=== PATIENT | male | born 1965 | race Caucasian/White ===

== ENCOUNTER 2017-08-06 20:13 | Inpatient (IN) ==
[2017-08-06] MEDS ORDERED: Aspirin 81 MG TAB.CHEW PO ONE (20:44)
[2017-08-06] MEDS ORDERED: 0.9 % Sodium Chloride 500 ML IVC ONE (20:44)
[2017-08-06] MEDS ORDERED: Clindamycin 600 MG/50 ML 600 MG/50 ML IV.SOLN IVPB ONE (20:46)
[2017-08-06] MEDS ORDERED: cefTRIAXone 1,000 MG in Water for inj. (sterile) 20 ML 10 ML IVP ONE (20:46)
[2017-08-06] MEDS ORDERED: Isovue-370 500 ML INFUS..BTL IV ONE (20:46)
[2017-08-06 21:08] LABS: Hematocrit 38.7 % (37.5-50.1); Hemoglobin 12.7 g/dL (12.9-16.9); Mean Corpuscular HGB Conc 32.8 g/dL (31.6-35.5); Mean Corpuscular Hemoglobin 28.9 pg (28.0-33.3); Mean Corpuscular Volume 88.2 fL (83.0-100.0); Mean Platelet Volume 10.3 fL (9.4-12.4); Platelet Count 221 K/mcL (140-400); Red Blood Count 4.39 M/mcL (4.19-5.50); Red Cell Distribution Width 13.9 % (11.5-14.5)
[2017-08-06 21:12] LABS: BUN/Creatinine Ratio 13 (6-26); Blood Urea Nitrogen 31 mg/dL (6-20); Carbon Dioxide 24 mEq/L (23-29); Chloride 101 mEq/L (98-107); Glucose 112 mg/dL (70-105); Osmolality,Calculated 281 (280-300); Sodium 132 mEq/L (136-145); Troponin I < 0.03 ng/mL (< 0.04); eGFR For African Americans 34 (> 60); eGFR For Non-African Americans 28 (> 60)
[2017-08-06 21:15] LABS: INR 1.2; Prothrombin Time 12.9 Seconds (9.4-12.1)
[2017-08-06] MEDS ORDERED: 0.9 % Sodium Chloride 1,000 ML IVC ONE (21:28)
--- NOTE | 2017-08-06 21:37 | Emergency Department Note ---
Disposition Clinical Impression: Dehydration, Acute renal insufficiency Chest pain Qualifiers: Chest pain type: unspecified Qualified Code(s): R07.9 - Chest pain, unspecified Fever Qualifiers: Fever type: unspecified Qualified Code(s): R50.9 - Fever, unspecified Pharyngitis Qualifiers: Pharyngitis/tonsillitis etiology: unspecified etiology Qualified Code(s): J02.9 - Acute pharyngitis, unspecified Disposition: Admitted As Inpatient Condition: Fair Referrals: Salas Norman CNP [Primary Care Provider] - Forms: ED Satisfaction Letter Time of Disposition: 23:05 General Adult HPI - General Chief complaint: ED Chest Pain Stated complaint: swollen tongue/chest pain Time Seen by Provider: 08/06/17 20:15 Source: patient, EMS Mode of arrival: EMS Limitations: no limitations Nursing Notes Reviewed: Yes Vital Signs Reviewed: Yes - History of Present Illness HPI Narrative: Patient presents emergency room with complaint of generalized malaise and chest discomfort and pain. Patient was diagnosed with a sore throat and strep infections based on antibiotics within the last several days. Over that timeframe is progressively gotten worse to the point now where he feels that his teeth are hurting and he has swelling to his face. He has not been able to eat or drink anything feels generally ill. Patient denies any other trauma or injury. Denies any other medical issues at this time. Patient was just concerned because he is feeling so sick and decided to come into the emergency room Onset (ago): day(s) Location: head, face Radiation: non-radiation Pain Severity: moderate Pain Scale: 8 Quality: aching Consistency: constant Improves with: nothing Worsens with: movement Associated symptoms: Reports: chest pain, cough, fever/chills, loss of appetite , malaise Treatments Prior to Arrival: none - Related Data Home Medications Medication Instructions Recorded Confirmed No Known Home Drugs 08/06/17 08/06/17 Allergies Allergy/AdvReac Type Severity Reaction Status Date / Time gabapentin [From Neurontin] AdvReac Nausea Verified 08/06/17 21:48 pregabalin [From Lyrica] AdvReac Nausea Verified 08/06/17 21:48 All systems ED: reviewed and negative except as stated. Review of Systems: As Per HPI Constitutional: Reports: fever, chills, weakness ENT ED: Reports: throat pain, dental pain. Denies: ear pain, hearing loss, epistaxis Cardiovascular: Reports: chest pain. Denies: palpitations, dyspnea on exertion , orthopnea, edema Respiratory: Reports: cough. Denies: dyspnea, wheezes Gastrointestinal: Denies: nausea, vomiting, diarrhea Genitourinary: Denies: dysuria, frequency Musculoskeletal: Reports: back pain. Denies: neck pain Integumentary: Denies: rash, abrasion Neurological: Denies: headache Endocrine: Reports: fatigue Past Medical History - Past Medical History Attestation: Yes The following information was validated with the patient. Source: patient Medical history: Reports: GERD, kidney stones, other Surgical history: Reports: other Psychiatric history: Reports: no psych history - Social History Smoking Status: Current every day smoker Smokeless Tobacco Status: No Alcohol use: Reports: none Drug use: Reports: none Physical Exam - General Limitations: no limitations General appearance: alert, in no apparent distress - Head Head exam: atraumatic, normocephalic, normal inspection - ENT ENT exam: normal exam, normal oropharynx, mucous membranes moist - Neck Neck exam: Present: normal inspection, trachea midline, tenderness, lymphadenopathy. Absent: meningismus - Chest Chest inspection: Present: normal inspection, symmetric chest wall rise. Absent : tenderness - Respiratory Respiratory exam: Present: normal lung sounds bilaterally. Absent: respiratory distress, wheezes, accessory muscle use - Cardiovascular Cardiovascular exam: Present: regular rate, normal rhythm, normal heart sounds - Abdominal Exam Abdominal exam: Present: soft, Non-Tender. Absent: tenderness, distention, guarding, rebound, rigidity, Harris's sign, Rovsing's sign, tenderness at McBurney's Point - Extremities Exam Extremities exam: Present: normal inspection, full ROM, normal capillary refill. Absent: tenderness - Back Exam Back exam: Present: normal inspection, full ROM. Absent: tenderness, CVA tenderness (R), CVA tenderness (L) - Neurological Exam Neurological exam: Present: alert, oriented X3, CN II-XII intact, normal gait - Skin Skin exam: Present: warm, dry, intact, normal color Course Course Narrative: Patient seen and examined the time of arrival. See history of present illness. Vital signs reviewed on presentation. Patient is a very ill-appearing gentleman does appear to be in some moderate distress. He was just diagnosed with strep pharyngitis and placed on antibiotics. He also had a dental infection. Patient has been taking his medications at home without relief. He presents here today with persistence of his generalized malaise is uncomfortable presentation muscle aches and a sore throat that is progressively getting worse. He feels that he is unable to eat or drink anything. Currently he also has a complaint of chest discomfort and pain. Is mainly when he swallows. Patient denies any trauma, injury, shortness of breath. He does complain of nausea. No vomiting or diarrhea. He has had intermittent fevers and chills. He has no vision changes or other illnesses at this point. Patient is concerning for oral fashion. An infection including uveitis, tracheitis, potential epiglottitis or persistent strep infection. Patient was CT imaging of the soft tissue of the neck as well as the basal facial bones looking for infectious. Patient will have laboratory workup including CBC chemistry blood cultures throat swab urinalysis completed here as well as fluid hydration and antibiotics and pain medication as needed. Patient's management will be determined once workup and treatment course are established. Otherwise patient does not have any acute pathology noted at this time. The oropharynx was reviewed. There is no visible signs of asymmetry is midline. Tonsils are enlarged at +2 bilaterally and nontoxic. Patient has slight trismus on exam will not open the mouth entirely. Otherwise is handling his secretions without any problem. - Reevaluation(s) Reevaluation #1: Patient's IV contrasted scans of the face and the neck or cancel this time secondary to acute renal insufficiency. Patient's creatinine today is 2.4 minutes never been greater than 0.8 in the past. Fluid hydration will be given. Patient was also febrile to 100.5. Blood cultures and Biaxin started been ordered. Patient had lactic acid at this time. We will continue monitor his treatment course is completed. Patient will most likely need admission Time: 21:43 Reevaluation #2: Patient has CT imaging of the neck does not show any focal fluid accumulation. There is slight swelling. Repeat evaluation of the face was completed by myself the patient's eye transvenous but uvula is midline and there is no swelling. The hospitalist Dr. Sahni and reviewed the presentation symptoms. He did not have any other acute recommendations this time. Patient will be admitted for fluid hydration and evaluation of her presentation a cause the [place] I here today. Patient is otherwise clinically stable informed the plan. Antibiotics have been started. Patient is in some slight distress but getting better after the interventions have been given. Admission process to be completed this time. Time: 23:04 Vital Signs Temperature 100.5 F H 08/06/17 20:20 Pulse Rate 94 08/06/17 20:20 Respiratory Rate 16 08/06/17 20:20 Blood Pressure 123/83 08/06/17 20:20 O2 Sat by Pulse Oximetry 98 08/06/17 20:20 Temperature 100.5 F H 08/06/17 20:20 Pulse Rate 94 08/06/17 20:20 Respiratory Rate 16 08/06/17 20:20 Blood Pressure 123/83 08/06/17 20:20 O2 Sat by Pulse Oximetry 98 08/06/17 20:20 Oxygen Delivery Oxygen Delivery Room Air Medical Decision Making - MDM Narrative Medical decision making narrative: Fevers, generalized malaise, sore throat, acute renal insufficiency and dehydration - Medical Records Medical records reviewed: Yes I reviewed the patient's medical records. - Lab Data Lab results reviewed: Yes I reviewed the patient's lab results. Result diagrams: 08/06/17 20:54 08/06/17 20:54 Lab Results 08/06/17 08/06/17 08/06/17 Range/Units 20:44 20:45 20:54 WBC 9.6 (4.3-11.1) K/mcL RBC 4.39 (4.19-5.50) M/mcL Hgb 12.7 L (12.9-16.9) g/dL Hct 38.7 (37.5-50.1) % MCV 88.2 (83.0-100.0) fL MCH 28.9 (28.0-33.3) pg MCHC 32.8 (31.6-35.5) g/dL RDW 13.9 (11.5-14.5) % Plt Count 221 (140-400) K/mcL MPV 10.3 (9.4-12.4) fL Immature Gran % Test Not Performed Seg Neutrophils % 62.0 % Band Neutrophils % 22.0 H (0-4) % Lymphocytes % 10.0 % Monocytes % 6.0 % Eosinophils % Test Not Performed Basophils % Test Not Performed Neutrophils # 8.1 (1.6-8.9) K/mcL Lymphocytes # 1.0 (0.6-4.6) K/mcL Monocytes # 0.6 (0.0-1.3) K/mcL Eosinophils # Test Not Performed Basophils # Test Not Performed Platelet Estimate Normal (Normal) PT 12.9 H (9.4-12.1) Seconds INR 1.2 APTT 30.0 (26.0-36.0) Seconds Sodium (136-145) mEq/L Potassium (3.5-5.1) mEq/L Chloride (98-107) mEq/L Carbon Dioxide (23-29) mEq/L BUN (6-20) mg/dL Creatinine (0.70-1.30) mg/dL Est GFR ( Amer) (> 60) Est GFR (Non-Af Amer) (> 60) BUN/Creatinine Ratio (6-26) Glucose (70-105) mg/dL Calculated Osmolality (280-300) Lactic Acid (0.5-2.2) mmol/L Calcium (8.6-10.3) mg/dL Total Bilirubin (0.3-1.0) mg/dL Direct Bilirubin (0.0-0.2) mg/dL Indirect Bilirubin (0.0-1.2) mg/dL AST (13-39) Units/L ALT (7-52) Units/L Alkaline Phosphatase (34-104) Units/L Troponin I (< 0.04) ng/mL B-Natriuretic Peptide 91 (Less than 100) pg/mL Serum Total Protein (6.4-8.9) g/dL Albumin (3.5-5.7) g/dL Globulin (2.4-3.5) g/dL Albumin/Globulin Ratio (1.1-2.2) Lipase (11-82) Units/L 08/06/17 08/06/17 Range/Units 20:54 21:52 WBC (4.3-11.1) K/mcL RBC (4.19-5.50) M/mcL Hgb (12.9-16.9) g/dL Hct (37.5-50.1) % MCV (83.0-100.0) fL MCH (28.0-33.3) pg MCHC (31.6-35.5) g/dL RDW (11.5-14.5) % Plt Count (140-400) K/mcL MPV (9.4-12.4) fL Immature Gran % Seg Neutrophils % % Band Neutrophils % (0-4) % Lymphocytes % % Monocytes % % Eosinophils % Basophils % Neutrophils # (1.6-8.9) K/mcL Lymphocytes # (0.6-4.6) K/mcL Monocytes # (0.0-1.3) K/mcL Eosinophils # Basophils # Platelet Estimate (Normal) PT (9.4-12.1) Seconds INR APTT (26.0-36.0) Seconds Sodium 132 L (136-145) mEq/L Potassium 4.0 (3.5-5.1) mEq/L Chloride 101 (98-107) mEq/L Carbon Dioxide 24 (23-29) mEq/L BUN 31 H (6-20) mg/dL Creatinine 2.43 H (0.70-1.30) mg/dL Est GFR ( Amer) 34 L (> 60) Est GFR (Non-Af Amer) 28 L (> 60) BUN/Creatinine Ratio 13 (6-26) Glucose 112 H (70-105) mg/dL Calculated Osmolality 281 (280-300) Lactic Acid 0.9 (0.5-2.2) mmol/L Calcium 9.0 (8.6-10.3) mg/dL Total Bilirubin 0.5 (0.3-1.0) mg/dL Direct Bilirubin 0.2 (0.0-0.2) mg/dL Indirect Bilirubin 0.3 (0.0-1.2) mg/dL AST 24 (13-39) Units/L ALT 14 (7-52) Units/L Alkaline Phosphatase 93 (34-104) Units/L Troponin I < 0.03 (< 0.04) ng/mL B-Natriuretic Peptide (Less than 100) pg/mL Serum Total Protein 6.6 (6.4-8.9) g/dL Albumin 3.4 L (3.5-5.7) g/dL Globulin 3.2 (2.4-3.5) g/dL Albumin/Globulin Ratio 1.1 (1.1-2.2) Lipase 6 L (11-82) Units/L - Radiology Data Radiology results reviewed: Yes I reviewed the patient's radiology results. Chest x-ray is unremarkable for acute infectious etiology or trauma - EKG Data EKG #1 EKG attestation: Yes I reviewed and interpreted this EKG. EKG results narrative: EKG shows sinus rhythm. Ventricular rate of 96. [place] interval 123. QRS duration 102. QTC of 380. [place] appears to be slightly leftward deviated. Intervals appear to be normal. No acute signs of ST segment elevation or abnormality. No acute signs of WPW or Brug[place]. Patient has comparable EKG from 11/17/15 with no acute changes.
[2017-08-06 22:03] LABS: Alanine Aminotransferase 14 Units/L (7-52); Albumin 3.4 g/dL (3.5-5.7); Albumin/Globulin Ratio 1.1 (1.1-2.2); Alkaline Phosphatase 93 Units/L (34-104); Aspartate Amino Transferase 24 Units/L (13-39); Bilirubin,Direct 0.2 mg/dL (0.0-0.2); Bilirubin,Indirect 0.3 mg/dL (0.0-1.2); Bilirubin,Total 0.5 mg/dL (0.3-1.0); Globulin 3.2 g/dL (2.4-3.5); Lipase 6 Units/L (11-82); Total Protein 6.6 g/dL (6.4-8.9)
[2017-08-06 22:04] LABS: Monocytes # 0.6 K/mcL (0.0-1.3); Neutrophils # 8.1 K/mcL (1.6-8.9)
[2017-08-06 22:06] LABS: Platelet Estimate Normal (Normal)
[2017-08-06] MEDS ORDERED: Ondansetron 4 MG/2 ML VIAL IVP ONE (22:15)
[2017-08-06] MEDS ORDERED: Dexamethasone 4 MG/ML VIAL IVP ONE (22:18)
[2017-08-06] MEDS ORDERED: *HR* FentaNYL (PF) 100 MCG/2 ML VIAL IVP ONE (22:18)
[2017-08-07] MEDS: Chloraseptic Spray 177 ML BOTTLE MM PRN ×2 (00:46→03:23)
[2017-08-07] MEDS: Ondansetron 4 MG/2 ML VIAL IVP PRN ×3 (00:49→22:25)
[2017-08-07] MEDS ORDERED: Naloxone 0.4 MG/ML INJ IVP PRN (01:00)
--- NOTE | 2017-08-07 01:13 | Internal Med History&Physical ---
Date of Encounter: 08/07/17 Time of Encounter: 01:09 Internal Medicine - H&P: HPI Chief complaint: throat pain Admitted From: Emergency Dept Plans for Post Hospital Care: Home History of present illness: Mr. Wilson is a 52 year old male with PMHx of lumbar radiculopathy, degenerative disc disease, CAD, HLD, history of drug abuse (cocaine, methamphetamine). Patient arrived to the ED today with chief complaint of generalized malaise, chest discomfort, throat pain that has progressively been getting worse, poor oral intake. Patient states that he started to have their pain that started about 3 days ago. He also reported headaches and pain in both of his ears. At that time he went to urgent care and was diagnosed with a strep infection. He was started on antibiotics. However, his throat pain has progressively been getting worse. He admits to nausea, vomiting over the past few days. He had about 3-4 episodes of diarrhea yesterday. He admits to subjective fevers and chills. He denies cough, admits to chest discomfort on the left side, admits to shortness of breath. He also states that he is not been eating or drinking well. He reports about a 20 pound weight loss over the past 2 months. Social history: denies alcohol use, history of cocaine and methamphetamine use, last use about a month ago. Denies history of IV drug use. Past Med Surg Social Fam HX - Past Medical History Medical history: GERD, kidney stones Psychiatric history: no psych history - Past Surgical History Surgical History: other - Social History Smoking Status: Current every day smoker Smokeless Tobacco Status: No Alcohol use: none Drug use: methamphetamine - Family History Mother Hx Family Cancer: Yes (lymphoma) Father Hx Family Endocrine Disorder: Yes (DM) Internal Medicine - H&P: Meds No Known Home Drugs 08/06/17 [History] 3 Allergy/AdvReac Type Severity Reaction Status Date / Time gabapentin [From Neurontin] AdvReac Nausea Verified 08/06/17 21:48 pregabalin [From Lyrica] AdvReac Nausea Verified 08/06/17 21:48 All Systems PM: A 10-system review of systems was performed and is negative for pertinent findings except as documented above in the HPI. - Constitutional Vitals: Temp Pulse Resp BP Pulse Ox 98.5 F 88 18 138/81 100 08/06/17 22:46 08/06/17 22:46 08/06/17 22:46 08/06/17 22:46 08/07/17 00:27 General appearance: Present: A&O X 3, pleasant, severe distress (Secondary to throw pain. Patient is toxic appearing.) - ENT ENT exam: Present: mucous membranes moist Additional comments: Uvula appear swollen, bilateral tonsils appear enlarged, could not get a good few because patient had pain upon opening his mouth. - Respiratory Respiratory exam: Present: CTAB - Cardiovascular Cardiovascular exam: Present: RRR, +S1, +S2 - GI/Abdominal GI/Abdominal exam: Present: normal bowel sounds, soft. Absent: distended, tenderness - Extremities Exam Extremities exam: Absent: cyanotic, pedal edema - Neurological Exam Neurological exam: Present: alert, oriented X3 - Psychiatric Psychiatric exam: Present: anxious - Skin Skin exam: Present: intact Internal Med - H&P Results - Labs CBC & Chem 7: 08/06/17 20:54 08/06/17 20:54 - Assessment and plan (1) Sepsis Current Visit: No Status: Acute Assessment and plan: Patient had symptoms of throat pain that started about 3 days ago. He went urgent care and was given antibiotics for strep infection. However, his throat pain was progressively getting worse so he came to the emergency department. Face CT showed no acute traumatic injury of the facial bones, nasal bone deformity of indeterminate age present. Chronic pacification of the left frontal sinus with air fluid level in the left maxillary sinus. Right tonsillar enlargement was not well visualized. Soft tissue neck CT showed fullness of the right [place] tonsillar fossa, right pharyngeal wall extending into the hypopharynx, edematous changes in the right submandibular space. Chest x-ray was unremarkable. Upon arrival to the ED, patient had fever of 100.5, HR in 90s, 22% band neutrophils. Suspected source of infection: pharyngitis. Lactic acid 0.9 strep screen negative Plan: IVF for LESLIE clindamycin consult to ENT in the am. Qualifiers: Sepsis type: sepsis due to unspecified organism Qualified Code(s): A41.9 - Sepsis, unspecified organism (2) Pharyngitis Current Visit: Yes Status: Acute Assessment and plan: Plan as above Qualifiers: Pharyngitis/tonsillitis etiology: unspecified etiology Qualified Code(s): J02.9 - Acute pharyngitis, unspecified (3) LESLIE (acute kidney injury) Current Visit: Yes Status: Acute Assessment and plan: Suspect prerenal etiology secondary to dehydration in setting of poor oral intake plan: IV fluids UA check urine sodium and urine creatinine recheck kidney function with morning lobs. (4) Tobacco abuse Current Visit: No Status: Chronic Assessment and plan: nicotine patch PRN (5) Chest pain Current Visit: Yes Status: Acute Assessment and plan: patient reports chest pain EKG unremarkable will trend troponins. Qualifiers: Chest pain type: chest pain due to myocardial ischemia Ischemic chest pain type: unspecified angina pectoris type Qualified Code(s): I25.9 - Chronic ischemic heart disease, unspecified (6) DVT prophylaxis Current Visit: No Status: Acute Assessment and plan: heparin SQ - Time Spent With Patient Total time spent is greater than 50% in coordination of care (as documented) at patient's floor/unit and/or counseling patient:
[2017-08-07] MEDS: 0.9 % Sodium Chloride 1,000 ML IVC SCH ×5 (01:16→20:57)
[2017-08-07] MEDS ORDERED: Nicotine 14 MG PATCH.TD24 TD PRN (01:18)
[2017-08-07 01:34] LABS: Basophils % 0.2 %; Eosinophils % 0.1 %; Hematocrit 35.8 % (37.5-50.1); Hemoglobin 11.9 g/dL (12.9-16.9); Immature Granulocytes % 0.2 % (0-4); Lymphocytes # 0.4 K/mcL (0.6-4.6); Lymphocytes % 4.4 %; Mean Corpuscular HGB Conc 33.2 g/dL (31.6-35.5); Mean Corpuscular Hemoglobin 29.1 pg (28.0-33.3); Mean Corpuscular Volume 87.5 fL (83.0-100.0); Mean Platelet Volume 10.1 fL (9.4-12.4); Monocytes # 0.4 K/mcL (0.0-1.3); Platelet Count 198 K/mcL (140-400); Red Blood Count 4.09 M/mcL (4.19-5.50); Red Cell Distribution Width 13.8 % (11.5-14.5); Segmented Neutrophils % 91.1 %
[2017-08-07 01:50] LABS: Calcium 8.4 mg/dL (8.6-10.3); Magnesium 1.8 mg/dL (1.6-2.6); Phosphorous 2.1 mg/dL (2.7-4.5); Potassium 4.5 mEq/L (3.5-5.1)
[2017-08-07 02:18] LABS: Platelet Estimate Normal (Normal)
--- NOTE | 2017-08-07 02:21 | Event Note ---
Date of Encounter: 08/07/17 Time of Encounter: 02:16 Patient seen and examined. I agree with the H&P as written by the Resident Physician. Patient with recent diagnosis of strep pharyngitis??? put on oral abx from urgent care. Comes with worsening sore throat and poor PO intake. Imaging studies in ED done without contrast showed right tonsilar enlargement. Patient has b/l tonsilar swelling on examination, although he is not able to open his mouth fully. Patient is febrile in the ED. Labs show acute kidney failure. No respiratory symptoms, CTAB RRR. S1, S2, No m/r/g Abd soft, NT, ND No edema, 2+DP Will admit IV clindamycin c/s ENT. IV fluids NPO continuous pulse ox
[2017-08-07 03:54] LABS: Color,Urine Dark Yellow (Yellow)
[2017-08-07 03:55] LABS: Bilirubin,Urine Negative (Negative); Blood,Urine Negative (Negative); Clarity,Urine Clear (Clear); Glucose,Urine (UA) Normal (Normal); Ketones,Urine Negative (Negative); Leukocyte Esterase,Urine Negative (Negative); Nitrite,Urine Negative (Negative); PH,Urine 5.5 pH Units (5.0-8.0); Protein,Urine 100 mg/dL (Neg-Trace); Specific Gravity,Urine 1.021 (1.010-1.025); Urobilinogen,Urine Normal (Normal)
[2017-08-07 03:59] LABS: Sodium, Urine 54.4 mEq/L
[2017-08-07] MEDS: *HR* Heparin 5,000 UNIT/ML VIAL SQ SCH ×2 (05:24→16:10)
[2017-08-07] MEDS ORDERED: Clindamycin 600 MG/50 ML 600 MG/50 ML IV.SOLN IVPB SCH (08:00)
[2017-08-07] MEDS: Clindamycin 900 MG/50 ML 900 MG/50 ML IV.SOLN IVPB SCH ×2 (08:39→16:09)
[2017-08-07] MEDS: Dexamethasone 10 MG/ML VIAL IVP SCH ×2 (08:45→16:09)
[2017-08-07] MEDS ORDERED: OXYCODONE Oral CONC 10 MG/0.5 ML ORAL.SYG SL ONE (09:00)
--- NOTE | 2017-08-07 09:11 | ENT - Consult Note ---
Date of Encounter: 08/07/17 Time of Encounter: 09:08 Assessment and Plan (1) Tonsillitis Current Visit: Yes Status: Acute (2) Peritonsillar abscess Current Visit: Yes Status: Acute Pt examined today in moderate distress admitted overnight. I am concerned for right UPPER CUTTER MACHINE with developing ludwigs angina due to his developing submandibular edema. CT reviewed - limited exam without contrast - submandibular and parapharyngeal edema, small effusions possibly but no large fluid collections or definite abscess He needs initiation of IV abx BRII as well as steroids Recommend Clinda 900 IV q8 for now and Decadron 10mg q8 x 3 doses Temp 99.1 - follow temp curves WBC wnl thus far Source is likely UPPER CUTTER MACHINE or possible dental etiology Keep in NPO for now, I will re-examin mid day for improvement with therapies and perform NPL to eval the rest of the airway Low threshold for OR this afternoon for drainage if no improvement Pain and nausea control History of Present Illness Consult date: 08/07/17 Reason for ENT Consult: peritonsillar abscess History of present illness: Pt is a 52 male with sore throat and dysphagia x 4 days. Has failed outpatient po abx, but he is unsure what he has taken. Reports increasing sore throat, difficulty swallowing, and now trouble with secretions that has increased over the last 12 hours. Denies SOB or dyspnea or CP. Denies prior episodes like this. Admits to prior drug use but denies immune deficiency or HIV. Admits to multiple dental caries including mandibular molars b/l. He has not had much to eat over the last few days due to odynophagia. This am he is in moderate pain and having nausea. Past Med Surg Social Fam HX - Past Medical History Medical history: GERD, kidney stones Psychiatric history: no psych history - Past Surgical History Surgical History: other - Social History Smoking Status: Current every day smoker Smokeless Tobacco Status: No Alcohol use: none Drug use: methamphetamine - Family History Mother Hx Family Cancer: Yes (lymphoma) Father Hx Family Endocrine Disorder: Yes (DM) Medications and Allergies No Known Home Drugs 08/06/17 [History] 3 Allergy/AdvReac Type Severity Reaction Status Date / Time gabapentin [From Neurontin] AdvReac Nausea Verified 08/06/17 21:48 pregabalin [From Lyrica] AdvReac Nausea Verified 08/06/17 21:48 ENT - ROS All systems PM: reviewed and no additional remarkable complaints except as stated - Constitutional Constitutional ROS: as per HPI ENT Exam Initial Vital Signs Temp Pulse Resp BP Pulse Ox 100.5 F H 94 16 123/83 98 08/06/17 20:20 08/06/17 20:20 08/06/17 20:20 08/06/17 20:20 08/06/17 20:20 - General physical appearance well developed, well nourished, moderate distress - Eyes normal ocular movement - ENT normal pinna, normal nares, Other (+Trismus thus limited oral exam, left uvular deviation and probable right UPPER CUTTER MACHINE. There is edema within the submandibular space and TTP throughout the neck exam.) - Neck other (TTP, submandibular edema) - Respiratory normal expansion, normal respiratory effort - Abdomen Abdomen: no distended - Integumentary no rash, no growths - Neurologic CN 2-12 grossly intact, normal coordination, normal sensation - Musculoskeletal normal posture - Psychiatric oriented to time, oriented to person, oriented to place Exam Initial Vital Signs Temp Pulse Resp BP Pulse Ox 100.5 F H 94 16 123/83 98 08/06/17 20:20 08/06/17 20:20 08/06/17 20:20 08/06/17 20:20 08/06/17 20:20 Results - Labs 08/07/17 01:17 08/07/17 01:17 Abnormal lab results RBC 4.09 M/mcL (4.19-5.50) L 08/07/17 01:17 Hgb 11.9 g/dL (12.9-16.9) L 08/07/17 01:17 Hct 35.8 % (37.5-50.1) L 08/07/17 01:17 Band Neutrophils % 22.0 % (0-4) H 08/06/17 20:54 Lymphocytes # 0.4 K/mcL (0.6-4.6) L 08/07/17 01:17 PT 12.9 Seconds (9.4-12.1) H 08/06/17 20:44 Sodium 134 mEq/L (136-145) L 08/07/17 01:17 Carbon Dioxide 21 mEq/L (23-29) L 08/07/17 01:17 BUN 32 mg/dL (6-20) H 08/07/17 01:17 Creatinine 2.40 mg/dL (0.70-1.30) H 08/07/17 01:17 Est GFR ( Amer) 35 (> 60) L 08/07/17 01:17 Est GFR (Non-Af Amer) 29 (> 60) L 08/07/17 01:17 Glucose 121 mg/dL (70-105) H 08/07/17 01:17 Calcium 8.4 mg/dL (8.6-10.3) L 08/07/17 01:17 Phosphorus 2.1 mg/dL (2.7-4.5) L 08/07/17 01:17 Albumin 3.4 g/dL (3.5-5.7) L 08/06/17 20:54 Lipase 6 Units/L (11-82) L 08/06/17 20:54 Urine Protein 100 mg/dL (Neg-Trace) H 08/07/17 03:25 Diabetes panel 08/07/17 Range/Units 01:17 Sodium 134 L (136-145) mEq/L Potassium 4.5 (3.5-5.1) mEq/L Chloride 105 (98-107) mEq/L Carbon Dioxide 21 L (23-29) mEq/L BUN 32 H (6-20) mg/dL Creatinine 2.40 H (0.70-1.30) mg/dL Glucose 121 H (70-105) mg/dL Calcium 8.4 L (8.6-10.3) mg/dL Calcium panel 08/07/17 Range/Units 01:17 Calcium 8.4 L (8.6-10.3) mg/dL Phosphorus 2.1 L (2.7-4.5) mg/dL Pituitary panel 08/07/17 Range/Units 01:17 Sodium 134 L (136-145) mEq/L Potassium 4.5 (3.5-5.1) mEq/L Chloride 105 (98-107) mEq/L Carbon Dioxide 21 L (23-29) mEq/L BUN 32 H (6-20) mg/dL Creatinine 2.40 H (0.70-1.30) mg/dL Glucose 121 H (70-105) mg/dL Calcium 8.4 L (8.6-10.3) mg/dL Adrenal panel 08/07/17 Range/Units 01:17 Sodium 134 L (136-145) mEq/L Potassium 4.5 (3.5-5.1) mEq/L Chloride 105 (98-107) mEq/L Carbon Dioxide 21 L (23-29) mEq/L BUN 32 H (6-20) mg/dL Creatinine 2.40 H (0.70-1.30) mg/dL Glucose 121 H (70-105) mg/dL Calcium 8.4 L (8.6-10.3) mg/dL All other labs normal. Consult Discharge Plan - Plan Referrals: Salas Norman, [facility] [Primary Care Provider] -
[2017-08-07] MEDS: *HR* FentaNYL (PF) 100 MCG/2 ML VIAL IVP PRN ×2 (11:32→20:57)
--- NOTE | 2017-08-07 13:29 | Event Note ---
Date of Encounter: 08/07/17 Time of Encounter: 13:26 S: I saw the patient again over the lunch hour. Less diaphoresis and distress. He appeared more calm and voice was improved. Still with pain and odynophagia. O: Tmax 99.5 from 99.1 this am. VSS WBC wnl Improved trismus from morning exam A: 1. Right COPYWRITING INTERN 2. tonsillitis 3. Dental caries 4. Neck swelling Procedure: COPYWRITING INTERN I&D Preop dx: Right COPYWRITING INTERN Postop dx: same Procedure in detail: Consent was obtained. The soft palate was anesthetized with topical benzocaine spray and 1ml of injected 1% lidocaine with epi. A 19 gauge needle was used to aspirate the area of COPYWRITING INTERN. No birgit purulence encountered but thin turbid fluid - likely phlegmon effusion - was aspirated. An 11 blade was used to make an incision in the soft palate to allow continue egress of infection and opened with a hemostat. He was hemostatic at the end of the procedure and tolerated it well. Plan: Bedside I&D of COPYWRITING INTERN done today. Pt tolerated well with immediate improvement in trismus and voice. No birgit purulence encountered but turbid thin fluid was aspirated. Continue IV therapies - Clinda and Decadron - add Unasyn Would like a repeat neck CT with contrast tomorrow morning if possible Hope for improvement, but may need more formal drainage in OR. NPO at [facility]
--- NOTE | 2017-08-07 14:22 | Internal Med Progress Note ---
Date of Encounter: 08/07/17 Time of Encounter: 14:19 - Assessment and plan (1) Sepsis Current Visit: No Status: Acute Assessment and plan: sepsis 2ry to right peritonsillar abscess/Dima's angina s/p I and D Patient had symptoms of throat pain that started about 5 days ago. He went urgent care and was given Keflex ( took it for 1 1/2 days) for strep infection. Throat pain was progressively getting worse Face CT showed no acute traumatic injury of the facial bones, nasal bone deformity of indeterminate age present. Chronic pacification of the left frontal sinus with air fluid level in the left maxillary sinus. Right tonsillar enlargement was not well visualized. Soft tissue neck CT showed fullness of the right [place] tonsillar fossa, right pharyngeal wall extending into the hypopharynx, edematous changes in the right submandibular space. Chest x-ray was unremarkable. Upon arrival to the ED, patient had fever of 100.5, HR in 90s, 22% band neutrophils. Suspected source of infection: pharyngitis. Lactic acid 0.9 strep screen negative IVF clindamycin day 2 ( was going to receive Unasyn but apparently failed Kefflex add vancomycin, ID consulted Decadron IV ENT following the case CT of the neck with contrast in am IF renal function improves Qualifiers: Sepsis type: sepsis due to unspecified organism Qualified Code(s): A41.9 - Sepsis, unspecified organism (2) Tobacco abuse Current Visit: No Status: Chronic Assessment and plan: nicotine patch PRN (3) Pharyngitis Current Visit: Yes Status: Acute Assessment and plan: Plan as above Qualifiers: Pharyngitis/tonsillitis etiology: unspecified etiology Qualified Code(s): J02.9 - Acute pharyngitis, unspecified (4) LESLIE (acute kidney injury) Current Visit: Yes Status: Acute Assessment and plan: DUe to sepsis Suspect prerenal etiology secondary to dehydration in setting of poor oral intake plan: IV fluids (5) Chest pain Current Visit: Yes Status: Acute Assessment and plan: patient reports chest pain EKG unremarkable Qualifiers: Chest pain type: chest pain due to myocardial ischemia Ischemic chest pain type: unspecified angina pectoris type Qualified Code(s): I25.9 - Chronic ischemic heart disease, unspecified - Time Spent With Patient Total time spent is greater than 50% in coordination of care (as documented) at patient's floor/unit and/or counseling patient: - Constitutional Vitals: Temp Pulse Resp BP Pulse Ox 99.5 F 88 14 118/76 98 08/07/17 10:30 08/07/17 10:30 08/07/17 10:30 08/07/17 10:30 08/07/17 10:30 General appearance: Present: A&O X 3, pleasant, severe distress (Secondary to throw pain. Patient is toxic appearing.) - Head Head exam: Present: atraumatic, normocephalic - Eye Eye exam: Present: PERRL, conjuntiva pink, sclera anicteric Pupils: Present: PERRL - Neck Neck exam general surgery: Present: supple, trachea midline. Absent: lymphadenopathy - Respiratory Respiratory exam: Present: CTAB. Absent: accessory muscle use, rales, rhonchi, wheezes - Cardiovascular Cardiovascular exam: Present: RRR, +S1, +S2. Absent: diastolic murmur, gallop, rubs, systolic murmur - GI/Abdominal GI/Abdominal exam: Present: normal bowel sounds, soft, no peritoneal signs. Absent: distended, tenderness - Extremities Exam Extremities exam: Present: warm, radial pulses palpable and symmetrical. Absent : calf tenderness, cyanotic, pedal edema - Neurological Exam Neurological exam: Present: CN II-XII intact, oriented X3, no focal deficits. Absent: pronater drift, facial droop, speech deficit - Expanded Neurological Exam Upper motor neuron: Robson neglect: Normal - Skin Skin exam: Present: dry, intact Additional comments: right tonsillar erythema, tenderness, swelling Internal Medicine: Result - Labs CBC & Chem 7: 08/07/17 01:17 08/07/17 01:17 Labs: Short CBC 08/07/17 Range/Units 01:17 WBC 8.8 (4.3-11.1) K/mcL Hgb 11.9 L (12.9-16.9) g/dL Hct 35.8 L (37.5-50.1) % Plt Count 198 (140-400) K/mcL Neutrophils # 8.0 (1.6-8.9) K/mcL BMP 08/07/17 01:17 Sodium 134 L Potassium 4.5 Chloride 105 Carbon Dioxide 21 L BUN 32 H Creatinine 2.40 H Glucose 121 H Calcium 8.4 L Cardiac Enzymes 08/07/17 08/07/17 Range/Units 01:17 06:37 Troponin I < 0.03 < 0.03 (< 0.04) ng/mL Urine 08/07/17 Range/Units 03:25 Urine Color Dark Yellow (Yellow) Urine Clarity Clear (Clear) Urine pH 5.5 (5.0-8.0) pH Units Ur Specific [place] 1.021 (1.010-1.025) Urine Protein 100 H (Neg-Trace) mg/dL Urine Glucose (UA) Normal (Normal) mg/dL - ABG Interpretation ABG results: PT/INR, D-dimer PT 12.9 Seconds (9.4-12.1) H 08/06/17 20:44 Consult Discharge Plan - Plan Referrals: Salas Norman, RETAIL CLERK [Primary Care Provider] -
--- NOTE | 2017-08-07 14:52 | Infectious Disease Consult ---
Date of Encounter: 08/07/17 Time of Encounter: 14:52 Assessment and Plan (1) Sepsis Status: Acute Assessment and plan: The patient had severe sepsis on admission with three SIRS criteria and LESLIE. Likely secondary to peritonsillar abscess. Improved. Bandemia has resolved. The patient has been afebrile. Tachycardia has improved. Blood cultures drawn x 1 set today are pending. Get additional two sets of blood cultures now. Qualifiers: Sepsis type: sepsis due to unspecified organism Qualified Code(s): A41.9 - Sepsis, unspecified organism (2) Peritonsillar abscess Status: Acute Assessment and plan: Location: right tonsil. Per ENT, likely early peritonsillar abscess. Status post bedside I & D by Dr. Rodrigues 08/07/17. No cultures were obtained. Strep screen negative. Get blood cultures x 2 now. Get throat culture now. Continue clindamycin 900mg IV Q8H. Discontinue Vancomycin. Start probiotics. Duration of treatment depends on the clinical picture. Monitor renal function and dose-adjust antibiotics. (3) LESLIE (acute kidney injury) Status: Acute Assessment and plan: Etiology unclear: Post-infectious vs. prerenal vs. other. RP UTS shows no definite evidence of intrarenal stones or hydronephrosis, but does show evidence of extensive debris in the bladder and significant post-void residual. Continue to trend. Strict I's and O's. Avoid nephrotoxins. Discontinue Vanc. Dose-adjust antibiotics. Consider nephrology consult if fails to improve. (4) Dysuria Status: Acute Assessment and plan: Etiology unclear. UA normal. Repeat UA now given the RP UTS results. Place bo catheter. Consider urology consult. (5) Chest pain Status: Acute Assessment and plan: Etiology unclear. Troponins negative x 3. Further workup and management per the primary team. Qualifiers: Chest pain type: unspecified Qualified Code(s): R07.9 - Chest pain, unspecified (6) History of drug use Status: Acute Assessment and plan: Check HIV and Hepatitis C antibody. (7) Tobacco abuse Status: Chronic Infectious Disease HPI - Data of Consult Patient: new to practice Consult date: 08/07/17 Requesting Physician: Sunita Coleman Primary Care Provider: Salas Norman CNP - Consult Narrative Reason for consult: Peritonsilar abscess History of present illness: Mr. Wilson is a 52 year old male with a past medical history of acid reflux, kidney stones, degenerative disc disease, CAD, and hyperlipidemia. The patient was admitted to the hospital August 06 for dehydration, acute kidney failure, fever , and pharyngitis. We are consulted August 07 for further recommendations for peritonsillar abscess. Briefly, the patient is a 52-year-old male with past medical history as stated above. The patient states that about 3 days prior to admission he began to experience generalized fatigue and malaise and decreased by mouth intake. He states on Sunday he woke up and felt like anaerobe around the neck and was having severe dental pain and inability to swallow. He states he went to [facility] ER and felt that he was treated poorly so he left there and went to the [facility] where he was diagnosed with strep pharyngitis and placed on oral Keflex. He states he did not have a strep screen, but was told he had strep throat based on his symptoms. He states he was unable to get his prescription filled until Sunday, but had worsening of his symptoms so he came to the emergency department Sunday evening. Upon arrival, the patient was febrile and tachycardic and had bandemia. He also had acute kidney injury with a serum creatinine of 2.43. LFTs, CK, and lipase were normal. Troponin was negative. He had a chest x-ray that was negative. He had a CT of the face that showed left maxillary sinusitis and CT of the neck showed fullness of the right palatine tonsillar fossa, right pharyngeal wall extending into the hypopharynx, and effacement of the piriform sinus. He was started empirically on IV clindamycin and admitted to the hospital for further evaluation. Since admission, the patient's bandemia has resolved. His white blood cell count has remained normal. His creatinine is stable. He had a rapid strep screen was negative. Urinalysis was negative. CK level remains normal. He has had an additional 2 troponins are normal. Blood cultures were obtained 1 set this morning. ENT was consult and performed an I&D of a right peritonsillar abscess. Review of the procedure notes reveals that there was turbid fluid, but no birgit pus. ENT has recommended a repeat CT scan of the neck in the morning. Currently, the patient is on IV clindamycin and IV vancomycin. We have been asked to evaluate and make further recommendations. Wheat comfortable. He reports fevers and chills, but denies any rigors. He states that overall he just has not felt very well. He reports frontal headaches, sinus congestion and drainage, and bilateral ear pain. He reports difficulty swallowing due to throat pain. He also reports anterior neck pain and difficulty with range of motion. He reports intermittent chest pain, shortness of breath, and a cough productive of green sputum. He reports intermittent nausea with vomiting and poor by mouth intake. He states he had some diarrhea prior to admission, but has not had any since being admitted to the hospital. He states his appetite and poor he reports about a 20 pound weight loss over the past week and a half due to not being able to take in any food. He reports burning with urination, but denies urinary frequency. He also reports pain in the middle of his back that radiates to bilateral flanks. He states that there is blood in his urine as well. He denies any oral thrush or new skin lesions. The patient lives at home with his girlfriend and children. He reports multiple pets in the home including dogs and cats in rabbits. He denies any recent travel. 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 He reports a history of IV drug use with last use about 3 years ago at which time he snorted cocaine. There is documentation that he reported using meth and cocaine about a month ago , but the patient denies this. He reports he smokes about half a pack of cigarettes per day. He denies any alcohol use. He states his family has had the normal upper respiratory symptoms recently. CC: Sunita Coleman Past Med Surg Social Fam HX - Past Medical History Attestation: Yes The following information was validated with the patient. Source: patient, old records reviewed, nursing notes reviewed Medical history: GERD, kidney stones, other (Degenerative disc disease, CAD, hyperlipidemia) Psychiatric history: no psych history - Past Surgical History Surgical History: other (Heart catheterization that showed minimal occlusion.) - Social History Smoking Status: Current every day smoker Packs per day: 0.5 Smokeless Tobacco Status: No Alcohol use: none Drug use: none Occupational status: employed Current living situation: Home, With Family Activity Level: Independent ambulation Recent Out of Country Travel Within the Last 8 Weeks: No Exposure or Possible Exposure to Illness During Travel: No - Family History Mother Hx Family Cancer: Yes (lymphoma) Father Hx Family Endocrine Disorder: Yes (DM) Infectious Disease-CN:Meds No Known Home Drugs 08/06/17 [History] 3 Allergy/AdvReac Type Severity Reaction Status Date / Time gabapentin [From Neurontin] AdvReac Nausea Verified 08/06/17 21:48 pregabalin [From Lyrica] AdvReac Nausea Verified 08/06/17 21:48 All systems: reviewed and no additional remarkable complaints except as stated Exam - Constitutional Vitals: Temp Pulse Resp BP Pulse Ox 99.5 F 88 14 118/76 98 08/07/17 10:30 08/07/17 10:30 08/07/17 10:30 08/07/17 10:30 08/07/17 10:30 General appearance: average body habitus, cooperative, no acute distress - Head Head exam: Present: atraumatic, normal inspection, normocephalic - Eye Eye exam: Present: EOMI, normal appearance, PERRL Pupils: Present: normal accommodation - ENT ENT exam: Present: mucous membranes moist Additional comments: Regions noted in the oral cavity. Poor dentition. Mild erythema of the posterior pharynx noted. Difficulty visualizing the tonsils due to patient's inability to completely open his mouth. - Neck Neck exam: Present: normal inspection (Mild erythema noted to the anterior, lateral, and posterior lateral neck.), tenderness - Respiratory Respiratory exam: Present: CTAB. Absent: rales, respiratory distress, rhonchi, wheezes - Cardiovascular Cardiovascular exam: Present: RRR, +S1, +S2 - GI/Abdominal GI/Abdominal exam: Present: normal bowel sounds, soft, tenderness (Generalized) . Absent: distended - Extremities Exam Extremities exam: Present: normal inspection. Absent: joint swelling, pedal edema, tenderness - Back Exam Back exam: Present: CVA tenderness (L), CVA tenderness (R), normal inspection, paraspinal tenderness (Lumbar spine, bilateral) - Neurological Exam Neurological exam: Present: alert, oriented X3, no focal deficits - Psychiatric Psychiatric exam: Present: normal affect, normal mood - Skin Skin exam: Present: dry, intact, normal color, warm Infectious Disease CN: Results - Labs CBC & Chem 7: 08/08/17 05:54 08/08/17 05:54 Serology: Serology 08/07/17 08/07/17 Range/Units 03:25 03:25 Urine Color Dark Yellow (Yellow) Urine Clarity Clear (Clear) Urine pH 5.5 (5.0-8.0) pH Units Ur Specific [place] 1.021 (1.010-1.025) Urine Protein 100 H (Neg-Trace) mg/dL Urine Glucose (UA) Normal (Normal) mg/dL Urine Ketones Negative (Negative) mg/dL Urine Blood Negative (Negative) Urine Nitrite Negative (Negative) Urine Bilirubin Negative (Negative) Urine Urobilinogen Normal (Normal) mg/dL Ur Leukocyte Esterase Negative (Negative) Urine Creatinine 136 mg/dL Urine Sodium 54.4 mEq/L Consult Discharge Plan - Plan Referrals: Salas Norman CNP [Primary Care Provider] - - Attending Attestation I examined this patient and my medical decision-making was reviewed with the Resident Physician. I agree with the documented findings, disposition and treatment plan as described except to the extent set forth below. This is an addendum to original report dictated by Eunice Walter CNP. Please refer to Lupe consult note for full detail. Patient is a 52-year-old gentleman with past medical history mentioned below including history of nephrolithiasis and a social history positive for drug use none IV came into the hospital on August 06 for dehydration, acute kidney injury, fevers and pharyngitis. Patient apparently has been having this issue for almost a week with sore throat, runny nose, and anaerobic around his neck. Patient currently was having some dental pain and some dysphagia and odynophagia. Patient apparently went to an outlying facility but he stated that they will redo him and he left from the ER. Patient then went to different hospital in the given [facility] for a day and a half. Patient came back after day and half of treatment stating that he feels worse. Since admission patient had sepsis. His CT scan of the neck revealed right peritonsillar abscess. Patient was seen by ENT and had I&D at bedside. Patient was started initially on clindamycin and vancomycin. We were asked to evaluate the patient and make further recommendations. Patient laying in bed having trouble speaking and significant pain. Patient denies any headache or neck stiffness. Denies any sinus pressure. Denies any chest pain. No nausea vomiting diarrhea or constipation. The only thing he has is the neck pain and the trouble swallowing. Assessment and plan # peritonsillar abscess Severe Sepsis Acute kidney injury Check HIV status and hepatitis C status DC vancomycin Continue clindamycin Await cultures to finalize Adequate pain control Appreciate ENT recommendations Duration of treatment depends on the clinical picture Monitor labs and for drug toxicity
[2017-08-07] MEDS ORDERED: Ampicillin/Sulbactam 3,000 MG in 0.9 % Sodium Chloride Mini Bag 100 ML IVPB SCH (15:00)
[2017-08-07] MEDS ORDERED: Dexamethasone 10 MG/ML VIAL IVP SCH (16:00)
--- NOTE | 2017-08-07 16:19 | Electrocardiograph Report ---
[address] [place], [place] [address] Test Date: 2017-08-06 Pat Name: Lincoln Wilson Department: 102 Room: 3A45 Gender: M Floor Clerk: Valarie : 1965 Requested By: Jonny Velez Order Number: [id number] Reading MD: Nicolasa Jon Measurements Intervals [place] Rate: 96 P: 22 IA: 123 QRS: -9 QRSD: 102 T: 45 QT: 326 QTc: 380 Interpretive Statements SINUS RHYTHM Electronically Signed On 08-07-2017 16:17:53 EDT by Nicolasa Jon
[2017-08-07 19:38] LABS: Bilirubin,Urine Negative (Negative); Blood,Urine Negative (Negative); Clarity,Urine Cloudy (Clear); Color,Urine Yellow (Yellow); Glucose,Urine (UA) Normal (Normal); Ketones,Urine Negative (Negative); Leukocyte Esterase,Urine Negative (Negative); Nitrite,Urine Negative (Negative); PH,Urine 5.5 pH Units (5.0-8.0); Protein,Urine 100 mg/dL (Neg-Trace); Specific Gravity,Urine 1.025 (1.010-1.025); Urobilinogen,Urine Normal (Normal)
[2017-08-07 19:43] LABS: Hyaline Casts,Urine None Seen per lpf (None-Few); RBC,Urine 0-3 per hpf (0-3); Squamous Epithelial Cell,Urine Many per lpf (None-Few); WBC,Urine 0-3 per hpf (0-3)
[2017-08-07 20:03] LABS: Bacteria,Urine Few per hpf (None-Few); Yeast,Urine Few per hpf (None Seen)
[2017-08-07] MEDS ORDERED: 0.9 % Sodium Chloride 1,000 ML ONE (20:56)
[2017-08-07 21:58] LABS: HIV-1&2 Antibody & p24 Ag Nonreactive (Nonreactive)
[2017-08-08] MEDS: Dexamethasone 10 MG/ML VIAL IVP SCH (00:56)
[2017-08-08] MEDS: Clindamycin 900 MG/50 ML 900 MG/50 ML IV.SOLN IVPB SCH ×3 (00:56→19:50)
[2017-08-08] MEDS: *HR* FentaNYL (PF) 100 MCG/2 ML VIAL IVP PRN ×3 (03:29→20:20)
[2017-08-08 04:34] LABS: Hepatitis C Virus Antibody Nonreactive (Nonreactive)
[2017-08-08] MEDS: *HR* Heparin 5,000 UNIT/ML VIAL SQ SCH ×2 (05:05→19:51)
[2017-08-08 06:45] LABS: Hematocrit 32.9 % (37.5-50.1); Hemoglobin 11.2 g/dL (12.9-16.9); Mean Corpuscular Hemoglobin 30.3 pg (28.0-33.3); Mean Corpuscular Volume 88.9 fL (83.0-100.0); Mean Platelet Volume 11.3 fL (9.4-12.4); Platelet Count 209 K/mcL (140-400); Red Cell Distribution Width 14.3 % (11.5-14.5)
[2017-08-08 06:59] LABS: Calcium 8.2 mg/dL (8.6-10.3); Potassium 4.5 mEq/L (3.5-5.1)
[2017-08-08] MEDS ORDERED: Aminoglycoside Consult 1 EACH MC ONE (07:52)
--- NOTE | 2017-08-08 08:13 | Internal Med Progress Note ---
Date of Encounter: 08/08/17 Time of Encounter: 08:10 - Assessment and plan (1) Sepsis Current Visit: No Status: Acute Assessment and plan: sepsis 2ry to right peritonsillar abscess/Dima's angina s/p I and D Patient had symptoms of throat pain that started about 5 days ago. He went urgent care and was given Keflex ( took it for 1 1/2 days) for strep infection. Throat pain was progressively getting worse Face CT showed no acute traumatic injury of the facial bones, nasal bone deformity of indeterminate age present. Chronic pacification of the left frontal sinus with air fluid level in the left maxillary sinus. Right tonsillar enlargement was not well visualized. Soft tissue neck CT showed fullness of the right [place] tonsillar fossa, right pharyngeal wall extending into the hypopharynx, edematous changes in the right submandibular space. Chest x-ray was unremarkable. Upon arrival to the ED, patient had fever of 100.5, HR in 90s, 22% band neutrophils. Suspected source of infection: pharyngitis. Lactic acid 0.9 strep screen negative IVF clindamycin day 3 ( was going to receive Unasyn but apparently failed Kefflex Consider restarting vancomycin, ID consulted and recommending only clindamycin for now Decadron IV ENT following the case, CT of the head and neck with neck ultrasound were recommended, the patient will most likely go to the OR today CT of the neck with contrast in am IF renal function improves Qualifiers: Sepsis type: sepsis due to unspecified organism Qualified Code(s): A41.9 - Sepsis, unspecified organism (2) Tobacco abuse Current Visit: No Status: Chronic Assessment and plan: nicotine patch (3) Pharyngitis Current Visit: Yes Status: Acute Assessment and plan: Plan as above Qualifiers: Pharyngitis/tonsillitis etiology: unspecified etiology Qualified Code(s): J02.9 - Acute pharyngitis, unspecified (4) LESLIE (acute kidney injury) Current Visit: Yes Status: Acute Assessment and plan: Due to sepsis Suspect prerenal etiology secondary to dehydration in setting of poor oral intake plan: IV fluids continuously (5) Chest pain Current Visit: Yes Status: Acute Assessment and plan: Improving EKG unremarkable Qualifiers: Chest pain type: chest pain due to myocardial ischemia Ischemic chest pain type: unspecified angina pectoris type Qualified Code(s): I25.9 - Chronic ischemic heart disease, unspecified - Time Spent With Patient Total time spent is greater than 50% in coordination of care (as documented) at patient's floor/unit and/or counseling patient: - Subjective Interval history: The patient mentions he has not had any improvement on the pain over his neck and swallowing. No fevers, denies any chest pain or shortness of breath, no abdominal pain dysuria, no fevers, last fever recorded was on 08/06/2017 and it was 100.5 - Constitutional Vitals: Temp Pulse Resp BP Pulse Ox 98.8 F 85 16 103/52 96 08/08/17 06:27 08/08/17 06:27 08/08/17 06:27 08/08/17 06:27 08/08/17 06:27 General appearance: Present: A&O X 3, pleasant, severe distress (Secondary to throw pain. Patient is toxic appearing.) Exam: - Head Head exam: Present: atraumatic, normocephalic - Eye Eye exam: Present: PERRL, conjuntiva pink, sclera anicteric Pupils: Present: PERRL - Neck Neck exam general surgery: Present: supple, trachea midline. Absent: lymphadenopathy - Respiratory Respiratory exam: Present: CTAB. Absent: accessory muscle use, rales, rhonchi, wheezes - Cardiovascular Cardiovascular exam: Present: RRR, +S1, +S2. Absent: diastolic murmur, gallop, rubs, systolic murmur - GI/Abdominal GI/Abdominal exam: Present: normal bowel sounds, soft, no peritoneal signs. Absent: distended, tenderness - Extremities Exam Extremities exam: Present: warm, radial pulses palpable and symmetrical. Absent : calf tenderness, cyanotic, pedal edema - Neurological Exam Neurological exam: Present: CN II-XII intact, oriented X3, no focal deficits. Absent: pronater drift, facial droop, speech deficit - Expanded Neurological Exam Upper motor neuron: Robson neglect: Normal - Skin Skin exam: Present: dry, intact Additional comments: right tonsillar and peritonsillar erythema, tenderness, swelling Internal Medicine: Result - Labs CBC & Chem 7: 08/08/17 05:54 08/08/17 05:54 Labs: Short CBC 08/08/17 Range/Units 05:54 WBC 14.1 H D (4.3-11.1) K/mcL Hgb 11.2 L (12.9-16.9) g/dL Hct 32.9 L (37.5-50.1) % Plt Count 209 (140-400) K/mcL BMP 08/08/17 05:54 Sodium 136 Potassium 4.5 Chloride 110 H Carbon Dioxide 18 L BUN 55 H Creatinine 2.11 H Glucose 142 H Calcium 8.2 L Urine 08/07/17 Range/Units 16:25 Urine Color Yellow (Yellow) Urine Clarity Cloudy A (Clear) Urine pH 5.5 (5.0-8.0) pH Units Ur Specific [place] 1.025 (1.010-1.025) Urine Protein 100 H (Neg-Trace) mg/dL Urine Glucose (UA) Normal (Normal) mg/dL - ABG Interpretation ABG results: PT/INR, D-dimer PT 12.9 Seconds (9.4-12.1) H 08/06/17 20:44 - Impressions Impressions Retroperitoneum Ultrasound 08/07/17 15:00 IMPRESSION: No definite evidence of intrarenal stones or hydronephrosis. Severely distended bladder with extensive debris in the bladder and significant postvoid residual. Recommend correlation with urinalysis. This may represent cystitis/urinary tract infection. D/ / 08/07/2017 16:32:36 Raul Alvarenga MD / andrew Interpreting Provider: Raul Alvaernga MD Consult Discharge Plan - Plan Referrals: Salas Norman, JAVY [Primary Care Provider] -
--- NOTE | 2017-08-08 08:14 | ENT - Progress Note ---
Date of Encounter: 08/08/17 Time of Encounter: 08:11 - Assessment and Plan (1) Tonsillitis Current Visit: Yes Status: Acute (2) Peritonsillar abscess Current Visit: Yes Status: Acute Pt still with right neck and submental induration and trismus s/p bedside I&D of [employer]OX OFFICE AGENT yesterday WBC to 14 - infection vs marginalization Afebrile Current on Clindamycin Will plan for OR today for I&D neck abscess and peritonsillar abcess due to lack of improvement from bedside I&D yesterday Updated noncon CT neck and US today to help localize the abscess - unable to have contrast due to LESLIE Appreciate ID input - blood cultures pending Will obtain additional wound cultures today Subjective Narrative: Pt doing only slightly better today. Improved voice and marginal trismus improvement but still with significant cervical induration, odynophagia, and pain. Objective Initial Vital Signs Temp Pulse Resp BP Pulse Ox 100.5 F H 94 16 123/83 98 08/06/17 20:20 08/06/17 20:20 08/06/17 20:20 08/06/17 20:20 08/06/17 20:20 - General physical appearance well developed, well nourished - ENT Other (Trismus improved but still present. Site of I&D looks good without purulent drainage, still with left uvular deviation and right tonsillar bulging. Right neck with induration and submental fullness and TTP improved but still present. ) - Neck other (As above, right neck and submental induration) - Respiratory normal expansion, normal respiratory effort - Labs 08/08/17 05:54 08/08/17 05:54 Diabetes panel 08/08/17 Range/Units 05:54 Sodium 136 (136-145) mEq/L Potassium 4.5 (3.5-5.1) mEq/L Chloride 110 H (98-107) mEq/L Carbon Dioxide 18 L (23-29) mEq/L BUN 55 H (6-20) mg/dL Creatinine 2.11 H (0.70-1.30) mg/dL Glucose 142 H (70-105) mg/dL Calcium 8.2 L (8.6-10.3) mg/dL Calcium panel 08/08/17 Range/Units 05:54 Calcium 8.2 L (8.6-10.3) mg/dL Pituitary panel 08/08/17 Range/Units 05:54 Sodium 136 (136-145) mEq/L Potassium 4.5 (3.5-5.1) mEq/L Chloride 110 H (98-107) mEq/L Carbon Dioxide 18 L (23-29) mEq/L BUN 55 H (6-20) mg/dL Creatinine 2.11 H (0.70-1.30) mg/dL Glucose 142 H (70-105) mg/dL Calcium 8.2 L (8.6-10.3) mg/dL Adrenal panel 08/08/17 Range/Units 05:54 Sodium 136 (136-145) mEq/L Potassium 4.5 (3.5-5.1) mEq/L Chloride 110 H (98-107) mEq/L Carbon Dioxide 18 L (23-29) mEq/L BUN 55 H (6-20) mg/dL Creatinine 2.11 H (0.70-1.30) mg/dL Glucose 142 H (70-105) mg/dL Calcium 8.2 L (8.6-10.3) mg/dL Consult Discharge Plan - Plan Referrals: Salas Norman, OIL FIELD PUMPER [Primary Care Provider] -
[2017-08-08] MEDS: 0.9 % Sodium Chloride 1,000 ML IVC SCH ×2 (08:55→19:50)
[2017-08-08 09:22] LABS: Lymphocytes # 2.3 K/mcL (0.6-4.6); Monocytes # 0.6 K/mcL (0.0-1.3); Neutrophils # 11.3 K/mcL (1.6-8.9); Platelet Estimate Normal (Normal)
--- NOTE | 2017-08-08 10:13 | Infectious Disease Progress No ---
Date of Encounter: 08/08/17 Time of Encounter: 10:10 - Assessment and Plan (1) Sepsis Current Visit: No Status: Acute The patient had severe sepsis on admission with three SIRS criteria and LESLIE. Likely secondary to peritonsillar abscess. Improved. The patient has been afebrile. Tachycardia has improved. He now has leukocytosis and recurrence of bandemia. Blood cultures drawn x 2 sets 08/07/17 are pending. Qualifiers: Sepsis type: sepsis due to unspecified organism Qualified Code(s): A41.9 - Sepsis, unspecified organism (2) Peritonsillar abscess Current Visit: Yes Status: Acute Location: right tonsil. ENT consulted and following, concern for early peritonsillar abscess given the imaging findings. Plan for repeat imaging this morning and likely OR later today. Will await further recommendations from the ENT team. Per ENT, likely early peritonsillar abscess. Status post bedside I & D by Dr. Rodrigues 08/07/17. No cultures were obtained. Strep screen negative. Continue clindamycin 900mg IV Q8H. Start probiotics. Duration of treatment depends on the clinical picture. Monitor renal function and dose-adjust antibiotics. (3) LESLIE (acute kidney injury) Current Visit: Yes Status: Acute Etiology unclear: Post-infectious vs. prerenal vs. other. RP UTS showed no definite evidence of intrarenal stones or hydronephrosis, but did show evidence of extensive debris in the bladder and significant post-void residual. Improved. Continue to trend. Strict I's and O's. Avoid nephrotoxins. Dose-adjust antibiotics. Consider nephrology consult if fails to improve. (4) Dysuria Current Visit: No Status: Acute Etiology unclear. UA normal. Bo catheter placed for urinary retention, but patient refuses further testing if we don't take it out and states he will sign out AMA. Remove bo catheter and get PVR after the patient voids later today. Consider urology consult if urinary retention noted on PVR. (5) Chest pain Current Visit: Yes Status: Acute Etiology unclear. Troponins negative x 3. Further workup and management per the primary team. Qualifiers: Chest pain type: unspecified Qualified Code(s): R07.9 - Chest pain, unspecified (6) History of drug use Current Visit: Yes Status: Acute HIV and Hepatitis C antibody nonreactive. (7) Tobacco abuse Current Visit: No Status: Chronic - Subjective Interval history: Patient seen and examined. No acute events noted overnight. Patient resting quietly in bed upon my entrance into the room. Awakens easily to verbal stimuli. States he continues to have severe neck and throat pain. Reports continued fevers and chills and rigors. Continues to complain of chest pain, shortness of breath, cough. States he had some nausea with vomiting of clear phlegm overnight. Complains of abdominal pain. States he wants his Bo catheter removed and he is not agreeable to further testing until it is taken out. Continues to complain of midthoracic back pain with radiation to the lumbar spine. States he has not had anything to eat in 6 days. States he wants to sign out AMA. Advised him of the risks of doing so and that he will likely end up more sick and would likely have to come back to the hospital states that he refuses to come back here if he signs out AMA and he would never come back here because he is not happy with the effort we have put into getting his pain under control. Infect Dis PN-Objective Data - Labs CBC & Chem 7: 08/08/17 05:54 08/08/17 05:54 Labs: Laboratory Results - last 24 hr 08/07/17 08/07/17 08/08/17 16:25 16:43 05:54 WBC 14.1 H D RBC 3.70 L Hgb 11.2 L Hct 32.9 L MCV 88.9 MCH 30.3 MCHC 34.0 RDW 14.3 Plt Count 209 MPV 11.3 Seg Neutrophils % 66.0 Band Neutrophils % 14.0 H Lymphocytes % 16.0 Monocytes % 4.0 Neutrophils # 11.3 H Lymphocytes # 2.3 Monocytes # 0.6 Platelet Estimate Normal Sodium Potassium Chloride Carbon Dioxide BUN Creatinine Est GFR ( Amer) Est GFR (Non-Af Amer) BUN/Creatinine Ratio Glucose Calculated Osmolality Calcium Urine Color Yellow Urine Clarity Cloudy A Urine pH 5.5 Ur Specific [place] 1.025 Urine Protein 100 H Urine Glucose (UA) Normal Urine Ketones Negative Urine Blood Negative Urine Nitrite Negative Urine Bilirubin Negative Urine Urobilinogen Normal Ur Leukocyte Esterase Negative Urine Microscopic RBC 0-3 Urine Microscopic WBC 0-3 Ur Squamous Epith Cells Many H Urine Bacteria Few Hyaline Casts None Seen Urine Yeast Few H Hepatitis C Ab Screen Nonreactive HIV Ag/Ab Combo Qual Nonreactive 08/08/17 05:54 WBC RBC Hgb Hct MCV MCH MCHC RDW Plt Count MPV Seg Neutrophils % Band Neutrophils % Lymphocytes % Monocytes % Neutrophils # Lymphocytes # Monocytes # Platelet Estimate Sodium 136 Potassium 4.5 Chloride 110 H Carbon Dioxide 18 L BUN 55 H Creatinine 2.11 H Est GFR ( Amer) 41 L Est GFR (Non-Af Amer) 33 L BUN/Creatinine Ratio 26 Glucose 142 H Calculated Osmolality 300 Calcium 8.2 L Urine Color Urine Clarity Urine pH Ur Specific [place] Urine Protein Urine Glucose (UA) Urine Ketones Urine Blood Urine Nitrite Urine Bilirubin Urine Urobilinogen Ur Leukocyte Esterase Urine Microscopic RBC Urine Microscopic WBC Ur Squamous Epith Cells Urine Bacteria Hyaline Casts Urine Yeast Hepatitis C Ab Screen HIV Ag/Ab Combo Qual Cultures: Serology 08/07/17 08/07/17 08/07/17 Range/Units 16:43 16:25 03:25 Urine Color Yellow (Yellow) Urine Clarity Cloudy A (Clear) Urine pH 5.5 (5.0-8.0) pH Units Ur Specific [place] 1.025 (1.010-1.025) Urine Protein 100 H (Neg-Trace) mg/dL Urine Glucose (UA) Normal (Normal) mg/dL Urine Ketones Negative (Negative) mg/dL Urine Blood Negative (Negative) Urine Nitrite Negative (Negative) Urine Bilirubin Negative (Negative) Urine Urobilinogen Normal (Normal) mg/dL Ur Leukocyte Esterase Negative (Negative) Urine Microscopic RBC 0-3 (0-3) per hpf Urine Microscopic WBC 0-3 (0-3) per hpf Ur Squamous Epith Cells Many H (None-Few) per lpf Urine Bacteria Few (None-Few) per hpf Hyaline Casts None Seen (None-Few) per lpf Urine Yeast Few H (None Seen) per hpf Urine Creatinine 136 mg/dL Urine Sodium 54.4 mEq/L Hepatitis C Ab Screen Nonreactive (Nonreactive) HIV Ag/Ab Combo Qual Nonreactive (Nonreactive) 08/07/17 Range/Units 03:25 Urine Color Dark Yellow (Yellow) Urine Clarity Clear (Clear) Urine pH 5.5 (5.0-8.0) pH Units Ur Specific [place] 1.021 (1.010-1.025) Urine Protein 100 H (Neg-Trace) mg/dL Urine Glucose (UA) Normal (Normal) mg/dL Urine Ketones Negative (Negative) mg/dL Urine Blood Negative (Negative) Urine Nitrite Negative (Negative) Urine Bilirubin Negative (Negative) Urine Urobilinogen Normal (Normal) mg/dL Ur Leukocyte Esterase Negative (Negative) Urine Microscopic RBC (0-3) per hpf Urine Microscopic WBC (0-3) per hpf Ur Squamous Epith Cells (None-Few) per lpf Urine Bacteria (None-Few) per hpf Hyaline Casts (None-Few) per lpf Urine Yeast (None Seen) per hpf Urine Creatinine mg/dL Urine Sodium mEq/L Hepatitis C Ab Screen (Nonreactive) HIV Ag/Ab Combo Qual (Nonreactive) - Impressions Impressions Retroperitoneum Ultrasound 08/07/17 15:00 IMPRESSION: No definite evidence of intrarenal stones or hydronephrosis. Severely distended bladder with extensive debris in the bladder and significant postvoid residual. Recommend correlation with urinalysis. This may represent cystitis/urinary tract infection. D/ / 08/07/2017 16:32:36 Raul Alvarenga MD / [email or web address] Interpreting Provider: Raul Alvarenga MD Head CT 08/08/17 08:06 IMPRESSION: 1. No acute intracranial abnormality. 2. Left frontal, maxillary and ethmoid sinus disease. D/ / Merrick Florence MD / Merrick Florence MD Interpreting Provider: Merrick Florence MD Soft Tissue Neck CT 08/08/17 08:06 IMPRESSION: Suboptimal evaluation without intravenous contrast. Persistent enlargement of the right palatine tonsil, consistent with tonsillitis. There is edema of the right parapharyngeal fat. Fullness of the right nasopharynx and edema of the epiglottis, aryepiglottic forms, and piriform sinuses has progressed since the prior examination. Worsening fluid attenuation in the submandibular region, with new areas of hypoattenuation in the left submandibular gland and surrounding the right submandibular gland. Findings may reflect worsening phlegmon or developing abscess. New fluid attenuation area adjacent to the right carotid sheath may reflect phlegmon or developing abscess. Bilateral reactive cervical adenopathy. The findings were sent to the [facility]iology Results [facility] at 10:03 am on 08/08/2017to be communicated to a licensed caregiver. D/ / 08/08/2017 10:07:47 Pablo Holley MD / melvin Interpreting Provider: Pablo Holley MD Exam - Constitutional Vitals: Temp Pulse Resp BP Pulse Ox 98.8 F 85 16 103/52 96 08/08/17 06:27 08/08/17 06:27 08/08/17 06:27 08/08/17 06:27 08/08/17 06:27 General appearance: cooperative, no acute distress, thin - Head Head exam: Present: atraumatic, normal inspection, normocephalic - Eye Eye exam: Present: EOMI, normal appearance Pupils: Present: normal accommodation, PERRL - ENT ENT exam: Present: mucous membranes moist Additional comments: LArge amount of clear phlegm noted in the oral cavity. Unable to visualize the posterior pharynx due to limited ROM of the jaw. - Neck Neck exam: Absent: normal inspection (Mild erythema persists to the anterior, right lateral, and right posterolateral aspects.) - Respiratory Respiratory exam: Present: CTAB. Absent: rales, respiratory distress, rhonchi, wheezes - Cardiovascular Cardiovascular exam: Present: RRR, +S1, +S2 - GI/Abdominal GI/Abdominal exam: Present: normal bowel sounds, soft, tenderness (generalized) . Absent: distended - Extremities Exam Extremities exam: Present: normal inspection. Absent: pedal edema - Back Exam Back exam: Present: CVA tenderness (L), CVA tenderness (R), paraspinal tenderness (Lumbar) - Neurological Exam Neurological exam: Present: alert, oriented X3, no focal deficits - Psychiatric Psychiatric exam: Present: agitated, normal affect - Skin Skin exam: Present: dry, intact, normal color - Additional findings Additional findings: Bo catheter noted with clear yellow urine noted. Consult Discharge Plan - Plan Referrals: Salas Norman INDUCTION BRAZER [Primary Care Provider] - - Attending Attestation I examined this patient and my medical decision-making was reviewed with the Resident Physician. I agree with the documented findings, disposition and treatment plan as described except to the extent set forth below.
[2017-08-08] MEDS: OXYCODONE Oral CONC 10 MG/0.5 ML ORAL.SYG SL PRN ×2 (12:21→21:29)
[2017-08-08] MEDS ORDERED: *HR* Propofol 200 MG/20 ML VIAL IVP ONE (15:54)
[2017-08-08] MEDS ORDERED: Dexamethasone 4 MG/ML VIAL ONE ×2 (15:54→17:28)
[2017-08-08] MEDS ORDERED: *HR* FentaNYL (PF) 100 MCG/2 ML VIAL ONE ×2 (15:54→16:45)
[2017-08-08] MEDS ORDERED: *HR* Midazolam HCl 2 MG/2 ML VIAL ONE (15:54)
[2017-08-08] MEDS ORDERED: Ondansetron 4 MG/2 ML VIAL ONE (15:54)
[2017-08-08] MEDS ORDERED: Lidocaine -MPF 2% 2 ML VIAL ONE (15:54)
[2017-08-08] MEDS ORDERED: Albuterol 2.5 MG/3 ML NEBULIZER IH ONE ×2 (15:59→16:53)
[2017-08-08] MEDS ORDERED: Famotidine 20 MG/2 ML VIAL IVP ONE (16:00)
[2017-08-08] MEDS ORDERED: Acetaminophen IV 1,000 MG/100 ML INFUS..BTL IVPB ONE (16:00)
--- NOTE | 2017-08-08 16:10 | Anesthesia Evaluation PreOp ---
Date of Encounter: 08/08/17 Time of Encounter: 16:15 - Past History Planned Operation: I & D Neck Abscess Cardiac History: Denies any Significant Hx Pulmonary History: Smoker, COPD SUGAR BOILER History: Denies Any Significant HX Other Medical History: GERD Anesthesia History: No Prior Anesthetic Complications Alcohol Use: none Drug use: none Medications and Allergies No Known Home Drugs 08/06/17 [History] 3 Allergy/AdvReac Type Severity Reaction Status Date / Time gabapentin [From Neurontin] AdvReac Nausea Verified 08/06/17 21:48 pregabalin [From Lyrica] AdvReac Nausea Verified 08/06/17 21:48 - Meds/Allergy Pre-op Review Medications Reviewed: Yes Allergies Reviewed: Yes Beta Blockers on Current Med List: No Anesthesia Results - Labs 08/08/17 05:54 08/08/17 05:54 - Imaging EKG: report reviewed (SR) Anesthesia Exam O2 Sat Weight 64.4 kg O2 Sat by Pulse Oximetry 96 O2 Sat by Pulse Oximetry 95 O2 Sat by Pulse Oximetry 96 O2 Sat by Pulse Oximetry 97 O2 Sat by Pulse Oximetry 98 O2 Sat by Pulse Oximetry 97 Vital Signs Temp Pulse Resp BP Pulse Ox 100.5 F H 94 16 123/83 98 08/06/17 20:20 08/06/17 20:20 08/06/17 20:20 08/06/17 20:20 08/06/17 20:20 Height: 5'8 Weight: 141 lbs NPO (# of Hours): MN Pain Scale: 0 - HEENT Pupil (Motor): Pupils equal, EOMI Mallampati: II Teeth: Normal Oral Opening: Greater than 3 - SUGAR BOILER LOC: Oriented SUGAR BOILER Motor: Normal RUE, Normal LUE, Normal RLE, Normal LLE, Normal Face SUGAR BOILER Sensory: Normal: RUE, LUE, RLE, LLE, Face - Cardiac Rhythm: Regular Murmur: None JVD: No Carotid Bruit: No - Pulmonary Breath Sounds: bilateral Clear Respiratory Effort: Symmetrical Anesthesia Assess/Plan ASA Score: 3 (COPD) Modified [place] Scale for Level of Consciousness: Cooperative, oriented, and tranquil Anesthetic Plan: General Monitoring Plan: Standard Monitors Recovery Plan: PACU (Discussed GA, agrees to proceed)
[2017-08-08] MEDS ORDERED: Famotidine 20 MG/2 ML VIAL ONE (16:17)
[2017-08-08] MEDS ORDERED: Acetaminophen IV 1,000 MG/100 ML INFUS..BTL ONE (16:17)
[2017-08-08] MEDS ORDERED: Ondansetron 4 MG/2 ML VIAL IVP ONE (16:53)
[2017-08-08] MEDS ORDERED: *HR* Meperidine 25 MG/ML SYRINGE IVP PRN (16:53)
[2017-08-08] MEDS ORDERED: *HR* Morphine 2 MG/ML SYRINGE IVP PRN (16:53)
--- NOTE | 2017-08-08 17:40 | Operative Note ---
Date of procedure: 08/08/17 Pre-op diagnosis: right peritonsillar abscess, right neck abscess, submental abscess Post-op diagnosis: same Procedure: 1. I&D right peritonsillar abscess 2. I&D right neck abscess 3 I&D submental abscess Complications: none Anesthesia: GETA Surgeon: Jt Rodrigues Was there an bus assistant present: No Estimated blood loss (cc): 10 Specimen: cultures Condition: stable Disposition: floor Procedure in Detail: Indications: Patient is a 52-year-old male admitted to [facility] with a right peritonsillar abscess and right neck abscess. He underwent IV therapies and upset side incision and drainage yesterday with continued pain and increase in his right neck abscess induration. Repeat CT scan did reveal increased fluid collections in the area tonsillar space and neck including the submental space. This was a noncontrast CT so it was correlated with a neck ultrasound as well. Decision for a trip to the operating room for formal incision and drainage of the above-mentioned abscesses was made. Risks benefits and alternatives were explained to the patient in detail. I discussed the risk of neurovascular injury in the neck including risk to the marginal mandibular nerve as my primary concern.. He elected to proceed with surgery and a consent form was signed. Procedure in detail: The patient was brought down to the operating room and placed in the supine position on the OR table and placed under general anesthesia via endotracheal intubation. Timeout was performed to identify the correct patient and procedure the head of bed was turned 90 degrees he was prepped and draped in a sterile fashion for the right neck portion of the case. Incisions were planned out in the right level II area as well as the submental space and these incisions were injected with 1% lidocaine with 1 100, 000 epinephrine. A 15 blade scalpel was used to make an incision in the right neck inferior to the angle of the mandible. Careful dissection continued through the subcutaneous tissue and platysma musculature. Once subplatysmal a hemostat was used to carefully dissect into the abscess area and birgit purulence was encountered which flowed freely from the neck and was cultured. Multiple areas of dissection occurred to open up all loculations, there were many. There was no necrotic tissue encountered. Once that was sufficient the wound was irrigated copiously with saline and suctioned completely dry. A Ti drain was placed into the neck into the wound and sutured in place with a nylon suture. The wound was loosely closed with interrupted nylon sutures. Attention was then taken to the submental abscess. A 15 blade scalpel was used to make an incision through the skin and subcutaneous tissues. Section continued with a hemostat forcep breaking into the area of edema and induration. There was turbid fluid but no birgit purulence that drained from this area. A Ida drain was placed into this wound and sutured in place with a nylon stitch. The wound was loosely closed with a nylon suture as well. Attention was then taken to the mouth a Bitex.la mouth gag was placed into the mouth and put on suspension. Was a large amount of purulence in the mouth mixed with blood clot upon initial inspection. I suspect this was expressed from my site of prior incision and drainage. The mouth was suctioned free and irrigated well. No other areas of abscess were identified. Dissection with a Metzenbaum scissor was done through the site of prior I and D which I opened up further. That wound was also irrigated copiously with saline. It was left open once bleeding subsided. A pressure dressing was then placed over the neck incisions and that was the end of the case. The patient was handed back over to anesthesia to recover he was woken up, endotracheal tube was removed, he was transferred to PACU in stable condition and then transferred back to the floor for continued medical care. He received 20 mg of IV Decadron intraoperatively.
--- NOTE | 2017-08-08 18:43 | Anesthesia Evaluation Post Op ---
Date of Encounter: 08/08/17 Time of Encounter: 18:50 - Vital Signs Vital Signs: Vital Signs/O2 Sat/Glucose, Most Current Temp Pulse Resp BP Pulse Ox 08/08/17 18:40 65 16 126/71 93 08/08/17 18:30 89 16 123/75 95 08/08/17 18:20 99.5 F 86 16 140/83 94 08/08/17 18:10 79 16 128/85 95 08/08/17 18:00 96 16 129/94 95 08/08/17 17:50 97.2 F L 80 16 126/88 95 08/08/17 15:35 98.1 F 57 14 113/69 96 - Lungs Lungs: Clear Ascult./Percussion - Airway Airway: Non-obstructed - Cardiovascular Regular Rate - Mental Status Mental Status: Alert & Oriented, Answers Appropriately - Pain Pain Scale: 1 - Nausea Vomiting Nausea Vomiting: Not Present - Hydration Hydration: Ice chips - Discharge PostOp Status: Transfer Patient to floor
[2017-08-08] MEDS: Ringers Solution, Lactated 1,000 ML IVC SCH (19:43)
[2017-08-09] MEDS: Ondansetron 4 MG/2 ML VIAL IVP PRN (00:46)
[2017-08-09] MEDS: 0.9 % Sodium Chloride 1,000 ML IVC SCH ×3 (01:13→18:20)
[2017-08-09] MEDS: *HR* FentaNYL (PF) 100 MCG/2 ML VIAL IVP PRN (02:20)
[2017-08-09] MEDS: Clindamycin 900 MG/50 ML 900 MG/50 ML IV.SOLN IVPB SCH ×3 (03:00→18:19)
[2017-08-09] MEDS: *HR* Heparin 5,000 UNIT/ML VIAL SQ SCH ×2 (05:57→18:19)
[2017-08-09] MEDS: OXYCODONE Oral CONC 10 MG/0.5 ML ORAL.SYG SL PRN ×3 (06:01→19:51)
[2017-08-09 06:30] LABS: Hematocrit 30.4 % (37.5-50.1); Hemoglobin 10.3 g/dL (12.9-16.9); Immature Platelets 5.4 % (1.1-6.1); Mean Corpuscular HGB Conc 33.9 g/dL (31.6-35.5); Mean Corpuscular Volume 88.6 fL (83.0-100.0); Mean Platelet Volume 11.5 fL (9.4-12.4); Platelet Count 220 K/mcL (140-400); Red Blood Count 3.43 M/mcL (4.19-5.50); Red Cell Distribution Width 14.6 % (11.5-14.5)
[2017-08-09 06:45] LABS: Calcium 7.8 mg/dL (8.6-10.3); Potassium 4.1 mEq/L (3.5-5.1)
[2017-08-09] MEDS: Acetaminophen 325 MG TABLET PO PRN (08:10)
[2017-08-09] MEDS: Chloraseptic Spray 177 ML BOTTLE MM PRN (08:10)
--- NOTE | 2017-08-09 08:10 | ENT - Progress Note ---
Date of Encounter: 08/09/17 Time of Encounter: 08:08 - Assessment and Plan (1) Tonsillitis Current Visit: Yes Status: Acute (2) Peritonsillar abscess Current Visit: Yes Status: Acute s/p I&D in OR of right peritonsillar abscess, right neck abscess, and submental abscess POD#1 -Improved today from standpoint of pain, neck ROM, and trismus -Still with TTP and brown thin purulent drainage from neck drains -WBC 9<--14, afebrile, VSS -IV Clindamycin 900mg q8h currently. Cultures pending. Appreciate ID input -Recommend compression dressing changes as needed -Drain x2 in neck, will pull once purulent drainage ceases. -Pain and nausea control. Would do well with NSAID but cant due to LESLIE. -He asks for Phenergan for nausea instead of Zofran -Recommend Peridex oral mouth rinses 5ml qid (3) LESLIE (acute kidney injury) Current Visit: Yes Status: Acute Improving Continue IVF Subjective Patient reports: no new complaints (Feeling better today, less pain and neck tightness. Still TTP. Improving trismus. Able to tolerated soft diet last night. More alert) Objective Initial Vital Signs Temp Pulse Resp BP Pulse Ox 100.5 F H 94 16 123/83 98 08/06/17 20:20 08/06/17 20:20 08/06/17 20:20 08/06/17 20:20 08/06/17 20:20 - General physical appearance well developed, well nourished, no distress - Eyes normal ocular movement - ENT normal pinna, normal nares, Other (Right tonsillar bulging improving, no purulence noted from soft palate incision. No blood in OP. ) - Neck other (right drain in place with brown purulent thin fluid draining. submental drain in place with less drainage. Dressings changed.) - Respiratory normal expansion, normal respiratory effort - Psychiatric oriented to time, oriented to person, oriented to place - Labs 08/09/17 04:42 08/09/17 04:42 Diabetes panel 08/09/17 Range/Units 04:42 Sodium 139 (136-145) mEq/L Potassium 4.1 (3.5-5.1) mEq/L Chloride 109 H (98-107) mEq/L Carbon Dioxide 19 L (23-29) mEq/L BUN 49 H (6-20) mg/dL Creatinine 1.62 H (0.70-1.30) mg/dL Glucose 149 H (70-105) mg/dL Calcium 7.8 L (8.6-10.3) mg/dL Calcium panel 08/09/17 Range/Units 04:42 Calcium 7.8 L (8.6-10.3) mg/dL Pituitary panel 08/09/17 Range/Units 04:42 Sodium 139 (136-145) mEq/L Potassium 4.1 (3.5-5.1) mEq/L Chloride 109 H (98-107) mEq/L Carbon Dioxide 19 L (23-29) mEq/L BUN 49 H (6-20) mg/dL Creatinine 1.62 H (0.70-1.30) mg/dL Glucose 149 H (70-105) mg/dL Calcium 7.8 L (8.6-10.3) mg/dL Adrenal panel 08/09/17 Range/Units 04:42 Sodium 139 (136-145) mEq/L Potassium 4.1 (3.5-5.1) mEq/L Chloride 109 H (98-107) mEq/L Carbon Dioxide 19 L (23-29) mEq/L BUN 49 H (6-20) mg/dL Creatinine 1.62 H (0.70-1.30) mg/dL Glucose 149 H (70-105) mg/dL Calcium 7.8 L (8.6-10.3) mg/dL - VTE Documentation of Mechanical Device: Intermittent pneumatic compression device Consult Discharge Plan - Plan Referrals: Salas Norman CNP [Primary Care Provider] -
[2017-08-09] MEDS ORDERED: Ketorolac 15 MG/ML VIAL IVP PRN (08:17)
--- NOTE | 2017-08-09 08:23 | Internal Med Progress Note ---
Date of Encounter: 08/09/17 Time of Encounter: 08:21 - Assessment and plan (1) Sepsis Current Visit: No Status: Acute Assessment and plan: sepsis 2ry to right peritonsillar, right neck and submental abscesses /Dima's angina s/p I and D POD #1 Patient had symptoms of throat pain that started about 5 days ago. He went urgent care and was given Keflex ( took it for 1 1/2 days) for strep infection. Throat pain was progressively getting worse Face CT showed no acute traumatic injury of the facial bones, nasal bone deformity of indeterminate age present. Chronic pacification of the left frontal sinus with air fluid level in the left maxillary sinus. Right tonsillar enlargement was not well visualized. Soft tissue neck CT showed fullness of the right [place] tonsillar fossa, right pharyngeal wall extending into the hypopharynx, edematous changes in the right submandibular space. Chest x-ray was unremarkable. had fever of 100.5, HR in 90s, 22% band neutrophils. strep screen negative IVF clindamycin day 4 ( was going to receive Unasyn but apparently failed Kefflex ID consulted and recommending only clindamycin for now Stopped Decadron IV 2nd CT of the head and neck showed: Persistent enlargement of the right palatine tonsil, consistent with tonsillitis. There is edema of the right parapharyngeal fat. Fullness of the right nasopharynx and edema of the epiglottis, aryepiglottic forms, and piriform sinuses has progressed since the prior examination. Worsening fluid attenuation in the submandibular region, with new areas of hypoattenuation in the left submandibular gland and surrounding the right submandibular gland. Findings may reflect worsening phlegmon or developing abscess. New fluid attenuation area adjacent to the right carotid sheath may reflect phlegmon or developing abscess. Neck ultrasound showed : 3.4 cm complex and heterogeneous lesion in the right upper neck which is indeterminate and could be compatible with given history of peritonsillar abscess or could represent a salivary gland. Several lesions in the left upper neck likely represent borderline enlarged lymph nodes. Qualifiers: Sepsis type: sepsis due to unspecified organism Qualified Code(s): A41.9 - Sepsis, unspecified organism (2) Tobacco abuse Current Visit: No Status: Chronic Assessment and plan: nicotine patch (3) Pharyngitis Current Visit: Yes Status: Acute Assessment and plan: Plan as above Qualifiers: Pharyngitis/tonsillitis etiology: unspecified etiology Qualified Code(s): J02.9 - Acute pharyngitis, unspecified (4) LESLIE (acute kidney injury) Current Visit: Yes Status: Acute Assessment and plan: Due to sepsis Suspect prerenal etiology secondary to dehydration in setting of poor oral intake IV fluids, ok to use toradol (5) Chest pain Current Visit: Yes Status: Acute Qualifiers: Chest pain type: chest pain due to myocardial ischemia Ischemic chest pain type: unspecified angina pectoris type Qualified Code(s): I25.9 - Chronic ischemic heart disease, unspecified - Time Spent With Patient Total time spent is greater than 50% in coordination of care (as documented) at patient's floor/unit and/or counseling patient: - Subjective Interval history: Feels less pressure, still having pain over his neck and while swallowing. No fevers, denies any chest pain or shortness of breath, no abdominal pain dysuria , no fevers, last fever recorded was on 08/06/2017 and it was 100.5 - Constitutional Vitals: Temp Pulse Resp BP Pulse Ox 98.6 F 68 14 113/65 96 08/09/17 06:34 08/09/17 06:34 08/09/17 06:34 08/09/17 06:34 08/09/17 06:34 General appearance: Present: A&O X 3, pleasant, severe distress (Secondary to throw pain. Patient is toxic appearing.) Exam: - Head Head exam: Present: atraumatic, normocephalic - Eye Eye exam: Present: PERRL, conjuntiva pink, sclera anicteric Pupils: Present: PERRL - Neck Neck exam general surgery: Present: supple, trachea midline. Absent: lymphadenopathy - Respiratory Respiratory exam: Present: CTAB. Absent: accessory muscle use, rales, rhonchi, wheezes - Cardiovascular Cardiovascular exam: Present: RRR, +S1, +S2. Absent: diastolic murmur, gallop, rubs, systolic murmur - GI/Abdominal GI/Abdominal exam: Present: normal bowel sounds, soft, no peritoneal signs. Absent: distended, tenderness - Extremities Exam Extremities exam: Present: warm, radial pulses palpable and symmetrical. Absent : calf tenderness, cyanotic, pedal edema - Neurological Exam Neurological exam: Present: CN II-XII intact, oriented X3, no focal deficits. Absent: pronater drift, facial droop, speech deficit - Expanded Neurological Exam Upper motor neuron: Robson neglect: Normal - Skin Skin exam: Present: dry, intact Additional comments: right neck drain, right submental drain, peritonsillar tenderness and swelling have improved Internal Medicine: Result - Labs CBC & Chem 7: 08/09/17 04:42 08/09/17 04:42 Labs: Short CBC 08/08/17 08/09/17 Range/Units 05:54 04:42 WBC 14.1 H D 9.9 (4.3-11.1) K/mcL Hgb 11.2 L 10.3 L (12.9-16.9) g/dL Hct 32.9 L 30.4 L (37.5-50.1) % Plt Count 209 220 (140-400) K/mcL Neutrophils # 11.3 H (1.6-8.9) K/mcL BMP 08/09/17 04:42 Sodium 139 Potassium 4.1 Chloride 109 H Carbon Dioxide 19 L BUN 49 H Creatinine 1.62 H Glucose 149 H Calcium 7.8 L - ABG Interpretation ABG results: PT/INR, D-dimer PT 12.9 Seconds (9.4-12.1) H 08/06/17 20:44 - Impressions Impressions Head CT 08/08/17 08:06 IMPRESSION: 1. No acute intracranial abnormality. 2. Left frontal, maxillary and ethmoid sinus disease. D/ / Merrick Florence MD / Merrick Florence MD Interpreting Provider: Merrick Florence MD Soft Tissue Neck CT 08/08/17 08:06 IMPRESSION: Suboptimal evaluation without intravenous contrast. Persistent enlargement of the right palatine tonsil, consistent with tonsillitis. There is edema of the right parapharyngeal fat. Fullness of the right nasopharynx and edema of the epiglottis, aryepiglottic forms, and piriform sinuses has progressed since the prior examination. Worsening fluid attenuation in the submandibular region, with new areas of hypoattenuation in the left submandibular gland and surrounding the right submandibular gland. Findings may reflect worsening phlegmon or developing abscess. New fluid attenuation area adjacent to the right carotid sheath may reflect phlegmon or developing abscess. Bilateral reactive cervical adenopathy. The findings were sent to the [facility] at 10:03 am on 08/08/2017to be communicated to a licensed caregiver. D/ / 08/08/2017 10:07:47 Pablo Holley MD / melvin Interpreting Provider: Pablo Holley MD Head/Neck Ultrasound 08/08/17 10:00 IMPRESSION: 3.4 cm complex and heterogeneous lesion in the right upper neck which is indeterminate and could be compatible with given history of peritonsillar abscess or could represent a salivary gland. Several lesions in the left upper neck likely represent borderline enlarged lymph nodes. D/ / Alber Oliver MD / Alber Oliver MD Interpreting Provider: Alber Oliver MD - VTE Documentation of Mechanical Device: Intermittent pneumatic compression device Consult Discharge Plan - Plan Referrals: Salas Norman, L[employer]IST [Primary Care Provider] -
--- NOTE | 2017-08-09 10:36 | Infectious Disease Progress No ---
Date of Encounter: 08/09/17 Time of Encounter: 10:34 - Assessment and Plan (1) Sepsis Current Visit: No Status: Acute The patient had severe sepsis on admission with three SIRS criteria and LESLIE. Likely secondary to peritonsillar abscess, right neck abscess, and submental abscess. Improved. The patient has been afebrile. Tachycardia has improved. Leukocytosis has resolved, but no differential done on the CBC to assess his bandemia. Blood cultures drawn x 2 sets 08/07/17 are NGTD. Add differential to CBC. Qualifiers: Sepsis type: sepsis due to unspecified organism Qualified Code(s): A41.9 - Sepsis, unspecified organism (2) Peritonsillar abscess Current Visit: Yes Status: Acute Location: right tonsil. ENT consulted and following, concern for early peritonsillar abscess given the imaging findings. Per ENT, likely early peritonsillar abscess. Status post bedside I & D by Dr. Rodrigues 08/07/17. No cultures were obtained. Repeat CT of the head and neck 08/08/17 showed left frontal, maxillary, and ethmoid sinusitis and persistent enlargement of the right palatine tonsil consistent with tonsillitis. It also showed edema in the right parapharyngeal fat and fullness of the right nasopharynx and edema of the epiglottis, aryepiglottic forms, and piriform sinuses, worse since prior examination. Worsening fluid attenuation in the submandibular region with new areas of hypoattenuation in the left submandibular gland and surrounding the right submandibular gland noted, concerning for worsening phlegmon or abscess. There was also noted to be new fluid attenuation area adjacent to the right carotid sheath, reflective of phlegmon or developing abscess. UTS of the head/neck 08/08/17 showed a 3.4cm complex and heterogenous lesion in the right upper neck, indeterminate etiology, but could be compatible with peritonsillar abscess vs. salivary gland. Status post I & D right peritonsillar, submental, and right neck abscesses by Dr. Rodrigues. Operative note reviewed. Gross purulence noted intra-op. Cultures are pending. Gram stain positive for many GPC and many GNDP. Discussed with micro re: GNDP. They re-checked the gram stain and states it looks anaerobic. No precautions required at this time, but will start Rocephin empirically. Strep screen negative. Start Rocephin 2 grams IV daily. Continue clindamycin 900mg IV Q8H. Start probiotics. Duration of treatment depends on the clinical picture. Monitor renal function and dose-adjust antibiotics. (3) Neck abscess Current Visit: Yes Status: Acute Location: Right neck. Status post operative I & D 08/08/[address] Rodrigues. Causative organism unclear. Cultures are pending. Continue antibiotics as above. (4) Submental abscess Current Visit: Yes Status: Acute Location: Right neck. Status post operative I & D 08/08/[address] Rodrigues. Causative organism unclear. Cultures are pending. Continue antibiotics as above. (5) Sinusitis Current Visit: Yes Status: Acute Location: Left ethmoid, frontal, and maxillary per CT head. Causative organism unclear. Continue antibiotics as above. Qualifiers: Sinusitis location: unspecified location Chronicity: acute Recurrence: non-recurrent Qualified Code(s): J01.90 - Acute sinusitis, unspecified (6) LESLIE (acute kidney injury) Current Visit: Yes Status: Acute Etiology unclear: Post-infectious vs. prerenal vs. post-obstructive vs. other. RP UTS showed no definite evidence of intrarenal stones or hydronephrosis, but did show evidence of extensive debris in the bladder and significant post-void residual. Improved. Continue to trend. Strict I's and O's. Avoid nephrotoxins. Dose-adjust antibiotics. (7) Dysuria Current Visit: No Status: Acute Etiology unclear. UA normal. Emery catheter placed for urinary retention, but removed per patient's request. PVR ~200. Consider urology consult as outpatient. (8) Chest pain Current Visit: Yes Status: Acute Etiology unclear. Troponins negative x 3. Further workup and management per the primary team. Qualifiers: Chest pain type: unspecified Qualified Code(s): R07.9 - Chest pain, unspecified (9) History of drug use Current Visit: Yes Status: Acute HIV and Hepatitis C antibody nonreactive. (10) Tobacco abuse Current Visit: No Status: Chronic - Subjective Interval history: Patient seen and examined sitting up in bed, playing on phone. No acute events noted overnight. States he's having a "bad day." States he continues to have severe neck and throat pain. Reports continued fevers, but denies chills and rigors. Denies chest pain, shortness of breath, or cough. Denies nausea or vomiting and was able to eat some cereal this morning. Complains of abdominal pain. States he continues to have dysuria and lower back pain. Denies oral thrush or new skin lesions. Infect Dis PN-Objective Data - Labs CBC & Chem 7: 08/09/17 04:42 08/09/17 04:42 Labs: Laboratory Results - last 24 hr 08/07/17 08/07/17 08/07/17 11:51 17:10 23:26 WBC RBC Hgb Hct MCV MCH MCHC RDW Plt Count MPV Immature Plt Fraction Sodium Potassium Chloride Carbon Dioxide BUN Creatinine Est GFR ( Amer) Est GFR (Non-Af Amer) BUN/Creatinine Ratio Glucose POC Glucose 159 H 124 H 167 H Calculated Osmolality Calcium 08/08/17 08/08/17 08/09/17 05:20 11:28 04:42 WBC 9.9 RBC 3.43 L Hgb 10.3 L Hct 30.4 L MCV 88.6 MCH 30.0 MCHC 33.9 RDW 14.6 H Plt Count 220 MPV 11.5 Immature Plt Fraction 5.4 Sodium Potassium Chloride Carbon Dioxide BUN Creatinine Est GFR ( Amer) Est GFR (Non-Af Amer) BUN/Creatinine Ratio Glucose POC Glucose 137 H 122 H Calculated Osmolality Calcium 08/09/17 04:42 WBC RBC Hgb Hct MCV MCH MCHC RDW Plt Count MPV Immature Plt Fraction Sodium 139 Potassium 4.1 Chloride 109 H Carbon Dioxide 19 L BUN 49 H Creatinine 1.62 H Est GFR ( Amer) 55 L Est GFR (Non-Af Amer) 45 L BUN/Creatinine Ratio 30 H Glucose 149 H POC Glucose Calculated Osmolality 304 H Calcium 7.8 L Cultures: Cultures 08/07/17 16:43 Blood Culture - Preliminary Peripheral Venipuncture No growth. 08/07/17 14:41 Blood Culture - Preliminary Peripheral Venipuncture No growth. 08/07/17 16:25 Urine Culture - Preliminary Urine,Catheterized No growth. 08/08/17 17:05 Gram Stain - Final Neck Serology 08/07/17 08/07/17 08/07/17 Range/Units 16:43 16:25 03:25 Urine Color Yellow (Yellow) Urine Clarity Cloudy A (Clear) Urine pH 5.5 (5.0-8.0) pH Units Ur Specific [place] 1.025 (1.010-1.025) Urine Protein 100 H (Neg-Trace) mg/dL Urine Glucose (UA) Normal (Normal) mg/dL Urine Ketones Negative (Negative) mg/dL Urine Blood Negative (Negative) Urine Nitrite Negative (Negative) Urine Bilirubin Negative (Negative) Urine Urobilinogen Normal (Normal) mg/dL Ur Leukocyte Esterase Negative (Negative) Urine Microscopic RBC 0-3 (0-3) per hpf Urine Microscopic WBC 0-3 (0-3) per hpf Ur Squamous Epith Cells Many H (None-Few) per lpf Urine Bacteria Few (None-Few) per hpf Hyaline Casts None Seen (None-Few) per lpf Urine Yeast Few H (None Seen) per hpf Urine Creatinine 136 mg/dL Urine Sodium 54.4 mEq/L Hepatitis C Ab Screen Nonreactive (Nonreactive) HIV Ag/Ab Combo Qual Nonreactive (Nonreactive) 08/07/17 Range/Units 03:25 Urine Color Dark Yellow (Yellow) Urine Clarity Clear (Clear) Urine pH 5.5 (5.0-8.0) pH Units Ur Specific [place] 1.021 (1.010-1.025) Urine Protein 100 H (Neg-Trace) mg/dL Urine Glucose (UA) Normal (Normal) mg/dL Urine Ketones Negative (Negative) mg/dL Urine Blood Negative (Negative) Urine Nitrite Negative (Negative) Urine Bilirubin Negative (Negative) Urine Urobilinogen Normal (Normal) mg/dL Ur Leukocyte Esterase Negative (Negative) Urine Microscopic RBC (0-3) per hpf Urine Microscopic WBC (0-3) per hpf Ur Squamous Epith Cells (None-Few) per lpf Urine Bacteria (None-Few) per hpf Hyaline Casts (None-Few) per lpf Urine Yeast (None Seen) per hpf Urine Creatinine mg/dL Urine Sodium mEq/L Hepatitis C Ab Screen (Nonreactive) HIV Ag/Ab Combo Qual (Nonreactive) - Impressions Impressions Head/Neck Ultrasound 08/08/17 10:00 IMPRESSION: 3.4 cm complex and heterogeneous lesion in the right upper neck which is indeterminate and could be compatible with given history of peritonsillar abscess or could represent a salivary gland. Several lesions in the left upper neck likely represent borderline enlarged lymph nodes. D/ / Alber Oliver MD / Alber Oliver MD Interpreting Provider: Alber Oliver MD Exam - Constitutional Vitals: Temp Pulse Resp BP Pulse Ox 98.6 F 68 14 113/65 96 08/09/17 06:34 08/09/17 06:34 08/09/17 06:34 08/09/17 06:34 08/09/17 06:34 General appearance: average body habitus, cooperative, no acute distress - Head Head exam: Present: atraumatic, normal inspection, normocephalic - Eye Eye exam: Present: EOMI, normal appearance, PERRL Pupils: Present: normal accommodation - ENT ENT exam: Present: mucous membranes moist Additional comments: Limited exam due to patient inability to open mouth due to pain. - Neck Neck exam: Present: tenderness. Absent: normal inspection (Surgical site noted to the right neck with drain in place. Small amount of yellow purulent drainage noted on the dressing. Tenderness noted with palpation and movement of the neck and jaw. Erythema persists, but stable.) - Respiratory Respiratory exam: Present: CTAB. Absent: rales, respiratory distress, rhonchi, wheezes - Cardiovascular Cardiovascular exam: Present: RRR, +S1, +S2 - GI/Abdominal GI/Abdominal exam: Present: normal bowel sounds, soft, tenderness (generalized) . Absent: distended Additional comments: Urinal with ~500ml clear yellow urine noted at the bedside. - Extremities Exam Extremities exam: Present: normal inspection. Absent: joint swelling, pedal edema, tenderness - Neurological Exam Neurological exam: Present: alert, oriented X3, no focal deficits - Psychiatric Psychiatric exam: Present: normal affect, normal mood - Skin Skin exam: Present: dry, intact, normal color, warm - VTE Documentation of Mechanical Device: Intermittent pneumatic compression device Consult Discharge Plan - Plan Referrals: Salas Noramn CNP [Primary Care Provider] - - Attending Attestation I examined this patient and my medical decision-making was reviewed with the Resident Physician. I agree with the documented findings, disposition and treatment plan as described except to the extent set forth below.
[2017-08-09 10:43] LABS: Nucleated Red Blood Cells 0.4 /100 WBC (0)
[2017-08-09 10:46] LABS: Neutrophils # 8.9 K/mcL (1.6-8.9)
[2017-08-09 10:47] LABS: Platelet Estimate Normal (Normal)
[2017-08-09] MEDS: Ketorolac 15 MG/ML VIAL IVP PRN ×2 (11:14→18:19)
[2017-08-09] MEDS: *HR* Promethazine 25 MG/ML VIAL IVP PRN (11:14)
[2017-08-09] MEDS: cefTRIAXone 2,000 MG in Water for inj. (sterile) 20 ML 20 ML IVP SCH (14:16)
[2017-08-09] MEDS: Ringers Solution, Lactated 1,000 ML IVC SCH (18:20)
[2017-08-10] MEDS: Ketorolac 15 MG/ML VIAL IVP PRN ×3 (00:22→21:31)
[2017-08-10] MEDS: OXYCODONE Oral CONC 10 MG/0.5 ML ORAL.SYG SL PRN ×4 (01:38→18:34)
[2017-08-10] MEDS: 0.9 % Sodium Chloride 1,000 ML IVC SCH ×2 (01:40→20:54)
[2017-08-10] MEDS: Clindamycin 900 MG/50 ML 900 MG/50 ML IV.SOLN IVPB SCH ×3 (03:08→20:48)
[2017-08-10] MEDS: *HR* Heparin 5,000 UNIT/ML VIAL SQ SCH ×2 (06:23→18:37)
[2017-08-10] MEDS: Chloraseptic Spray 177 ML BOTTLE MM PRN (07:25)
[2017-08-10] MEDS: cefTRIAXone 2,000 MG in Water for inj. (sterile) 20 ML 20 ML IVP SCH (08:07)
[2017-08-10] MEDS ORDERED: Dexamethasone 4 MG/ML VIAL IVP ONE (08:17)
--- NOTE | 2017-08-10 08:39 | Internal Med Progress Note ---
Date of Encounter: 08/10/17 Time of Encounter: 08:36 - Assessment and plan (1) Sepsis Current Visit: No Status: Acute Assessment and plan: sepsis 2ry to right peritonsillar, right neck and submental abscesses /Dima's angina s/p I and D POD #2 Patient had symptoms of throat pain that started about 5 days ago. He went urgent care and was given Keflex ( took it for 1 1/2 days) for strep infection. Throat pain was progressively getting worse Face CT showed no acute traumatic injury of the facial bones, nasal bone deformity of indeterminate age present. Chronic pacification of the left frontal sinus with air fluid level in the left maxillary sinus. Right tonsillar enlargement was not well visualized. Soft tissue neck CT showed fullness of the right [place] tonsillar fossa, right pharyngeal wall extending into the hypopharynx, edematous changes in the right submandibular space. Chest x-ray was unremarkable. had fever of 100.7, HR in 90s, 22% band neutrophils. strep screen negative IVF clindamycin day 5 ( apparently failed Kefflex as outpatient) Rocephin day #2 ID consulted and recommended clindamycin and rocephin, awaiting additional recommendations resume Decadron IV 2nd CT of the head and neck showed: Persistent enlargement of the right palatine tonsil, consistent with tonsillitis. There is edema of the right parapharyngeal fat. Fullness of the right nasopharynx and edema of the epiglottis, aryepiglottic forms, and piriform sinuses has progressed since the prior examination. Worsening fluid attenuation in the submandibular region, with new areas of hypoattenuation in the left submandibular gland and surrounding the right submandibular gland. Findings may reflect worsening phlegmon or developing abscess. New fluid attenuation area adjacent to the right carotid sheath may reflect phlegmon or developing abscess. Neck ultrasound showed : 3.4 cm complex and heterogeneous lesion in the right upper neck which is indeterminate and could be compatible with given history of peritonsillar abscess or could represent a salivary gland. Several lesions in the left upper neck likely represent borderline enlarged lymph nodes. Qualifiers: Sepsis type: sepsis due to unspecified organism Qualified Code(s): A41.9 - Sepsis, unspecified organism (2) LESLIE (acute kidney injury) Current Visit: Yes Status: Acute Assessment and plan: Due to sepsis Suspect prerenal etiology secondary to dehydration in setting of poor oral intake labs pending IV fluids, use toradol with caution (3) Tobacco abuse Current Visit: No Status: Chronic Assessment and plan: nicotine patch (4) Pharyngitis Current Visit: Yes Status: Acute Assessment and plan: Plan as above Qualifiers: Pharyngitis/tonsillitis etiology: unspecified etiology Qualified Code(s): J02.9 - Acute pharyngitis, unspecified (5) Chest pain Current Visit: Yes Status: Acute Assessment and plan: stable EKG unremarkable Qualifiers: Chest pain type: chest pain due to myocardial ischemia Ischemic chest pain type: unspecified angina pectoris type Qualified Code(s): I25.9 - Chronic ischemic heart disease, unspecified - Time Spent With Patient Total time spent is greater than 50% in coordination of care (as documented) at patient's floor/unit and/or counseling patient: - Subjective Interval history: Feels worse, still having pain over his neck and while swallowing. Purulent material draining to his oral cavity. No fevers, denies any chest pain or shortness of breath, no abdominal pain dysuria, no fevers, last fever recorded was on and it was 100.7 - Constitutional Vitals: Temp Pulse Resp BP Pulse Ox 100.7 F H 66 15 127/72 97 08/10/17 06:50 08/10/17 06:50 08/10/17 06:50 08/10/17 06:50 08/10/17 06:50 General appearance: Present: A&O X 3, pleasant, severe distress (Secondary to throw pain. Patient is toxic appearing.) Exam: - Head Head exam: Present: atraumatic, normocephalic - Eye Eye exam: Present: PERRL, conjuntiva pink, sclera anicteric Pupils: Present: PERRL - Neck Neck exam general surgery: Present: supple, trachea midline. Absent: lymphadenopathy - Respiratory Respiratory exam: Present: CTAB. Absent: accessory muscle use, rales, rhonchi, wheezes - Cardiovascular Cardiovascular exam: Present: RRR, +S1, +S2. Absent: diastolic murmur, gallop, rubs, systolic murmur - GI/Abdominal GI/Abdominal exam: Present: normal bowel sounds, soft, no peritoneal signs. Absent: distended, tenderness - Extremities Exam Extremities exam: Present: warm, radial pulses palpable and symmetrical. Absent : calf tenderness, cyanotic, pedal edema - Neurological Exam Neurological exam: Present: CN II-XII intact, oriented X3, no focal deficits. Absent: pronater drift, facial droop, speech deficit - Expanded Neurological Exam Upper motor neuron: Robson neglect: Normal - Skin Skin exam: Present: dry, intact Additional comments: right neck drain, right submental drain, peritonsillar tenderness and swelling have not improved yellow greyish purulent material draining to oral cavity Internal Medicine: Result - Labs CBC & Chem 7: 08/09/17 04:42 08/09/17 04:42 Labs: Short CBC 08/09/17 Range/Units 04:42 WBC 9.9 (4.3-11.1) K/mcL Hgb 10.3 L (12.9-16.9) g/dL Hct 30.4 L (37.5-50.1) % Plt Count 220 (140-400) K/mcL Neutrophils # 8.9 (1.6-8.9) K/mcL BMP 08/09/17 04:42 Sodium 139 Potassium 4.1 Chloride 109 H Carbon Dioxide 19 L BUN 49 H Creatinine 1.62 H Glucose 149 H Calcium 7.8 L - ABG Interpretation ABG results: PT/INR, D-dimer PT 12.9 Seconds (9.4-12.1) H 08/06/17 20:44 - Impressions Impressions Retroperitoneum Ultrasound 08/07/17 15:00 IMPRESSION: No definite evidence of intrarenal stones or hydronephrosis. Severely distended bladder with extensive debris in the bladder and significant postvoid residual. Recommend correlation with urinalysis. This may represent cystitis/urinary tract infection. D/ / 08/07/2017 16:32:36 Raul Alvarenga MD / andrew Interpreting Provider: Raul Alvarenga MD - VTE Documentation of Mechanical Device: Intermittent pneumatic compression device Consult Discharge Plan - Plan Referrals: Salas Norman [employer] [Primary Care Provider] -
--- NOTE | 2017-08-10 08:49 | Infectious Disease Progress No ---
Date of Encounter: 08/10/17 Time of Encounter: 08:46 - Assessment and Plan (1) Sepsis Current Visit: No Status: Acute The patient had severe sepsis on admission with three SIRS criteria and LESLIE. Likely secondary to peritonsillar abscess, right neck abscess, and submental abscess. The patient has been febrile this morning with Tmax 100.5. Labs from this morning are pending. Blood cultures drawn x 2 sets 08/07/17 are NGTD. Repeat blood cultures x 2 sets now. Qualifiers: Sepsis type: sepsis due to unspecified organism Qualified Code(s): A41.9 - Sepsis, unspecified organism (2) Peritonsillar abscess Current Visit: Yes Status: Acute Location: right tonsil. ENT consulted and following, concern for early peritonsillar abscess given the imaging findings. Per ENT, likely early peritonsillar abscess. Status post bedside I & D by Dr. Rodrigues 08/07/17. No cultures were obtained. Repeat CT of the head and neck 08/08/17 showed left frontal, maxillary, and ethmoid sinusitis and persistent enlargement of the right palatine tonsil consistent with tonsillitis. It also showed edema in the right parapharyngeal fat and fullness of the right nasopharynx and edema of the epiglottis, aryepiglottic forms, and piriform sinuses, worse since prior examination. Worsening fluid attenuation in the submandibular region with new areas of hypoattenuation in the left submandibular gland and surrounding the right submandibular gland noted, concerning for worsening phlegmon or abscess. There was also noted to be new fluid attenuation area adjacent to the right carotid sheath, reflective of phlegmon or developing abscess. UTS of the head/neck 08/08/17 showed a 3.4cm complex and heterogenous lesion in the right upper neck, indeterminate etiology, but could be compatible with peritonsillar abscess vs. salivary gland. Status post I & D right peritonsillar, submental, and right neck abscesses by Dr. Rodrigues. Operative note reviewed. Gross purulence noted intra-op. Cultures are preliminarily negative, but gram stain positive for many GPC and many GNDP. Discussed with micro re: GNDP. They re-checked the gram stain and states it looks anaerobic. No precautions required at this time, but will start Rocephin empirically. Strep screen negative. Clinically, the patient does not appear to be doing very well this morning. Discussed with Dr. Barber and recommend that ENT be contacted to come see the patient BRII. The patient will likely require additional imaging and/or surgical intervention. Continue clindamycin 900mg IV Q8H. Start Vancomycin IV. Pharmacy to dose. Goal trough ~15. Discontinue Rocephin. Start Zosyn 3.375 grams IV Q8H. Dosed for CrCl~52. Duration of treatment depends on the clinical picture. Monitor renal function and dose-adjust antibiotics. (3) Neck abscess Current Visit: Yes Status: Acute Location: Right neck. Status post operative I & D 08/08/[address] Rodrigues. Causative organism unclear. Cultures are preliminarily negative. Continue antibiotics as above. (4) Submental abscess Current Visit: Yes Status: Acute Location: Right neck. Status post operative I & D 08/08/[address] Rodrigues. Causative organism unclear. Cultures are preliminarily negative. Continue antibiotics as above. (5) Sinusitis Current Visit: Yes Status: Acute Location: Left ethmoid, frontal, and maxillary per CT head. Causative organism unclear. Continue antibiotics as above. Qualifiers: Sinusitis location: unspecified location Chronicity: acute Recurrence: non-recurrent Qualified Code(s): J01.90 - Acute sinusitis, unspecified (6) LESLIE (acute kidney injury) Current Visit: Yes Status: Acute Etiology unclear: Post-infectious vs. prerenal vs. post-obstructive vs. other. RP UTS showed no definite evidence of intrarenal stones or hydronephrosis, but did show evidence of extensive debris in the bladder and significant post-void residual. Labs from this morning are pending. Continue to trend. Strict I's and O's. Avoid nephrotoxins. Dose-adjust antibiotics. (7) Dysuria Current Visit: No Status: Acute Etiology unclear. UA normal. Emery catheter placed for urinary retention, but removed per patient's request. PVR ~200. Consider urology consult as outpatient. (8) Chest pain Current Visit: Yes Status: Acute Etiology unclear. Troponins negative x 3. Further workup and management per the primary team. Qualifiers: Chest pain type: unspecified Qualified Code(s): R07.9 - Chest pain, unspecified (9) History of drug use Current Visit: Yes Status: Acute HIV and Hepatitis C antibody nonreactive. (10) Tobacco abuse Current Visit: No Status: Chronic - Subjective Interval history: Patient seen and examined No acute events noted overnight. Patient febrile this morning with Tmax 100.5. Overall, patient does not appear well. Right neck more swollen and patient seems unable to control his secretions and is noted to have a large amount of purulence in the oral cavity. Complains of increased pain to the right neck, face, and head. Complains of back pain as well. States he feels short of breath and very painful to swallow. He is unable to eat this morning. Reports 2 loose stools yesterday. Denies urinary complaints. Infect Dis PN-Objective Data - Labs CBC & Chem 7: 08/10/17 08:20 08/10/17 08:20 Labs: Laboratory Results - last 24 hr 08/09/17 08/09/17 04:42 04:42 WBC 9.9 RBC 3.43 L Hgb 10.3 L Hct 30.4 L MCV 88.6 MCH 30.0 MCHC 33.9 RDW 14.6 H Plt Count 220 MPV 11.5 Immature Gran % Test Not Performed Seg Neutrophils % 74.0 Band Neutrophils % 16.0 H Lymphocytes % 10.0 Monocytes % Test Not Performed Eosinophils % Test Not Performed Basophils % Test Not Performed Neutrophils # 8.9 Lymphocytes # 1.0 Monocytes # Test Not Performed Eosinophils # Test Not Performed Basophils # Test Not Performed Nucleated RBCs/100 WBC 0.4 H Platelet Estimate Normal Immature Plt Fraction 5.4 Sodium 139 Potassium 4.1 Chloride 109 H Carbon Dioxide 19 L BUN 49 H Creatinine 1.62 H Est GFR ( Amer) 55 L Est GFR (Non-Af Amer) 45 L BUN/Creatinine Ratio 30 H Glucose 149 H Calculated Osmolality 304 H Calcium 7.8 L Cultures: Cultures 08/08/17 17:05 Wound Culture - Preliminary Neck No pathogens isolated. 08/07/17 16:25 Urine Culture - Final Urine,Catheterized No growth. 08/07/17 16:43 Blood Culture - Preliminary Peripheral Venipuncture No growth. 08/07/17 14:41 Blood Culture - Preliminary Peripheral Venipuncture No growth. 08/08/17 17:05 Gram Stain - Final Neck Serology 08/07/17 08/07/17 08/07/17 Range/Units 16:43 16:25 03:25 Urine Color Yellow (Yellow) Urine Clarity Cloudy A (Clear) Urine pH 5.5 (5.0-8.0) pH Units Ur Specific [place] 1.025 (1.010-1.025) Urine Protein 100 H (Neg-Trace) mg/dL Urine Glucose (UA) Normal (Normal) mg/dL Urine Ketones Negative (Negative) mg/dL Urine Blood Negative (Negative) Urine Nitrite Negative (Negative) Urine Bilirubin Negative (Negative) Urine Urobilinogen Normal (Normal) mg/dL Ur Leukocyte Esterase Negative (Negative) Urine Microscopic RBC 0-3 (0-3) per hpf Urine Microscopic WBC 0-3 (0-3) per hpf Ur Squamous Epith Cells Many H (None-Few) per lpf Urine Bacteria Few (None-Few) per hpf Hyaline Casts None Seen (None-Few) per lpf Urine Yeast Few H (None Seen) per hpf Urine Creatinine 136 mg/dL Urine Sodium 54.4 mEq/L Hepatitis C Ab Screen Nonreactive (Nonreactive) HIV Ag/Ab Combo Qual Nonreactive (Nonreactive) 08/07/17 Range/Units 03:25 Urine Color Dark Yellow (Yellow) Urine Clarity Clear (Clear) Urine pH 5.5 (5.0-8.0) pH Units Ur Specific [place] 1.021 (1.010-1.025) Urine Protein 100 H (Neg-Trace) mg/dL Urine Glucose (UA) Normal (Normal) mg/dL Urine Ketones Negative (Negative) mg/dL Urine Blood Negative (Negative) Urine Nitrite Negative (Negative) Urine Bilirubin Negative (Negative) Urine Urobilinogen Normal (Normal) mg/dL Ur Leukocyte Esterase Negative (Negative) Urine Microscopic RBC (0-3) per hpf Urine Microscopic WBC (0-3) per hpf Ur Squamous Epith Cells (None-Few) per lpf Urine Bacteria (None-Few) per hpf Hyaline Casts (None-Few) per lpf Urine Yeast (None Seen) per hpf Urine Creatinine mg/dL Urine Sodium mEq/L Hepatitis C Ab Screen (Nonreactive) HIV Ag/Ab Combo Qual (Nonreactive) - Impressions Impressions Retroperitoneum Ultrasound 08/07/17 15:00 IMPRESSION: No definite evidence of intrarenal stones or hydronephrosis. Severely distended bladder with extensive debris in the bladder and significant postvoid residual. Recommend correlation with urinalysis. This may represent cystitis/urinary tract infection. D/ / 08/07/2017 16:32:36 Raul Alvarenga MD / andrew Interpreting Provider: Raul Alvarenga MD Exam - Constitutional Vitals: Temp Pulse Resp BP Pulse Ox 100.7 F H 66 15 127/72 97 08/10/17 06:50 08/10/17 06:50 08/10/17 06:50 08/10/17 06:50 08/10/17 06:50 General appearance: cooperative, mild distress, thin - Head Head exam: Present: atraumatic, normal inspection, normocephalic - Eye Eye exam: Present: EOMI, normal appearance, PERRL Pupils: Present: normal accommodation - ENT ENT exam: Present: mucous membranes moist Additional comments: Large amount of purulent drainage noted in the oral cavity. Pain and swelling limit the patient's ability to completely open his mouth, so exam is limited. - Neck Neck exam: Absent: normal inspection (Erythema, edema. Drain tube noted. Purulence noted from around the drain tube.) - Respiratory Respiratory exam: Present: CTAB. Absent: rales, respiratory distress, rhonchi, wheezes - Cardiovascular Cardiovascular exam: Present: RRR, +S1, +S2 - GI/Abdominal GI/Abdominal exam: Present: normal bowel sounds, soft, tenderness (generalized) . Absent: distended - Extremities Exam Extremities exam: Present: normal inspection. Absent: joint swelling, pedal edema, tenderness - Neurological Exam Neurological exam: Present: alert, oriented X3, no focal deficits - Psychiatric Psychiatric exam: Present: normal affect, normal mood - Skin Skin exam: Present: dry, intact, normal color, warm - VTE Documentation of Mechanical Device: Intermittent pneumatic compression device Consult Discharge Plan - Plan Referrals: Salas Norman [employer]PRENTICE [Primary Care Provider] - - Attending Attestation I examined this patient and my medical decision-making was reviewed with the Resident Physician. I agree with the documented findings, disposition and treatment plan as described except to the extent set forth below.
[2017-08-10 09:05] LABS: Basophils % 0.2 %; Eosinophils % 0.1 %; Hematocrit 31.2 % (37.5-50.1); Hemoglobin 10.6 g/dL (12.9-16.9); Immature Granulocytes % 2.4 % (0-4); Lymphocytes # 1.7 K/mcL (0.6-4.6); Lymphocytes % 18.8 %; Mean Corpuscular Hemoglobin 30.2 pg (28.0-33.3); Mean Corpuscular Volume 88.9 fL (83.0-100.0); Mean Platelet Volume 11.1 fL (9.4-12.4); Monocytes # 0.4 K/mcL (0.0-1.3); Neutrophils # 6.5 K/mcL (1.6-8.9); Platelet Count 237 K/mcL (140-400); Red Blood Count 3.51 M/mcL (4.19-5.50); Red Cell Distribution Width 15.1 % (11.5-14.5); Segmented Neutrophils % 73.5 %
[2017-08-10 09:12] LABS: BUN/Creatinine Ratio 22 (6-26); Blood Urea Nitrogen 31 mg/dL (6-20); Calcium 7.4 mg/dL (8.6-10.3); Carbon Dioxide 20 mEq/L (23-29); Chloride 109 mEq/L (98-107); Glucose 84 mg/dL (70-105); Osmolality,Calculated 286 (280-300); Potassium 4.2 mEq/L (3.5-5.1); Sodium 135 mEq/L (136-145); eGFR For African Americans > 60 (> 60); eGFR For Non-African Americans 53 (> 60)
[2017-08-10 09:38] LABS: Magnesium 1.6 mg/dL (1.6-2.6); Phosphorous 2.1 mg/dL (2.7-4.5)
--- NOTE | 2017-08-10 14:01 | ENT - Progress Note ---
Date of Encounter: 08/10/17 Time of Encounter: 08:00 - Assessment and Plan (1) Tonsillitis Current Visit: Yes Status: Acute (2) Peritonsillar abscess Current Visit: Yes Status: Acute s/p I&D in OR of right peritonsillar abscess, right neck abscess, and submental abscess POD#2 WBC continues to decline 8 today. Pt had fevers overnight Tmx 100.7, increased pain, and diaphoresis this morning. The case was discussed with ID and the hospitalist service. Appreciate everyone' s input. We decided to broaden his antibiotic coverage to Vancomycin and Zosyn Cultures have not been very useful yet, NGTD from OR based wound cultures. Gram stain with GPC and GNDC. Hopeful that his improvement will continue with the broadened abx coverage and he will not need any additional surgical interventions. Ok for full diet as tolerated, would start with soft diet today. Will plan to pull neck drains when clinical improvement noted. (3) LESLIE (acute kidney injury) Current Visit: Yes Status: Acute Improving Continue IVF Subjective Patient reports: other (On initial evaluation this morning, patient was not feeling well and complaining of shortness of breath. He was diaphoretic and intermittent choking as he had copious oral secretions with purulence involved. His antibiotic regimen has been changed today and I reevaluated him this afternoon around 1:00 and he feels much better. Trismus is improved. His fever has subsided. His voice is improved and he is up about to take a shower. Still having birgit purulent drainage from the neck I and D site and less so orally.) Objective Initial Vital Signs Temp Pulse Resp BP Pulse Ox 100.5 F H 94 16 123/83 98 08/06/17 20:20 08/06/17 20:20 08/06/17 20:20 08/06/17 20:20 08/06/17 20:20 - General physical appearance well developed, well nourished - ENT Other (Bruising and purulent drainage from the right soft palate drainage site. Improved trismus and oropharyngeal swelling compared to earlier morning exam.) - Neck other (Ti drain from right neck with purulent drainage around it. Adams drain from submental site with no birgit purulence.) - Respiratory normal expansion, normal respiratory effort - Labs 08/10/17 08:20 08/10/17 08:20 Diabetes panel 08/10/17 Range/Units 08:20 Sodium 135 L (136-145) mEq/L Potassium 4.2 (3.5-5.1) mEq/L Chloride 109 H (98-107) mEq/L Carbon Dioxide 20 L (23-29) mEq/L BUN 31 H (6-20) mg/dL Creatinine 1.41 H (0.70-1.30) mg/dL Glucose 84 (70-105) mg/dL Calcium 7.4 L (8.6-10.3) mg/dL Calcium panel 08/10/17 Range/Units 08:20 Calcium 7.4 L (8.6-10.3) mg/dL Phosphorus 2.1 L (2.7-4.5) mg/dL Pituitary panel 08/10/17 Range/Units 08:20 Sodium 135 L (136-145) mEq/L Potassium 4.2 (3.5-5.1) mEq/L Chloride 109 H (98-107) mEq/L Carbon Dioxide 20 L (23-29) mEq/L BUN 31 H (6-20) mg/dL Creatinine 1.41 H (0.70-1.30) mg/dL Glucose 84 (70-105) mg/dL Calcium 7.4 L (8.6-10.3) mg/dL Adrenal panel 08/10/17 Range/Units 08:20 Sodium 135 L (136-145) mEq/L Potassium 4.2 (3.5-5.1) mEq/L Chloride 109 H (98-107) mEq/L Carbon Dioxide 20 L (23-29) mEq/L BUN 31 H (6-20) mg/dL Creatinine 1.41 H (0.70-1.30) mg/dL Glucose 84 (70-105) mg/dL Calcium 7.4 L (8.6-10.3) mg/dL - VTE Documentation of Mechanical Device: Intermittent pneumatic compression device Consult Discharge Plan - Plan Referrals: Salas Norman CNP [Primary Care Provider] -
[2017-08-10] MEDS: Piperacillin/Tazobactam 3.375 GM in 0.9 % Sodium Chloride Mini Bag 100 ML IVPB SCH ×2 (18:07→23:46)
[2017-08-10] MEDS: *HR* Promethazine 25 MG/ML VIAL IVP PRN (18:33)
[2017-08-10] MEDS: Dexamethasone 4 MG/ML VIAL IVP SCH (20:54)
[2017-08-10] MEDS: Ringers Solution, Lactated 1,000 ML IVC SCH (23:39)
[2017-08-11] MEDS: Clindamycin 900 MG/50 ML 900 MG/50 ML IV.SOLN IVPB SCH ×3 (02:25→18:35)
[2017-08-11] MEDS: 0.9 % Sodium Chloride 1,000 ML IVC SCH ×2 (04:35→22:08)
[2017-08-11] MEDS: Ketorolac 15 MG/ML VIAL IVP PRN ×2 (04:36→18:49)
[2017-08-11] MEDS: *HR* Promethazine 25 MG/ML VIAL IVP PRN ×3 (04:37→22:13)
[2017-08-11] MEDS: *HR* Heparin 5,000 UNIT/ML VIAL SQ SCH ×2 (05:03→18:31)
[2017-08-11 06:53] LABS: BUN/Creatinine Ratio 23 (6-26); Blood Urea Nitrogen 29 mg/dL (6-20); Calcium 7.4 mg/dL (8.6-10.3); Carbon Dioxide 23 mEq/L (23-29); Chloride 108 mEq/L (98-107); Glucose 207 mg/dL (70-105); Osmolality,Calculated 294 (280-300); Potassium 4.2 mEq/L (3.5-5.1); Sodium 136 mEq/L (136-145); eGFR For African Americans > 60 (> 60); eGFR For Non-African Americans > 60 (> 60)
[2017-08-11 07:16] LABS: Basophils % 0.2 %; Eosinophils % 0.1 %; Hematocrit 36.6 % (37.5-50.1); Immature Granulocytes % 2.2 % (0-4); Lymphocytes # 1.3 K/mcL (0.6-4.6); Lymphocytes % 13.1 %; Mean Corpuscular HGB Conc 33.6 g/dL (31.6-35.5); Mean Corpuscular Hemoglobin 29.9 pg (28.0-33.3); Mean Corpuscular Volume 88.8 fL (83.0-100.0); Mean Platelet Volume 11.4 fL (9.4-12.4); Monocytes # 0.2 K/mcL (0.0-1.3); Monocytes % 2.2 %; Platelet Count 259 K/mcL (140-400); Red Blood Count 4.12 M/mcL (4.19-5.50); Red Cell Distribution Width 14.6 % (11.5-14.5); Segmented Neutrophils % 82.2 %
[2017-08-11 07:25] LABS: Hemoglobin 12.3 g/dL (12.9-16.9)
--- NOTE | 2017-08-11 08:24 | ENT - Progress Note ---
Date of Encounter: 08/11/17 Time of Encounter: 08:22 - Assessment and Plan (1) Tonsillitis Current Visit: Yes Status: Acute (2) Peritonsillar abscess Current Visit: Yes Status: Acute s/p I&D in OR of right peritonsillar abscess, right neck abscess, and submental abscess POD#3 Improving with broader abx coverage - currently on Vancomycin and Zosyn New cultures from neck purulence sent today to try to obtain organism and sensitivities. WBC normal, VSS, afebrile Continue current care. Will pull neck drains when clinically able. Recommend ambulation Full diet as tolerated (3) LESLIE (acute kidney injury) Current Visit: Yes Status: Acute Improved. Cr 1.24 today. Subjective Patient reports: other Narrative: Pt feeling better with better voice and mouth opening. Tolerating po. Still neck tenderness and purulent drainage from right neck. Objective Initial Vital Signs Temp Pulse Resp BP Pulse Ox 100.5 F H 94 16 123/83 98 08/06/17 20:20 08/06/17 20:20 08/06/17 20:20 08/06/17 20:20 08/06/17 20:20 - General physical appearance well developed, well nourished, no distress - Eyes normal ocular movement - ENT normal pinna, normal nares, Other (soft palate incision is appropriate with minimal purulent drainage. Improved soft palate and uvular swelling. ) - Neck other (right carmelo in place with purulent drainage. Submental carmelo with crusting around it and no drainage. ) - Respiratory normal expansion, normal respiratory effort - Labs 08/11/17 05:57 08/11/17 05:57 Diabetes panel 08/10/17 08/11/17 Range/Units 08:20 05:57 Sodium 135 L 136 (136-145) mEq/L Potassium 4.2 4.2 (3.5-5.1) mEq/L Chloride 109 H 108 H (98-107) mEq/L Carbon Dioxide 20 L 23 (23-29) mEq/L BUN 31 H 29 H (6-20) mg/dL Creatinine 1.41 H 1.24 (0.70-1.30) mg/dL Glucose 84 207 H (70-105) mg/dL Calcium 7.4 L 7.4 L (8.6-10.3) mg/dL Calcium panel 08/10/17 08/11/17 Range/Units 08:20 05:57 Calcium 7.4 L 7.4 L (8.6-10.3) mg/dL Phosphorus 2.1 L (2.7-4.5) mg/dL Pituitary panel 08/10/17 08/11/17 Range/Units 08:20 05:57 Sodium 135 L 136 (136-145) mEq/L Potassium 4.2 4.2 (3.5-5.1) mEq/L Chloride 109 H 108 H (98-107) mEq/L Carbon Dioxide 20 L 23 (23-29) mEq/L BUN 31 H 29 H (6-20) mg/dL Creatinine 1.41 H 1.24 (0.70-1.30) mg/dL Glucose 84 207 H (70-105) mg/dL Calcium 7.4 L 7.4 L (8.6-10.3) mg/dL Adrenal panel 08/10/17 08/11/17 Range/Units 08:20 05:57 Sodium 135 L 136 (136-145) mEq/L Potassium 4.2 4.2 (3.5-5.1) mEq/L Chloride 109 H 108 H (98-107) mEq/L Carbon Dioxide 20 L 23 (23-29) mEq/L BUN 31 H 29 H (6-20) mg/dL Creatinine 1.41 H 1.24 (0.70-1.30) mg/dL Glucose 84 207 H (70-105) mg/dL Calcium 7.4 L 7.4 L (8.6-10.3) mg/dL - VTE Documentation of Mechanical Device: Intermittent pneumatic compression device Consult Discharge Plan - Plan Referrals: Salas Norman, GRAVEL ROOFER [Primary Care Provider] -
--- NOTE | 2017-08-11 08:27 | Internal Med Progress Note ---
Date of Encounter: 08/11/17 Time of Encounter: 08:25 - Assessment and plan (1) Sepsis Current Visit: No Status: Acute Assessment and plan: sepsis 2ry to right peritonsillar, right neck and submental abscesses /Dima's angina s/p I and D POD #3 Patient had symptoms of throat pain that started about 5 days ago. He went urgent care and was given Keflex ( took it for 1 1/2 days) for strep infection. Throat pain was progressively getting worse Face CT showed no acute traumatic injury of the facial bones, nasal bone deformity of indeterminate age present. Chronic pacification of the left frontal sinus with air fluid level in the left maxillary sinus. Right tonsillar enlargement was not well visualized. Soft tissue neck CT showed fullness of the right [place] tonsillar fossa, right pharyngeal wall extending into the hypopharynx, edematous changes in the right submandibular space. Chest x-ray was unremarkable. had fever of 100.7, HR in 90s, 22% band neutrophils. strep screen negative IVF clindamycin day 6 ( apparently failed Kefflex as outpatient) Stopped Rocephin at day #2 Was started on Vancomycin and ZOsyn IV Day 2 ID consulted and recommended resumed Decadron IV 2nd CT of the head and neck showed: Persistent enlargement of the right palatine tonsil, consistent with tonsillitis. There is edema of the right parapharyngeal fat. Fullness of the right nasopharynx and edema of the epiglottis, aryepiglottic forms, and piriform sinuses has progressed since the prior examination. Worsening fluid attenuation in the submandibular region, with new areas of hypoattenuation in the left submandibular gland and surrounding the right submandibular gland. Findings may reflect worsening phlegmon or developing abscess. New fluid attenuation area adjacent to the right carotid sheath may reflect phlegmon or developing abscess. Neck ultrasound showed : 3.4 cm complex and heterogeneous lesion in the right upper neck which is indeterminate and could be compatible with given history of peritonsillar abscess or could represent a salivary gland. Several lesions in the left upper neck likely represent borderline enlarged lymph nodes. Qualifiers: Qualified Code(s): A41.9 - Sepsis, unspecified organism (2) LESLIE (acute kidney injury) Current Visit: Yes Status: Acute Assessment and plan: Due to sepsis Suspect prerenal etiology secondary to dehydration in setting of poor oral intake improving IV fluids, use toradol with caution (3) Tobacco abuse Current Visit: No Status: Chronic Assessment and plan: nicotine patch (4) Pharyngitis Current Visit: Yes Status: Acute Assessment and plan: Plan as above Qualifiers: Qualified Code(s): J02.9 - Acute pharyngitis, unspecified (5) Chest pain Current Visit: Yes Status: Acute Assessment and plan: stable EKG unremarkable Qualifiers: Qualified Code(s): I25.9 - Chronic ischemic heart disease, unspecified - Time Spent With Patient Total time spent is greater than 50% in coordination of care (as documented) at patient's floor/unit and/or counseling patient: - Subjective Interval history: Feels like it better, still having pain over his neck and while swallowing. Purulent material draining to his oral cavity and right neck strain. No fevers, denies any chest pain or shortness of breath, no abdominal pain dysuria, no fevers, last fever recorded was on and it was 100.7 - Constitutional Vitals: Temp Pulse Resp BP Pulse Ox 98.0 F 54 15 101/69 95 08/11/17 06:47 08/11/17 06:47 08/11/17 06:47 08/11/17 06:47 08/11/17 06:47 General appearance: Present: A&O X 3, pleasant, severe distress (Secondary to throw pain. Patient is toxic appearing.) Exam: - Head Head exam: Present: atraumatic, normocephalic - Eye Eye exam: Present: PERRL, conjuntiva pink, sclera anicteric Pupils: Present: PERRL - Neck Neck exam general surgery: Present: supple, trachea midline. Absent: lymphadenopathy - Respiratory Respiratory exam: Present: CTAB. Absent: accessory muscle use, rales, rhonchi, wheezes - Cardiovascular Cardiovascular exam: Present: RRR, +S1, +S2. Absent: diastolic murmur, gallop, rubs, systolic murmur - GI/Abdominal GI/Abdominal exam: Present: normal bowel sounds, soft, no peritoneal signs. Absent: distended, tenderness - Extremities Exam Extremities exam: Present: warm, radial pulses palpable and symmetrical. Absent : calf tenderness, cyanotic, pedal edema - Neurological Exam Neurological exam: Present: CN II-XII intact, oriented X3, no focal deficits. Absent: pronater drift, facial droop, speech deficit - Expanded Neurological Exam Upper motor neuron: Robson neglect: Normal - Skin Skin exam: Present: dry, intact Additional comments: right neck drain with purulent material draining, right submental drain, peritonsillar tenderness and swelling have not improved yellow greyish purulent material draining to oral cavity Internal Medicine: Result - Labs CBC & Chem 7: 08/11/17 05:57 08/11/17 05:57 Labs: Short CBC 08/10/17 08/11/17 Range/Units 08:20 05:57 WBC 8.9 9.7 (4.3-11.1) K/mcL Hgb 10.6 L 12.3 L D (12.9-16.9) g/dL Hct 31.2 L 36.6 L (37.5-50.1) % Plt Count 237 259 (140-400) K/mcL Neutrophils # 6.5 8.0 (1.6-8.9) K/mcL BMP 08/10/17 08/11/17 08:20 05:57 Sodium 135 L 136 Potassium 4.2 4.2 Chloride 109 H 108 H Carbon Dioxide 20 L 23 BUN 31 H 29 H Creatinine 1.41 H 1.24 Glucose 84 207 H Calcium 7.4 L 7.4 L - ABG Interpretation ABG results: PT/INR, D-dimer PT 12.9 Seconds (9.4-12.1) H 08/06/17 20:44 - Impressions Impressions Soft Tissue Neck CT 08/08/17 08:06 IMPRESSION: Suboptimal evaluation without intravenous contrast. Persistent enlargement of the right palatine tonsil, consistent with tonsillitis. There is edema of the right parapharyngeal fat. Fullness of the right nasopharynx and edema of the epiglottis, aryepiglottic forms, and piriform sinuses has progressed since the prior examination. Worsening fluid attenuation in the submandibular region, with new areas of hypoattenuation in the left submandibular gland and surrounding the right submandibular gland. Findings may reflect worsening phlegmon or developing abscess. New fluid attenuation area adjacent to the right carotid sheath may reflect phlegmon or developing abscess. Bilateral reactive cervical adenopathy. The findings were sent to the Radiology Results [facility] at 10:03 am on 08/08/2017to be communicated to a licensed caregiver. D/ / 08/08/2017 10:07:47 Pablo Holley MD / melvin Interpreting Provider: Pablo Holley MD - VTE Documentation of Mechanical Device: Intermittent pneumatic compression device Consult Discharge Plan - Plan Referrals: Salas Norman CNP [Primary Care Provider] -
[2017-08-11] MEDS: OXYCODONE Oral CONC 10 MG/0.5 ML ORAL.SYG SL PRN ×3 (08:58→22:14)
[2017-08-11] MEDS: Dexamethasone 4 MG/ML VIAL IVP SCH ×2 (08:59→20:03)
[2017-08-11] MEDS: Piperacillin/Tazobactam 3.375 GM in 0.9 % Sodium Chloride Mini Bag 100 ML IVPB SCH ×3 (09:01→23:18)
[2017-08-11] MEDS: Ringers Solution, Lactated 1,000 ML IVC SCH (18:24)
[2017-08-11] MEDS: *HR* LORazepam 2 MG/ML VIAL IVP PRN (23:21)
--- NOTE | 2017-08-12 01:47 | Event Note ---
Date of Encounter: 08/12/17 Time of Encounter: 01:40 Called by RN pt was found sitting on floor. Examined pt bedsised. Pt is AAO x3 when I see him. Pt got up but feels dizzy and fell. Pt was just received Ativan before he got up, which may explain the dizziness. Pt denies loss of consciousness, denies having head or neck injury. Only painful part of body is left elbow. Pt can move left arm with full ROM of Lt elbow joint. Will order bedside left elbow XR.
[2017-08-12] MEDS: Clindamycin 900 MG/50 ML 900 MG/50 ML IV.SOLN IVPB SCH ×3 (03:53→19:51)
[2017-08-12] MEDS: 0.9 % Sodium Chloride 1,000 ML IVC SCH ×2 (05:01→20:55)
[2017-08-12] MEDS: *HR* Heparin 5,000 UNIT/ML VIAL SQ SCH ×2 (05:02→17:06)
[2017-08-12] MEDS: Piperacillin/Tazobactam 3.375 GM in 0.9 % Sodium Chloride Mini Bag 100 ML IVPB SCH ×2 (08:10→17:06)
[2017-08-12] MEDS: Dexamethasone 4 MG/ML VIAL IVP SCH ×2 (08:10→20:54)
[2017-08-12] MEDS: Ketorolac 15 MG/ML VIAL IVP PRN (08:10)
--- NOTE | 2017-08-12 08:17 | Internal Med Progress Note ---
Date of Encounter: 08/12/17 Time of Encounter: 08:15 - Assessment and plan (1) Sepsis Current Visit: No Status: Acute Assessment and plan: sepsis 2ry to right peritonsillar, right neck and submental abscesses /Dima's angina s/p I and D POD #4 Patient had symptoms of throat pain that started about 5 days ago. He went urgent care and was given Keflex ( took it for 1 1/2 days) for strep infection. Throat pain was progressively getting worse Face CT showed no acute traumatic injury of the facial bones, nasal bone deformity of indeterminate age present. Chronic pacification of the left frontal sinus with air fluid level in the left maxillary sinus. Right tonsillar enlargement was not well visualized. Soft tissue neck CT showed fullness of the right [place] tonsillar fossa, right pharyngeal wall extending into the hypopharynx, edematous changes in the right submandibular space. Chest x-ray was unremarkable. had fever of 100.7, HR in 90s, 22% band neutrophils. strep screen negative IVF clindamycin day 7 (apparently failed Kefflex as outpatient) Stopped Rocephin at day #2 Continue Vancomycin and Zosyn IV Day 3 ID following the case continue Decadron IV 2nd CT of the head and neck showed: Persistent enlargement of the right palatine tonsil, consistent with tonsillitis. There is edema of the right parapharyngeal fat. Fullness of the right nasopharynx and edema of the epiglottis, aryepiglottic forms, and piriform sinuses has progressed since the prior examination. Worsening fluid attenuation in the submandibular region, with new areas of hypoattenuation in the left submandibular gland and surrounding the right submandibular gland. Findings may reflect worsening phlegmon or developing abscess. New fluid attenuation area adjacent to the right carotid sheath may reflect phlegmon or developing abscess. Neck ultrasound showed : 3.4 cm complex and heterogeneous lesion in the right upper neck which is indeterminate and could be compatible with given history of peritonsillar abscess or could represent a salivary gland. Several lesions in the left upper neck likely represent borderline enlarged lymph nodes. Qualifiers: Sepsis type: sepsis due to unspecified organism Qualified Code(s): A41.9 - Sepsis, unspecified organism (2) LESLIE (acute kidney injury) Current Visit: Yes Status: Acute Assessment and plan: Due to sepsis Suspect prerenal etiology secondary to dehydration in setting of poor oral intake improving IV fluids, use toradol with caution (3) Tobacco abuse Current Visit: No Status: Chronic Assessment and plan: nicotine patch (4) Pharyngitis Current Visit: Yes Status: Acute Assessment and plan: Plan as above Qualifiers: Pharyngitis/tonsillitis etiology: unspecified etiology Qualified Code(s): J02.9 - Acute pharyngitis, unspecified (5) Chest pain Current Visit: Yes Status: Acute Assessment and plan: stable EKG unremarkable Qualifiers: Chest pain type: chest pain due to myocardial ischemia Ischemic chest pain type: unspecified angina pectoris type Qualified Code(s): I25.9 - Chronic ischemic heart disease, unspecified - Time Spent With Patient Total time spent is greater than 50% in coordination of care (as documented) at patient's floor/unit and/or counseling patient: - Subjective Interval history: Feels a little better, having pain over his neck and while swallowing. Purulent material draining to his oral cavity and right neck strain. No fevers, denies any chest pain or shortness of breath, no abdominal pain dysuria, no fevers, last fever recorded was on and it was 100.7 - Constitutional Vitals: Temp Pulse Resp BP Pulse Ox 98.2 F 60 18 122/76 95 08/12/17 06:16 08/12/17 07:00 08/12/17 07:00 08/12/17 07:00 08/12/17 07:00 General appearance: Present: A&O X 3, pleasant, severe distress (Secondary to throw pain. Patient is toxic appearing.) Exam: - Head Head exam: Present: atraumatic, normocephalic - Eye Eye exam: Present: PERRL, conjuntiva pink, sclera anicteric Pupils: Present: PERRL - Neck Neck exam general surgery: Present: supple, trachea midline. Absent: lymphadenopathy - Respiratory Respiratory exam: Present: CTAB. Absent: accessory muscle use, rales, rhonchi, wheezes - Cardiovascular Cardiovascular exam: Present: RRR, +S1, +S2. Absent: diastolic murmur, gallop, rubs, systolic murmur - GI/Abdominal GI/Abdominal exam: Present: normal bowel sounds, soft, no peritoneal signs. Absent: distended, tenderness - Extremities Exam Extremities exam: Present: warm, radial pulses palpable and symmetrical. Absent : calf tenderness, cyanotic, pedal edema - Neurological Exam Neurological exam: Present: CN II-XII intact, oriented X3, no focal deficits. Absent: pronater drift, facial droop, speech deficit - Expanded Neurological Exam Upper motor neuron: Robson neglect: Normal - Skin Skin exam: Present: dry, intact Additional comments: right neck drain with copious purulent material , right submental drain, peritonsillar tenderness and swelling have improved minimally yellow greyish purulent material draining less to oral cavity Internal Medicine: Result - Labs CBC & Chem 7: 08/11/17 05:57 08/11/17 05:57 - ABG Interpretation ABG results: PT/INR, D-dimer PT 12.9 Seconds (9.4-12.1) H 08/06/17 20:44 - Impressions Impressions Elbow X-Ray 08/12/17 01:43 IMPRESSION: No definite fracture identified with questionable joint effusion. Repeat radiographs could be obtained in 8-10 days if pain persists. D/ / Clifford Gordillo MD / Clifford Gordillo MD Interpreting Provider: Clifford Gordillo MD - VTE Documentation of Mechanical Device: Intermittent pneumatic compression device Consult Discharge Plan - Plan Referrals: Salas Norman CNP [Primary Care Provider] - Prescriptions: Doxycycline 100 mg PO BID #14 capsule
--- NOTE | 2017-08-12 11:17 | ENT - Progress Note ---
Date of Encounter: 08/12/17 Time of Encounter: 11:15 - Assessment and Plan (1) Tonsillitis Current Visit: Yes Status: Acute (2) Peritonsillar abscess Current Visit: Yes Status: Acute s/p I&D in OR of right peritonsillar abscess, right neck abscess, and submental abscess POD#4 Improving with broader abx coverage - currently on Vancomycin and Zosyn New cultures pending. VSS, afebrile Submental drain removed today, right neck drain still with purulent drainage but decreasing. Will de-escalate and transition to po abx when able. Will pull right neck drain when clinically indicated, possibly tomorrow? I will sign this patient off to the next ENT rn on site coverage to begin tomorrow. (3) LESLIE (acute kidney injury) Current Visit: Yes Status: Acute Improved w IVF Subjective Patient reports: no new complaints Narrative: Pt w some anxiety about home situation last night. More at ease today. Reports he has no plans to leave AMA. His neck is softer and feeling better. Still with purulent drainage but decreasing. Tolerating po. Objective Initial Vital Signs Temp Pulse Resp BP Pulse Ox 100.5 F H 94 16 123/83 98 08/06/17 20:20 08/06/17 20:20 08/06/17 20:20 08/06/17 20:20 08/06/17 20:20 - General physical appearance well developed, well nourished - Eyes normal ocular movement - ENT normal pinna, Other (Improving oral exam with less edema and purulent drainage orally.) - Neck other (Submental drain removed today, no drainage from that area. The right neck drain still has purulent drainge but decreasing. Neck is softer throughout. ) - Respiratory normal expansion, normal respiratory effort - Labs 08/11/17 05:57 08/11/17 05:57 - VTE Documentation of Mechanical Device: Intermittent pneumatic compression device Consult Discharge Plan - Plan Referrals: Salas Norman CNP [Primary Care Provider] - Prescriptions: Doxycycline 100 mg PO BID #14 capsule
[2017-08-12] MEDS ORDERED: *HR* Atropine Sulfate 1 MG/10 ML SYRINGE ONE (13:54)
--- NOTE | 2017-08-12 15:19 | Pulmonology Consult Note ---
<Justin Baird - Last Filed: 08/12/17 17:05> Date of Encounter: 08/12/17 Time of Encounter: 16:21 Assessment and Plan (1) Sepsis Current Visit: No Status: Acute Patient's admission and clinical exam related the source to his head and neck. Source: right peritonsillar, right neck and submental abscesses /Dima's angina s/p I and D POD #[address] showed no acute traumatic injury of the facial bones, nasal bone deformity of indeterminate age present. Chronic pacification of the left frontal sinus with air fluid level in the left maxillary sinus. Right tonsillar enlargement was not well visualized. Soft tissue neck CT showed fullness of the right [place] tonsillar fossa, right pharyngeal wall extending into the hypopharynx, edematous changes in the right submandibular space. Ultrasound Neck showed a 3.4 cm complex lesion in the right upper neck concerning for peritonsillar abscess. Chest x-ray was unremarkable. had fever of 100.7, HR in 90s, 22% band neutrophils. PLAN -On broad-spectrum antibiotics including clindamycin day 7, vancomycin and Zosyn day 3. -Stopped Rocephin at day #2 -Continue Vancomycin and Zosyn IV Day 3 -ID following the case. appreciate scale. -continue Decadron IV Qualifiers: Sepsis type: sepsis due to unspecified organism Qualified Code(s): A41.9 - Sepsis, unspecified organism (2) Bradycardia Current Visit: No Status: Acute Patient was noted have sinus bradycardia with a heart rate of 38 on the floor. Patient responded to atropine. Patient was transferred on dobutamine to the ICU. Patient's blood pressure is preserved. Patient's on a low-dose of dobutamine. Etiology is unclear. Looking back it appears the patient has always had a lower heart rate over the past 2 years. Possible vasovagal or parasympathetic driven in the setting of acute stress with recent drainage of peritonsillar abscess. Patient also describes several episodes of syncope in the past. Plan -Titrate down the dobutamine. -CBC and electrolytes are pending. -Echo pending -TSH and random cortisol pending -Appreciate cardiology consult. (3) Tobacco abuse Current Visit: No Status: Chronic (4) Pharyngitis Current Visit: Yes Status: Acute Qualifiers: Pharyngitis/tonsillitis etiology: unspecified etiology Qualified Code(s): J02.9 - Acute pharyngitis, unspecified (5) LESLIE (acute kidney injury) Current Visit: Yes Status: Acute Creatinine initially was 2.43 on admission. Likely prerenal given the patient' s history. Responding to IV fluid hydration. Currently the patient is producing a lot of urine. Patient's kidney function has been improving. Will decrease the maintenance IV fluids. Will use caution with nephrotoxic agents. Patient was on Toradol when necessary will DC that currently and continue to monitor the patient's kidney function. (6) Chest pain Current Visit: Yes Status: Acute Patient had serial troponins which were negative. Less likely ACS in nature. Patient's EKG shows sinus bradycardia. It is unclear whether the patient had a recent echo. We will order an echo. Hospitalist consult cardiology. Appreciate recommendations. Qualifiers: Chest pain type: chest pain due to myocardial ischemia Ischemic chest pain type: unspecified angina pectoris type Qualified Code(s): I25.9 - Chronic ischemic heart disease, unspecified (7) DVT prophylaxis Current Visit: No Status: Acute Patient is on subcutaneous heparin. History of Present Illness Consult date: 08/12/17 Requesting physician: Rajeev Camp Reason for consult: other (Bradycardia and critical care management) Chief complaint: Throat pain History of present illness: 52-year-old male smoker remote history of cocaine use presents for evaluation to the emergency department for chest discomfort and pain. Patient also states he had a sore throat with strep infections in the past. Patient was concerned because his neck was more swollen. Patient was admitted for sepsis with a source of neck abscesses. Patient's prodrome was approximately throat pain that progressively got worse over the past 3 days. Patient denies any IV drug use. Patient states he has had decreased oral intake related the pain. Patient had acute kidney injury likely prerenal related to the oral intake. During the hospital course the patient was on the floor and was postop a 4 for incision and drainage of neck abscesses by ENT. Patient was noted have a change in rhythm and became bradycardic. Patient's heart was noted be 38 and responded to atropine. Patient's heart rate was in the 50s. Dobutamine drip was started at that time. Past Med Surg Social Fam HX - Past Medical History Medical history: GERD, kidney stones, other (Degenerative disc disease, CAD, hyperlipidemia) Psychiatric history: no psych history - Past Surgical History Surgical History: other (Heart catheterization that showed minimal occlusion.) - Social History Smoking Status: Current every day smoker Packs per day: 0.5 Smokeless Tobacco Status: No Alcohol use: none Drug use: none - Family History Mother Hx Family Cancer: Yes (lymphoma) Father Hx Family Endocrine Disorder: Yes (DM) Medications and Allergies Doxycycline 100 mg PO BID #14 capsule 08/11/17 [Rx] 3 Allergy/AdvReac Type Severity Reaction Status Date / Time gabapentin [From Neurontin] AdvReac Nausea Verified 08/06/17 21:48 pregabalin [From Lyrica] AdvReac Nausea Verified 08/06/17 21:48 All Systems: The remainder of the systems were reviewed and are negative - Constitutional Constitutional: as per HPI, fatigue - EENT Nose, mouth and throat: as per HPI - Cardiovascular Cardiovascular: as per HPI, chest pain - Respiratory Respiratory: as per HPI - Gastrointestinal Gastrointestinal: as per HPI - Genitourinary Genitourinary: as per HPI - Integumentary Integumentary: as per HPI Physical Examination Vital Signs: Vital Signs, Last 4 Hours Temp Pulse Resp BP Pulse Ox 08/12/17 14:00 98.5 F 43 18 147/87 98 08/12/17 11:30 41 18 139/81 94 General appearance: no acute distress Eyes: nonicteric ENT: other (Right sided [place] neck drain dressing in place. Trismus. No drooling. No stridor.) Neck: other (As described) Effort: normal Inspection: normal Cardiovascular: other (Sinus bradycardia) Gastrointestinal: normoactive bowel sounds, non-distended Integumentary: normal Musculoskeletal: no deformities normal mental status, non-focal exam Results - Laboratory Findings CBC and BMP: 08/12/17 16:45 08/11/17 05:57 PT/INR, D-dimer PT 12.9 Seconds (9.4-12.1) H 08/06/17 20:44 Abnormal lab findings: Abnormal lab results RBC 4.12 M/mcL (4.19-5.50) L 08/11/17 05:57 Hgb 12.3 g/dL (12.9-16.9) L D 08/11/17 05:57 Hct 36.6 % (37.5-50.1) L 08/11/17 05:57 RDW 14.6 % (11.5-14.5) H 08/11/17 05:57 Band Neutrophils % 16.0 % (0-4) H 08/09/17 04:42 Nucleated RBCs/100 WBC 0.4 /100 WBC (0) H 08/09/17 04:42 PT 12.9 Seconds (9.4-12.1) H 08/06/17 20:44 Chloride 108 mEq/L (98-107) H 08/11/17 05:57 BUN 29 mg/dL (6-20) H 08/11/17 05:57 Glucose 207 mg/dL (70-105) H 08/11/17 05:57 Calcium 7.4 mg/dL (8.6-10.3) L 08/11/17 05:57 Phosphorus 2.1 mg/dL (2.7-4.5) L 08/10/17 08:20 Albumin 3.4 g/dL (3.5-5.7) L 08/06/17 20:54 Lipase 6 Units/L (11-82) L 08/06/17 20:54 Urine Clarity Cloudy (Clear) A 08/07/17 16:25 Urine Protein 100 mg/dL (Neg-Trace) H 08/07/17 16:25 Ur Squamous Epith Cells Many per lpf (None-Few) H 08/07/17 16:25 Urine Yeast Few per hpf (None Seen) H 08/07/17 16:25 - Microbiology Findings Microbiology Findings: Microbiology, Last 48 Hours 08/11/17 08:25 Wound Culture - Preliminary Neck No pathogens isolated. 08/11/17 08:25 Gram Stain - Final Neck 08/08/17 17:05 Wound Culture - Final Neck No pathogens isolated. - Clinical Findings Intake & Output: Intake & Output 08/11/17 08/12/17 08/12/17 23:59 07:59 15:59 Intake Total 200 / 200 1640 / 1640 160 / 160 Output Total 0 / 0 1775 / 1775 550 / 550 Balance 200 / 200 -135 / -135 -390 / -390 Weight 66.5 kg 65 kg Consult Discharge Plan - Plan Referrals: Toppins,Salas S, SENIOR MARKETING SPECIALIST [Primary Care Provider] - Prescriptions: Doxycycline 100 mg PO BID #14 capsule <Louisa Alexander S - Last Filed: 08/13/17 07:45> Date of Encounter: 08/13/17 All Systems: The remainder of the systems were reviewed and are negative Physical Examination Vital Signs: Vital Signs, Last 4 Hours Temp Pulse Resp BP Pulse Ox 08/13/17 07:00 44 12 118/78 95 08/13/17 06:00 52 16 118/73 95 08/13/17 05:00 42 16 95 08/13/17 04:00 98.3 F 46 16 130/78 96 Results - Laboratory Findings CBC and BMP: 08/13/17 01:21 08/13/17 01:21 PT/INR, D-dimer PT 12.9 Seconds (9.4-12.1) H 08/06/17 20:44 Abnormal lab findings: Abnormal lab results WBC 12.9 K/mcL (4.3-11.1) H 08/13/17 01:21 RBC 3.62 M/mcL (4.19-5.50) L 08/13/17 01:21 Hgb 10.7 g/dL (12.9-16.9) L 08/13/17 01:21 Hct 31.5 % (37.5-50.1) L 08/13/17 01:21 Plt Count 423 K/mcL (140-400) H 08/13/17 01:21 Band Neutrophils % 16.0 % (0-4) H 08/09/17 04:42 Neutrophils # 9.5 K/mcL (1.6-8.9) H 08/12/17 16:45 Nucleated RBCs/100 WBC 0.4 /100 WBC (0) H 08/09/17 04:42 PT 12.9 Seconds (9.4-12.1) H 08/06/17 20:44 Sodium 135 mEq/L (136-145) L 08/13/17 01:21 Chloride 110 mEq/L (98-107) H 08/13/17 01:21 BUN 25 mg/dL (6-20) H 08/13/17 01:21 Glucose 122 mg/dL (70-105) H 08/13/17 01:21 Calcium 7.4 mg/dL (8.6-10.3) L 08/13/17 01:21 Venous Ioniz Calcium 1.11 mmol/L (1.15-1.35) L 08/13/17 01:30 Albumin 3.4 g/dL (3.5-5.7) L 08/06/17 20:54 Lipase 6 Units/L (11-82) L 08/06/17 20:54 TSH 0.278 mcIU/mL (0.340-5.600) L 08/12/17 16:45 Urine Clarity Cloudy (Clear) A 08/07/17 16:25 Urine Protein 100 mg/dL (Neg-Trace) H 08/07/17 16:25 Ur Squamous Epith Cells Many per lpf (None-Few) H 08/07/17 16:25 Urine Yeast Few per hpf (None Seen) H 08/07/17 16:25 - Microbiology Findings Microbiology Findings: Microbiology, Last 48 Hours 08/07/17 16:43 Blood Culture - Final Peripheral Venipuncture No growth. 08/07/17 14:41 Blood Culture - Final Peripheral Venipuncture No growth. 08/11/17 08:25 Wound Culture - Preliminary Neck No pathogens isolated. 08/11/17 08:25 Gram Stain - Final Neck 08/08/17 17:05 Wound Culture - Final Neck No pathogens isolated. - Clinical Findings Intake & Output: Intake & Output 08/12/17 08/12/17 08/13/17 15:59 23:59 07:59 Intake Total 210 / 210 1690 / 1690 400 / 400 Output Total 550 / 550 1075 / 1075 1150 / 1150 Balance -340 / -340 615 / 615 -750 / -750 Weight 65 kg 73 kg - Attending Attestation I ddint see this patient the note was wrongly assigned to me .
[2017-08-12 16:54] LABS: Basophils % 0.2 %; Eosinophils % 0.2 %; Hematocrit 32.2 % (37.5-50.1); Hemoglobin 11.1 g/dL (12.9-16.9); Immature Granulocytes % 3.1 % (0-4); Lymphocytes # 1.9 K/mcL (0.6-4.6); Lymphocytes % 15.2 %; Mean Corpuscular HGB Conc 34.5 g/dL (31.6-35.5); Mean Corpuscular Hemoglobin 30.6 pg (28.0-33.3); Mean Corpuscular Volume 88.7 fL (83.0-100.0); Mean Platelet Volume 10.5 fL (9.4-12.4); Monocytes # 0.6 K/mcL (0.0-1.3); Monocytes % 4.5 %; Neutrophils # 9.5 K/mcL (1.6-8.9); Platelet Count 385 K/mcL (140-400); Red Blood Count 3.63 M/mcL (4.19-5.50); Red Cell Distribution Width 14.3 % (11.5-14.5); Segmented Neutrophils % 76.8 %
[2017-08-12 17:15] LABS: BUN/Creatinine Ratio 24 (6-26); Blood Urea Nitrogen 25 mg/dL (6-20); Calcium 7.4 mg/dL (8.6-10.3); Carbon Dioxide 20 mEq/L (23-29); Carbon Dioxide 21 mEq/L (23-29); Chloride 110 mEq/L (98-107); Chloride 111 mEq/L (98-107); Glucose 101 mg/dL (70-105); Glucose 102 mg/dL (70-105); Magnesium 1.7 mg/dL (1.6-2.6); Osmolality,Calculated 287 (280-300); Phosphorous 2.5 mg/dL (2.7-4.5); Potassium 3.9 mEq/L (3.5-5.1); Sodium 136 mEq/L (136-145); eGFR For African Americans > 60 (> 60); eGFR For Non-African Americans > 60 (> 60)
[2017-08-12] MEDS: OXYCODONE Oral CONC 10 MG/0.5 ML ORAL.SYG SL PRN (19:51)
[2017-08-12] MEDS: Ondansetron 4 MG/2 ML VIAL IVP PRN (19:51)
[2017-08-12] MEDS: *HR* LORazepam 2 MG/ML VIAL IVP PRN (23:08)
[2017-08-13 01:33] LABS: VBG Ionized Calcium 1.11 mmol/L (1.15-1.35)
[2017-08-13 01:35] LABS: Hematocrit 31.5 % (37.5-50.1); Hemoglobin 10.7 g/dL (12.9-16.9); Mean Corpuscular Hemoglobin 29.6 pg (28.0-33.3); Mean Platelet Volume 10.3 fL (9.4-12.4); Platelet Count 423 K/mcL (140-400); Red Blood Count 3.62 M/mcL (4.19-5.50); Red Cell Distribution Width 14.3 % (11.5-14.5)
[2017-08-13 01:54] LABS: Phosphorous 3.2 mg/dL (2.7-4.5)
[2017-08-13 01:55] LABS: BUN/Creatinine Ratio 22 (6-26); Blood Urea Nitrogen 25 mg/dL (6-20); Calcium 7.4 mg/dL (8.6-10.3); Carbon Dioxide 23 mEq/L (23-29); Chloride 110 mEq/L (98-107); Glucose 122 mg/dL (70-105); Osmolality,Calculated 286 (280-300); Potassium 4.7 mEq/L (3.5-5.1); Sodium 135 mEq/L (136-145); eGFR For African Americans > 60 (> 60); eGFR For Non-African Americans > 60 (> 60)
[2017-08-13] MEDS: Clindamycin 900 MG/50 ML 900 MG/50 ML IV.SOLN IVPB SCH ×3 (03:02→18:27)
[2017-08-13] MEDS: *HR* Heparin 5,000 UNIT/ML VIAL SQ SCH ×2 (06:04→18:26)
[2017-08-13] MEDS: OXYCODONE Oral CONC 10 MG/0.5 ML ORAL.SYG SL PRN ×4 (06:13→23:36)
[2017-08-13] MEDS: Piperacillin/Tazobactam 3.375 GM in 0.9 % Sodium Chloride Mini Bag 100 ML IVPB SCH ×4 (07:33→23:38)
[2017-08-13] MEDS: Dexamethasone 4 MG/ML VIAL IVP SCH ×2 (07:33→20:41)
--- NOTE | 2017-08-13 09:23 | Pulmonology Consult Note ---
Date of Encounter: 08/13/17 Time of Encounter: 09:19 Assessment and Plan (1) Bradycardia Current Visit: No Status: Acute The patient has what appears to be sinus bradycardia into my evaluation of the ECGs and telemetry strips. Will need formal cardiology consultation and there is no evidence of hemodynamic compromise at this time he would be stable for transfer out to telemetry for ongoing care if no further interventions planned by cardiology service (2) Nausea & vomiting Current Visit: No Status: Acute We will continue antiemetics. IV fluids as needed for volume losses Qualifiers: Vomiting type: unspecified Vomiting Intractability: non-intractable Qualified Code(s): R11.2 - Nausea with vomiting, unspecified (3) Sepsis Current Visit: No Status: Acute This is improving with broad-spectrum antimicrobials for peritonsillar abscess. He is currently on vancomycin and Zosyn and I will continue to defer to the infectious disease service for monitoring and recommendations Cultures pending thus far Qualifiers: Sepsis type: sepsis due to unspecified organism Qualified Code(s): A41.9 - Sepsis, unspecified organism (4) Peritonsillar abscess Current Visit: Yes Status: Acute ENT following his status post surgery still with purulent drainage may need to drain replaced or revised it does not look like it could come out at this time (5) DVT prophylaxis Current Visit: No Status: Acute Continue chemical DVT prophylaxis History of Present Illness Consult date: 08/12/17 Requesting physician: Rajeev Camp Reason for consult: other Chief complaint: Low HR History of present illness: The patient is a 52-year-old gentleman who has a history of tobacco abuse and cocaine abuse who presented for a emergent evaluation of chest discomfort and pain found to have sepsis s/t peritonsillar abscess with Dima angina status post surgical drainage of the ENT. Yesterday the patient had developed bradycardia and with heart rate in the low to mid 30s and was given a dose of atropine which increases her rate to the 50s. I do not see that he was ever hypotensive related severe and however a dobutamine drip was started which was quickly weaned off when he was transferred to the ICU by the overnight covering team. Today the patient has been expressing some nausea and vomiting and he continues to have purulent discharge from the neck abscess. Past Med Surg Social Fam HX - Past Medical History Medical history: GERD, kidney stones, other (Degenerative disc disease, CAD, hyperlipidemia) Psychiatric history: no psych history - Past Surgical History Surgical History: other (Heart catheterization that showed minimal occlusion.) - Social History Smoking Status: Current every day smoker Packs per day: 0.5 Smokeless Tobacco Status: No Alcohol use: none Drug use: none - Family History Mother Hx Family Cancer: Yes (lymphoma) Father Hx Family Endocrine Disorder: Yes (DM) Medications and Allergies Doxycycline 100 mg PO BID #14 capsule 08/11/17 [Rx] 3 Allergy/AdvReac Type Severity Reaction Status Date / Time gabapentin [From Neurontin] AdvReac Nausea Verified 08/06/17 21:48 pregabalin [From Lyrica] AdvReac Nausea Verified 08/06/17 21:48 All Systems: The remainder of the systems were reviewed and are negative Physical Examination Vital Signs: Vital Signs, Last 4 Hours Temp Pulse Resp BP Pulse Ox 08/13/17 08:00 98.5 F 42 14 121/78 98 08/13/17 07:44 44 08/13/17 07:00 44 12 118/78 95 08/13/17 06:00 52 16 118/73 95 General appearance: no acute distress Eyes: nonicteric ENT: other (Purulent drainage from the right neck strain.) Neck: supple Effort: normal Auscultation: bilateral: clear Cardiovascular: other (Sinus bradycardia noted no murmur) Gastrointestinal: normoactive bowel sounds, soft, non-tender Integumentary: normal Extremities: no cyanosis, no edema, no clubbing, pink and warm, pulses normal Musculoskeletal: no deformities normal mental status, non-focal exam mood appropriate Results - Laboratory Findings CBC and BMP: 08/13/17 01:21 08/13/17 01:21 PT/INR, D-dimer PT 12.9 Seconds (9.4-12.1) H 08/06/17 20:44 Abnormal lab findings: Abnormal lab results WBC 12.9 K/mcL (4.3-11.1) H 08/13/17 01:21 RBC 3.62 M/mcL (4.19-5.50) L 08/13/17 01:21 Hgb 10.7 g/dL (12.9-16.9) L 08/13/17 01:21 Hct 31.5 % (37.5-50.1) L 08/13/17 01:21 Plt Count 423 K/mcL (140-400) H 08/13/17 01:21 Band Neutrophils % 16.0 % (0-4) H 08/09/17 04:42 Neutrophils # 9.5 K/mcL (1.6-8.9) H 08/12/17 16:45 Nucleated RBCs/100 WBC 0.4 /100 WBC (0) H 08/09/17 04:42 PT 12.9 Seconds (9.4-12.1) H 08/06/17 20:44 Sodium 135 mEq/L (136-145) L 08/13/17 01:21 Chloride 110 mEq/L (98-107) H 08/13/17 01:21 BUN 25 mg/dL (6-20) H 08/13/17 01:21 Glucose 122 mg/dL (70-105) H 08/13/17 01:21 Calcium 7.4 mg/dL (8.6-10.3) L 08/13/17 01:21 Venous Ioniz Calcium 1.11 mmol/L (1.15-1.35) L 08/13/17 01:30 Albumin 3.4 g/dL (3.5-5.7) L 08/06/17 20:54 Lipase 6 Units/L (11-82) L 08/06/17 20:54 TSH 0.278 mcIU/mL (0.340-5.600) L 08/12/17 16:45 Urine Clarity Cloudy (Clear) A 08/07/17 16:25 Urine Protein 100 mg/dL (Neg-Trace) H 08/07/17 16:25 Ur Squamous Epith Cells Many per lpf (None-Few) H 08/07/17 16:25 Urine Yeast Few per hpf (None Seen) H 08/07/17 16:25 - Microbiology Findings Microbiology Findings: Microbiology, Last 48 Hours 08/07/17 16:43 Blood Culture - Final Peripheral Venipuncture No growth. 08/07/17 14:41 Blood Culture - Final Peripheral Venipuncture No growth. 08/11/17 08:25 Wound Culture - Preliminary Neck No pathogens isolated. 08/11/17 08:25 Gram Stain - Final Neck 08/08/17 17:05 Wound Culture - Final Neck No pathogens isolated. - Clinical Findings Intake & Output: Intake & Output 08/12/17 08/13/17 08/13/17 23:59 07:59 15:59 Intake Total 1690 / 1690 400 / 400 Output Total 1075 / 1075 1150 / 1150 Balance 615 / 615 -750 / -750 Weight 73 kg Consult Discharge Plan - Plan Referrals: Salas Norman, MOTOR INSTALLER [Primary Care Provider] - Prescriptions: Doxycycline 100 mg PO BID #14 capsule
--- NOTE | 2017-08-13 10:16 | Infectious Disease Progress No ---
Date of Encounter: 08/13/17 Time of Encounter: 10:13 - Assessment and Plan (1) Sepsis Current Visit: No Status: Acute The patient had severe sepsis on admission with three SIRS criteria and LESLIE. Likely secondary to peritonsillar abscess, right neck abscess, and submental abscess. Improved. Afebrile since 08/10/17 and WBC trending down. Blood cultures drawn x 2 sets 08/07/17 are negative. Qualifiers: Sepsis type: sepsis due to unspecified organism Qualified Code(s): A41.9 - Sepsis, unspecified organism (2) Peritonsillar abscess Current Visit: Yes Status: Acute Location: right tonsil. ENT consulted, concern for early peritonsillar abscess given the imaging findings. Per ENT, likely early peritonsillar abscess. Status post bedside I & D by Dr. Rodrigues 08/07/17. No cultures were obtained due to lack of pus. Repeat CT of the head and neck 08/08/17 showed left frontal, maxillary, and ethmoid sinusitis and persistent enlargement of the right palatine tonsil consistent with tonsillitis. It also showed edema in the right parapharyngeal fat and fullness of the right nasopharynx and edema of the epiglottis, aryepiglottic forms, and piriform sinuses, worse since prior examination. Worsening fluid attenuation in the submandibular region with new areas of hypoattenuation in the left submandibular gland and surrounding the right submandibular gland noted, concerning for worsening phlegmon or abscess. There was also noted to be new fluid attenuation area adjacent to the right carotid sheath, reflective of phlegmon or developing abscess. UTS of the head/neck 08/08/17 showed a 3.4cm complex and heterogenous lesion in the right upper neck, indeterminate etiology, but could be compatible with peritonsillar abscess vs. salivary gland. Status post I & D right peritonsillar, submental, and right neck abscesses by Dr. Rodrigues. Operative note reviewed. Gross purulence noted intra-op. Cultures are negative, but gram stain positive for many GPC and many GNDP. Strep screen negative. Clinically, the patient appears markedly improved since I saw him on Sunday. He continues to have a large amount of pus draining from around the drain tube. Will await further recommendations from the ENT team, but may need to consider re-imaging to make sure the abscess hasn't re-collected. Continue clindamycin 900mg IV Q8H. Continue Vancomycin IV. Pharmacy to dose. Goal trough ~15. Vanc trough 10. Continue Zosyn 3.375 grams IV Q8H. Duration of treatment depends on the clinical picture. Monitor renal function and dose-adjust antibiotics. (3) Neck abscess Current Visit: Yes Status: Acute Location: Right neck. Status post operative I & D 08/08/[address] Rodrigues. Causative organism unclear. Cultures are negative. Continue antibiotics as above. (4) Submental abscess Current Visit: Yes Status: Acute Location: Right neck. Status post operative I & D 08/08/[address] Rodrigues. Causative organism unclear. Cultures are negative. Continue antibiotics as above. (5) Sinusitis Current Visit: Yes Status: Acute Location: Left ethmoid, frontal, and maxillary per CT head. Causative organism unclear. Continue antibiotics as above. Qualifiers: Sinusitis location: unspecified location Chronicity: acute Recurrence: non-recurrent Qualified Code(s): J01.90 - Acute sinusitis, unspecified (6) LESLIE (acute kidney injury) Current Visit: Yes Status: Acute Etiology unclear: Post-infectious vs. prerenal vs. post-obstructive vs. other. RP UTS showed no definite evidence of intrarenal stones or hydronephrosis, but did show evidence of extensive debris in the bladder and significant post-void residual. Resolved. Continue to trend. Strict I's and O's. Avoid nephrotoxins. Dose-adjust antibiotics. (7) Dysuria Current Visit: No Status: Acute Etiology unclear. Patient reports improvement. UA normal. (8) Chest pain Current Visit: Yes Status: Acute Etiology unclear. Troponins negative x 3. Further workup and management per the primary team. Qualifiers: Chest pain type: unspecified Qualified Code(s): R07.9 - Chest pain, unspecified (9) History of drug use Current Visit: Yes Status: Acute HIV and Hepatitis C antibody nonreactive. (10) Tobacco abuse Current Visit: No Status: Chronic (11) Oral thrush Current Visit: Yes Status: Acute Likely secondary to antibiotic use. Start magic mouthwash with Nystatin. - Subjective Interval history: Patient seen and examined. Weekend notes reviewed. No acute events noted overnight. Patient became bradycardic over the weekend and was transferred to ICU and dobutamine was started. Clinically, the patient appears improved from when I saw him Sunday. Dobutamine is off this morning. The patient reports he feels better overall, but continues to have some neck, throat, and bilateral ear pain. He also complains of oral pain, particularly at the base of his tongue on the right side. Denies fevers, chills, or rigors. Reports increased pain with swallowing, but denies airway compromise. Reports intermittent chest pain and some shortness of breath at rest. Reports a cough productive of dark brown sputum. Reports nausea, denies vomiting. Ate some oatmeal for breakfast this morning. Reports improvement in dysuria and denies issues emptying his bladder. Denies back or joint pain at this time. Per nursing, patient continues to have a large amount of drainage from around the drain tubes in the right neck. Patient reports one loose stool yesterday and states overall he just feels very weak. Infect Dis PN-Objective Data - Labs CBC & Chem 7: 08/13/17 01:21 08/13/17 01:21 Labs: Laboratory Results - last 24 hr 08/12/17 08/12/17 08/12/17 13:46 16:45 16:45 WBC 12.4 H RBC 3.63 L Hgb 11.1 L Hct 32.2 L MCV 88.7 MCH 30.6 MCHC 34.5 RDW 14.3 Plt Count 385 MPV 10.5 Immature Gran % 3.1 Seg Neutrophils % 76.8 Lymphocytes % 15.2 Monocytes % 4.5 Eosinophils % 0.2 Basophils % 0.2 Neutrophils # 9.5 H Lymphocytes # 1.9 Monocytes # 0.6 Eosinophils # 0.0 Basophils # 0.0 Sodium 136 Potassium 4.0 Chloride 110 H Carbon Dioxide 21 L BUN 25 H Creatinine 1.04 Est GFR ( Amer) > 60 Est GFR (Non-Af Amer) > 60 BUN/Creatinine Ratio 24 Glucose 102 POC Glucose 97 Calculated Osmolality 287 Calcium 7.4 L Venous Ioniz Calcium Phosphorus 2.5 L Magnesium 1.7 Troponin I TSH Random Cortisol 08/12/17 08/12/17 08/12/17 16:45 16:45 20:50 WBC RBC Hgb Hct MCV MCH MCHC RDW Plt Count MPV Immature Gran % Seg Neutrophils % Lymphocytes % Monocytes % Eosinophils % Basophils % Neutrophils # Lymphocytes # Monocytes # Eosinophils # Basophils # Sodium 136 Potassium 3.9 Chloride 111 H Carbon Dioxide 20 L BUN 25 H Creatinine 1.04 Est GFR ( Amer) > 60 Est GFR (Non-Af Amer) > 60 BUN/Creatinine Ratio 24 Glucose 101 POC Glucose Calculated Osmolality 287 Calcium 7.4 L Venous Ioniz Calcium Phosphorus Magnesium Troponin I < 0.03 TSH 0.278 L Random Cortisol 08/13/17 08/13/17 08/13/17 01:21 01:21 01:21 WBC 12.9 H RBC 3.62 L Hgb 10.7 L Hct 31.5 L MCV 87.0 MCH 29.6 MCHC 34.0 RDW 14.3 Plt Count 423 H MPV 10.3 Immature Gran % Seg Neutrophils % Lymphocytes % Monocytes % Eosinophils % Basophils % Neutrophils # Lymphocytes # Monocytes # Eosinophils # Basophils # Sodium 135 L Potassium 4.7 Chloride 110 H Carbon Dioxide 23 BUN 25 H Creatinine 1.16 Est GFR ( Amer) > 60 Est GFR (Non-Af Amer) > 60 BUN/Creatinine Ratio 22 Glucose 122 H POC Glucose Calculated Osmolality 286 Calcium 7.4 L Venous Ioniz Calcium Phosphorus 3.2 Magnesium 2.0 Troponin I TSH Random Cortisol 08/13/17 08/13/17 08/13/17 01:21 01:21 01:30 WBC RBC Hgb Hct MCV MCH MCHC RDW Plt Count MPV Immature Gran % Seg Neutrophils % Lymphocytes % Monocytes % Eosinophils % Basophils % Neutrophils # Lymphocytes # Monocytes # Eosinophils # Basophils # Sodium Potassium Chloride Carbon Dioxide BUN Creatinine Est GFR ( Amer) Est GFR (Non-Af Amer) BUN/Creatinine Ratio Glucose POC Glucose Calculated Osmolality Calcium Venous Ioniz Calcium 1.11 L Phosphorus Magnesium Troponin I < 0.03 TSH Random Cortisol 0.4 Cultures: Cultures 08/07/17 16:43 Blood Culture - Final Peripheral Venipuncture No growth. 08/07/17 14:41 Blood Culture - Final Peripheral Venipuncture No growth. 08/11/17 08:25 Wound Culture - Preliminary Neck No pathogens isolated. 08/11/17 08:25 Gram Stain - Final Neck 08/08/17 17:05 Wound Culture - Final Neck No pathogens isolated. 08/07/17 16:25 Urine Culture - Final Urine,Catheterized No growth. 08/08/17 17:05 Gram Stain - Final Neck Serology 08/07/17 08/07/17 08/07/17 Range/Units 16:43 16:25 03:25 Urine Color Yellow (Yellow) Urine Clarity Cloudy A (Clear) Urine pH 5.5 (5.0-8.0) pH Units Ur Specific [place] 1.025 (1.010-1.025) Urine Protein 100 H (Neg-Trace) mg/dL Urine Glucose (UA) Normal (Normal) mg/dL Urine Ketones Negative (Negative) mg/dL Urine Blood Negative (Negative) Urine Nitrite Negative (Negative) Urine Bilirubin Negative (Negative) Urine Urobilinogen Normal (Normal) mg/dL Ur Leukocyte Esterase Negative (Negative) Urine Microscopic RBC 0-3 (0-3) per hpf Urine Microscopic WBC 0-3 (0-3) per hpf Ur Squamous Epith Cells Many H (None-Few) per lpf Urine Bacteria Few (None-Few) per hpf Hyaline Casts None Seen (None-Few) per lpf Urine Yeast Few H (None Seen) per hpf Urine Creatinine 136 mg/dL Urine Sodium 54.4 mEq/L Hepatitis C Ab Screen Nonreactive (Nonreactive) HIV Ag/Ab Combo Qual Nonreactive (Nonreactive) 08/07/17 Range/Units 03:25 Urine Color Dark Yellow (Yellow) Urine Clarity Clear (Clear) Urine pH 5.5 (5.0-8.0) pH Units Ur Specific [place] 1.021 (1.010-1.025) Urine Protein 100 H (Neg-Trace) mg/dL Urine Glucose (UA) Normal (Normal) mg/dL Urine Ketones Negative (Negative) mg/dL Urine Blood Negative (Negative) Urine Nitrite Negative (Negative) Urine Bilirubin Negative (Negative) Urine Urobilinogen Normal (Normal) mg/dL Ur Leukocyte Esterase Negative (Negative) Urine Microscopic RBC (0-3) per hpf Urine Microscopic WBC (0-3) per hpf Ur Squamous Epith Cells (None-Few) per lpf Urine Bacteria (None-Few) per hpf Hyaline Casts (None-Few) per lpf Urine Yeast (None Seen) per hpf Urine Creatinine mg/dL Urine Sodium mEq/L Hepatitis C Ab Screen (Nonreactive) HIV Ag/Ab Combo Qual (Nonreactive) Exam - Constitutional Vitals: Temp Pulse Resp BP Pulse Ox 98.5 F 56 18 117/76 96 08/13/17 08:00 08/13/17 09:00 08/13/17 09:00 08/13/17 09:00 08/13/17 09:00 General appearance: average body habitus, cooperative, no acute distress - Head Head exam: Present: atraumatic, normal inspection, normocephalic - Eye Eye exam: Present: EOMI, normal appearance, PERRL Pupils: Present: normal accommodation - ENT ENT exam: Present: mucous membranes moist Additional comments: Oral thrush noted to the tongue. - Neck Neck exam: Present: tenderness (Right neck.). Absent: normal inspection (Mild edema noted. Drain tubes noted with purulent drainage from around the drain tube sites. ) Additional comments: Erythema and edema improved. - Respiratory Respiratory exam: Present: CTAB. Absent: rales, respiratory distress, rhonchi, wheezes - Cardiovascular Cardiovascular exam: Present: RRR, +S1, +S2 - GI/Abdominal GI/Abdominal exam: Present: normal bowel sounds, soft, tenderness (generalized) . Absent: distended Additional comments: Urinal with clear yellow urine noted at the bedside. - Extremities Exam Extremities exam: Present: normal inspection. Absent: joint swelling, pedal edema, tenderness - Neurological Exam Neurological exam: Present: alert, oriented X3, no focal deficits - Psychiatric Psychiatric exam: Present: normal affect, normal mood - Skin Skin exam: Present: dry, intact, normal color, warm - VTE Documentation of Mechanical Device: Intermittent pneumatic compression device Consult Discharge Plan - Plan Referrals: Salas Norman, [employer] [Primary Care Provider] - Prescriptions: Doxycycline 100 mg PO BID #14 capsule - Attending Attestation I examined this patient and my medical decision-making was reviewed with the Resident Physician. I agree with the documented findings, disposition and treatment plan as described except to the extent set forth below. Patient seen and examined, still having copious amounts of secretions. Continues to have purulence from around his brain. He tells me he feels that us draining down his throat which makes him nauseated. I spoke with microbiology and they said it looks excellent of hemolytic strep. We will probably de-escalate. Clindamycin tomorrow continue back on Zosyn until cultures finalize and susceptibility is back. Strongly recommend repeating CT making sure there is nothing surgical so: On
--- NOTE | 2017-08-13 10:28 | Cardiology Consult Note ---
<Eduin Angel - Last Filed: 08/13/17 10:39> Date of Encounter: 08/13/17 Time of Encounter: 10:23 Assessment and Plan (1) Bradycardia Current Visit: Yes Status: Acute Sinus bradycardia in setting of acute stress--sepsis and peritonsillar abscess. Responded to atropine given yesterday. Was started on Dobumatine gtt yesterday , since turned off at ~6:30PM yesterday. HR at bedside 40s-50s. 12 hr tele AVG HR 47, SR, no significant pauses. Lowest HR 37. K 4.7, Mag 2.0. TSH 0.278--management per primary team. Patient also describes several episodes of syncope in the past, mostly with coughing episodes--suspect vasovagal. However, he also admits to drug use-- cocaine and methamphetamine use, last use about a month ago, which could be contributing to events. TTE to evaluate structure and function. No urgent need for PPM. Continue to monitor telemetry. Okay from cardiology standpoint to step down to telemetry floor. Continue to follow. (2) Chest pain Current Visit: Yes Status: Acute Admits to intermittent chest pain, worse on exertion and worse with coughing. Troponins negative. No ischemic EKG changes. Known cocaine use, reportedly last used 1 month ago. [facility] 12/2013 Minimal CAD. TTE to evaluate structure and function. Qualifiers: Chest pain type: unspecified Qualified Code(s): R07.9 - Chest pain, unspecified Discussion w patient/family: The assessment and plan as outlined above was discussed with the patient and/or family members who expressed understanding and agreement. All questions were answered. Thank you for involving us in the care of your patient. Please call with any questions. I will discuss all the above with Dr. Salazar and make changes as necessary. History of Present Illness Consult date: 08/13/17 Requesting physician: Rajeev Camp Consult reason: bradycardia Chief complaint: throat pain History of present illness: Mr. Wilson is a 52 year old male with PMHx of lumbar radiculopathy, degenerative disc disease, HLD, history of drug abuse (cocaine, methamphetamine). Patient arrived to the ED with complaints of generalized malaise, chest discomfort, throat pain that has progressively been getting worse, poor oral intake, diarrhea, fevers and chills, 20 pound weight loss over the past 2 months. Hx of cocaine and methamphetamine use, last use about a month ago. Denies history of IV drug use. Pt has been diagnosed with sepsis, peritonsillar abscess and then noted to be bradycardic. Cardiology consulted for further recs. Received atropine yesterday and responded. Was started on Dobutamine gtt yesterday, turned off at ~6:30 PM yesterday. 12 hr tele AVG HR 47, lowest HR 37. No significant pauses. Pt reports intermittent dizziness and lightheadedness over the past 6 months and reports syncopal events. [facility] 12/22/13: Minimal CAD. Past Med Surg Social Fam HX - Past Medical History Medical history: GERD, kidney stones, other (Degenerative disc disease, CAD, hyperlipidemia) Psychiatric history: no psych history - Past Surgical History Surgical History: other (Heart catheterization that showed minimal occlusion.) - Social History Smoking Status: Current every day smoker Packs per day: 0.5 Smokeless Tobacco Status: No Alcohol use: none Drug use: none - Family History Mother Hx Family Cancer: Yes (lymphoma) Father Hx Family Endocrine Disorder: Yes (DM) Medications and Allergies Doxycycline 100 mg PO BID #14 capsule 08/11/17 [Rx] 3 Allergy/AdvReac Type Severity Reaction Status Date / Time gabapentin [From Neurontin] AdvReac Nausea Verified 08/06/17 21:48 pregabalin [From Lyrica] AdvReac Nausea Verified 08/06/17 21:48 All Systems Review: The remainder of the systems were reviewed and are negative - Cardiovascular Cardiovascular: as per HPI, chest pain at rest, chest pain with exertion, dyspnea on exertion, lightheadedness, syncope - Respiratory Respiratory: dyspnea - Neurological Neurological: dizziness, syncope Physical Examination Vital Signs, Last 4 Hours Temp Pulse Resp BP Pulse Ox 08/13/17 09:00 56 18 117/76 96 08/13/17 08:00 98.5 F 42 14 121/78 98 08/13/17 07:44 44 08/13/17 07:00 44 12 118/78 95 Vital Signs Temp Pulse Resp BP Pulse Ox 08/13/17 09:00 56 18 117/76 96 08/13/17 08:00 98.5 F 42 14 121/78 98 08/13/17 07:44 44 08/13/17 07:00 44 12 118/78 95 08/13/17 06:00 52 16 118/73 95 08/13/17 05:00 42 16 95 08/13/17 04:00 98.3 F 46 16 130/78 96 08/13/17 03:00 43 16 114/72 92 08/13/17 02:00 46 16 115/79 93 08/13/17 01:00 50 16 128/78 93 08/13/17 00:00 98.8 F 48 16 119/82 95 08/12/17 23:00 68 20 121/89 94 08/12/17 22:00 49 16 124/78 94 08/12/17 21:00 48 20 125/81 97 08/12/17 20:00 54 16 106/86 96 08/12/17 19:30 57 16 128/73 95 08/12/17 19:00 99.0 F 08/12/17 18:00 68 18 118/68 98 08/12/17 17:00 45 18 140/57 98 08/12/17 16:00 98.0 F 45 18 140/81 98 08/12/17 15:00 46 18 162/84 98 08/12/17 14:00 98.5 F 43 18 147/87 98 08/12/17 11:30 41 18 139/81 94 Intake and Output 08/12/17 08/13/17 08/13/17 23:59 07:59 15:59 Intake Total 1690 / 1690 400 / 400 Output Total 1075 / 1075 1150 / 1150 Balance 615 / 615 -750 / -750 Intake: IV Fluids 1450 / 1450 400 / 400 0.9 % Sodium Chloride 1,000 ML 1000 / 1000 @ 150 mls/hr IVC .Q6H40M [facility] Rx #:[id number] DOBUTamine Premix 250 MG/250 ML 0 / 0 250 mg In 250 ml @ 2.5 MCG/KG/ MIN 9.975 mls/hr IVC .Q24H [facility] Rx#:[id number] Cleocin Premix 900 MG/50 ML 900 50 / 50 50 / 50 mg In 50 ml @ 50 mls/hr IVPB Q8H [facility] Rx#:[id number] Magnesium Sulfate Premix 2gm/ 50 / 50 50mL 2 gm In 50 ml @ 50 mls/hr IVPB Q6H PRN Rx#:[id number] Zosyn 3.375 GM In 0.9 % Sodium 100 / 100 100 / 100 Chloride (Mini-Bag +) 100 ML @ 25 mls/hr IVPB Q8HR [facility] Rx#: [id number] Vancocin 1,000 MG In 0.9 % 250 / 250 250 / 250 Sodium Chloride 250 ML @ 167 mls/hr IVPB Q12H [facility] Rx#: [id number] Oral 240 / 240 Output: Urine 475 / 475 1150 / 1150 Catheter 600 / 600 Other: Meal Dinner Percent of Meal Consumed 75% Weight 73 kg Patient Weight 08/13/17 23:59 Weight 73 kg General: Conversant, No Apparent Distress HEENT: Other (peritonsillar abscess) Neck: No JVD, Normal carotid pulses Cardiac: Reg Rate and Rhythm, Normal S1 and S2, No Murmur Lungs: Normal Breath Sounds, No Wheeze, Rales, Rhonchi Neuro: Alert and responsive, No focal deficits noted Abdomen: Soft, Non-Tender Skin: No rashes noted on visualized skin Musculoskeletal: No Chest Wall Tenderness Extremities: No Clubbing, No Cyanosis, No Edema, Normal Pulses Results 08/13/17 01:21 08/13/17 01:21 Lab Results 08/12/17 08/12/17 08/12/17 16:45 16:45 16:45 WBC 12.4 H Hgb 11.1 L Hct 32.2 L Plt Count 385 Sodium 136 136 Potassium 4.0 3.9 Chloride 110 H 111 H Carbon Dioxide 21 L 20 L BUN 25 H 25 H Creatinine 1.04 1.04 Glucose 102 101 Calcium 7.4 L 7.4 L Magnesium 1.7 Troponin I TSH 08/12/17 08/12/17 08/13/17 16:45 20:50 01:21 WBC 12.9 H Hgb 10.7 L Hct 31.5 L Plt Count 423 H Sodium Potassium Chloride Carbon Dioxide BUN Creatinine Glucose Calcium Magnesium Troponin I < 0.03 TSH 0.278 L 08/13/17 08/13/17 08/13/17 01:21 01:21 01:21 WBC Hgb Hct Plt Count Sodium 135 L Potassium 4.7 Chloride 110 H Carbon Dioxide 23 BUN 25 H Creatinine 1.16 Glucose 122 H Calcium 7.4 L Magnesium 2.0 Troponin I < 0.03 TSH Short CBC 08/13/17 08/12/17 Range/Units 01:21 16:45 WBC 12.9 H 12.4 H (4.3-11.1) K/mcL Hgb 10.7 L 11.1 L (12.9-16.9) g/dL Hct 31.5 L 32.2 L (37.5-50.1) % Plt Count 423 H 385 (140-400) K/mcL Neutrophils # 9.5 H (1.6-8.9) K/mcL BMP 08/13/17 08/12/17 08/12/17 Range/Units 01:21 16:45 16:45 Sodium 135 L 136 136 (136-145) mEq/L Potassium 4.7 3.9 4.0 (3.5-5.1) mEq/L Chloride 110 H 111 H 110 H (98-107) mEq/L Carbon Dioxide 23 20 L 21 L (23-29) mEq/L BUN 25 H 25 H 25 H (6-20) mg/dL Creatinine 1.16 1.04 1.04 (0.70-1.30) mg/dL Glucose 122 H 101 102 (70-105) mg/dL Calcium 7.4 L 7.4 L 7.4 L (8.6-10.3) mg/dL Cardiac Enzymes 08/13/17 08/12/17 Range/Units 01:21 20:50 Troponin I < 0.03 < 0.03 (< 0.04) ng/mL Active Medications Acetaminophen (Tylenol) 650 mg PO Q6HR PRN PRN Reason: Mild Pain/Fever Stop: 02/06/18 01:01 Last Admin: 08/09/17 08:10 Dose: 650 mg Dexamethasone (Decadron) 4 mg IVP BID [facility] Stop: 02/09/18 21:01 Last Admin: 08/13/17 07:33 Dose: 4 mg Heparin Sodium (Porcine) (Heparin) 5,000 unit SQ Q12HCO [facility] Stop: 02/06/18 06:01 Last Admin: 08/13/17 06:04 Dose: 5,000 unit Clindamycin Phosphate/Dextrose (Cleocin Premix 900 Mg/50 Ml) 900 mg in 50 mls @ 50 mls/hr IVPB Q8H [facility] Stop: 02/07/18 19:01 Last Infusion: 08/13/17 07:20 Dose: Infused Piperacillin Sod/Tazobactam (Sod 3.375 gm/ Sodium Chloride) 100 mls @ 25 mls/ hr IVPB Q8HR [facility] Stop: 02/09/18 16:01 Last Admin: 08/13/17 07:33 Dose: 25 mls/hr Vancomycin HCl 1,000 mg/ (Sodium Chloride) 250 mls @ 167 mls/hr IVPB Q12H [facility] PRN Reason: Protocol Stop: 02/10/18 14:01 Last Infusion: 08/13/17 03:58 Dose: Infused Dobutamine HCl/Dextrose (Dobutamine Premix 250 Mg/250 Ml) 250 mg in 250 mls @ 9.975 mls/hr IVC .Q24H [facility]; 2.5 MCG/KG/MIN PRN Reason: Protocol Stop: 02/11/18 13:16 Last Titration: 08/12/17 19:37 Dose: 0 mcg/kg/min, 0 mls/hr Calcium Gluconate 1,000 mg/ (Sodium Chloride) 110 mls @ 220 mls/hr IVPB Q6HR PRN PRN Reason: Hypocalcemia Stop: 02/11/18 16:28 Magnesium Sulfate (Magnesium Sulfate Premix 2gm/50ml) 2 gm in 50 mls @ 50 mls/ hr IVPB Q6H PRN PRN Reason: Hypomagnesemia Stop: 02/11/18 16:28 Last Infusion: 08/12/17 22:13 Dose: Infused Potassium Chloride (Potassium Chloride 10 Meq/100ml) 10 meq in 100 mls @ 100 mls/hr IVPB Q1H PRN PRN Reason: Potassium less than 4 Stop: 02/11/18 16:28 Sodium Phosphate 30 mmol/ (Sodium Chloride) 260 mls @ 42 mls/hr IVPB Q12H PRN PRN Reason: Hypophosphatemia Stop: 02/11/18 16:28 Sodium Chloride (0.9 % Sodium Chloride) 1,000 mls @ 75 mls/hr IVC .[id number] [facility] Stop: 02/11/18 16:29 Last Admin: 08/12/17 20:55 Dose: 75 mls/hr Lactobacillus Acidophilus/Rhamnosus (Culturelle) 2 each PO DAILY [facility] Stop: 02/12/18 10:31 Lorazepam (Ativan) 1 mg IVP Q6H PRN PRN Reason: Anxiety Stop: 02/10/18 23:16 Last Admin: 08/12/17 23:08 Dose: 1 mg Multi-Ingredient Mouthwash/Gargle (Magic Mouthwash) 10 ml PO TIDAC [facility] Stop: 02/12/18 11:31 Multi-Ingredient Mucositis [place] (Chloraseptic) 2 spray MM QID PRN PRN Reason: Sore Throat Stop: 02/06/18 00:29 Last Admin: 08/10/17 07:25 Dose: 2 spray Naloxone HCl (Narcan) 0.4 mg IVP Q2MIN PRN PRN Reason: SEE COMMENTS Stop: 02/06/18 01:01 Nicotine (Nicoderm) 14 mg TD DAILY PRN; Protocol PRN Reason: nicotine cravin Stop: 02/06/18 09:01 Ondansetron HCl (Zofran) 4 mg IVP Q6HR PRN; Protocol PRN Reason: Nausea Stop: 02/11/18 19:34 Last Admin: 08/12/17 19:51 Dose: 4 mg Oxycodone HCl (Oxycodone Oral Conc) 10 mg SL Q4H PRN; Protocol PRN Reason: severe pain Stop: 02/07/18 08:10 Last Admin: 08/13/17 06:13 Dose: 10 mg Potassium Chloride (Potassium Chloride) 40 meq PO DAILY PRN PRN Reason: Hypokalemia Stop: 02/11/18 16:28 Last Admin: 08/12/17 20:25 Dose: 40 meq Promethazine HCl (Phenergan) 12.5 mg IVP Q6HR PRN PRN Reason: Nausea And Vomiting Stop: 02/08/18 08:19 Last Admin: 08/11/17 22:13 Dose: 12.5 mg Throat Lozenges (Cepacol Sore Throat Lozenge) 1 each MM Q2H PRN PRN Reason: Sore Throat Stop: 02/06/18 00:25 Last Admin: 08/07/17 06:02 Dose: 1 each - Imaging and Cardiology Cardiac cath: report reviewed - EKG Interpretation EKG results cardiology: personally reviewed, other (12 hr tele AVG HR 47, sinus rhythm, lowest HR 37. No significant pauses or arrhythmias.) Consult Discharge Plan - Plan Referrals: Salas Norman, LUMBER STRAIGHTENER [Primary Care Provider] - Prescriptions: Doxycycline 100 mg PO BID #14 capsule <Libia Salazar - Last Filed: 08/13/17 12:14> Date of Encounter: 08/13/17 - Attending Attestation 52 YOM with h/o polysubstance abuse presents with sepsis found to have bradycardia. Seems bradycardia is baseline without any conduction abnormalitites noted on telemetry. Complains of episodes of syncope in the past 6 months. [facility] 2014 unremarkable with negative cardiac markers. No further inpatient testing, patient can have an OP event monitor and follow up with EP. Assessment and Plan Discussion w patient/family: The assessment and plan as outlined above was discussed with the patient and/or family members who expressed understanding and agreement. All questions were answered. Thank you for involving us in the care of your patient. Please call with any questions. History of Present Illness History of present illness: Mr. Wilson is a 52 year old male All Systems Review: The remainder of the systems were reviewed and are negative Physical Examination Vital Signs, Last 4 Hours Temp Pulse Resp BP Pulse Ox 08/13/17 11:37 98.2 F 08/13/17 11:00 46 16 135/88 97 08/13/17 10:00 44 14 140/92 98 08/13/17 09:00 56 18 117/76 96 Results 08/13/17 01:21 08/13/17 01:21 Lab Results 08/12/17 08/12/17 08/12/17 16:45 16:45 16:45 WBC 12.4 H Hgb 11.1 L Hct 32.2 L Plt Count 385 Sodium 136 136 Potassium 4.0 3.9 Chloride 110 H 111 H Carbon Dioxide 21 L 20 L BUN 25 H 25 H Creatinine 1.04 1.04 Glucose 102 101 Calcium 7.4 L 7.4 L Magnesium 1.7 Troponin I TSH 08/12/17 08/12/17 08/13/17 16:45 20:50 01:21 WBC 12.9 H Hgb 10.7 L Hct 31.5 L Plt Count 423 H Sodium Potassium Chloride Carbon Dioxide BUN Creatinine Glucose Calcium Magnesium Troponin I < 0.03 TSH 0.278 L 08/13/17 08/13/17 08/13/17 01:21 01:21 01:21 WBC Hgb Hct Plt Count Sodium 135 L Potassium 4.7 Chloride 110 H Carbon Dioxide 23 BUN 25 H Creatinine 1.16 Glucose 122 H Calcium 7.4 L Magnesium 2.0 Troponin I < 0.03 TSH
[2017-08-13] MEDS ORDERED: Lactobacillus 1 EACH CAP.SPRINK PO SCH (10:30)
[2017-08-13] MEDS ORDERED: Magic Mouthwash 10 ML UD Cup PO SCH (11:30)
--- NOTE | 2017-08-13 11:41 | ENT - Progress Note ---
Date of Encounter: 08/13/17 Time of Encounter: 11:38 - Assessment and Plan (1) Neck abscess Current Visit: Yes Status: Acute Still actively draining purulent material. WBC is elevated now. Based on report from Dr. Fried drainage is decreased, however this morning I irrigated the wound through the drain with sterile saline and I will continue to do this daily to help speed resolution. if no significant decrease in drainage and/or if WBC remains elevated will consider repeat neck CT with contrast. (2) Submental abscess Current Visit: Yes Status: Acute Drain was removed yesterday. neck and submandibular area is soft to palpation. floor of mouth is soft. Subjective Patient reports: no new complaints (I am taking over care of this patient from Dr. Rodrigues. Based on review of the record and discussion with Dr. Rodrigues, he continues to clinically improve, however right neck drain still actively draining purulence. transferred to ICU due to bradycardia, which responded to atropine and dobutamine (both of which are no longer being given). appreciate recommendations from cardiology. appreciate continued input from ID. ) Objective Initial Vital Signs Temp Pulse Resp BP Pulse Ox 100.5 F H 94 16 123/83 98 08/06/17 20:20 08/06/17 20:20 08/06/17 20:20 08/06/17 20:20 08/06/17 20:20 - General physical appearance well developed, no distress - Eyes normal ocular movement - ENT normal pinna, normal nares - Neck no masses, trachea midline, no deviated trachea - Respiratory normal expansion (right submental drain removed yesterday, right neck drain still draining copious amounts of purulent material however neck is soft, peritonsillar I&D site is closed and not draining), normal respiratory effort - Labs 08/13/17 01:21 08/13/17 01:21 Diabetes panel 08/12/17 08/12/17 08/13/17 Range/Units 16:45 16:45 01:21 Sodium 136 136 135 L (136-145) mEq/L Potassium 4.0 3.9 4.7 (3.5-5.1) mEq/L Chloride 110 H 111 H 110 H (98-107) mEq/L Carbon Dioxide 21 L 20 L 23 (23-29) mEq/L BUN 25 H 25 H 25 H (6-20) mg/dL Creatinine 1.04 1.04 1.16 (0.70-1.30) mg/dL Glucose 102 101 122 H (70-105) mg/dL Calcium 7.4 L 7.4 L 7.4 L (8.6-10.3) mg/dL Thyroid panel 08/12/17 Range/Units 16:45 TSH 0.278 L (0.340-5.600) mcIU/mL Calcium panel 08/12/17 08/12/17 08/13/17 Range/Units 16:45 16:45 01:21 Calcium 7.4 L 7.4 L 7.4 L (8.6-10.3) mg/dL Phosphorus 2.5 L (2.7-4.5) mg/dL 08/13/17 Range/Units 01:21 Calcium (8.6-10.3) mg/dL Phosphorus 3.2 (2.7-4.5) mg/dL Pituitary panel 08/12/17 08/12/17 08/12/17 Range/Units 16:45 16:45 16:45 Sodium 136 136 (136-145) mEq/L Potassium 4.0 3.9 (3.5-5.1) mEq/L Chloride 110 H 111 H (98-107) mEq/L Carbon Dioxide 21 L 20 L (23-29) mEq/L BUN 25 H 25 H (6-20) mg/dL Creatinine 1.04 1.04 (0.70-1.30) mg/dL Glucose 102 101 (70-105) mg/dL Calcium 7.4 L 7.4 L (8.6-10.3) mg/dL TSH 0.278 L (0.340-5.600) mcIU/mL 08/13/17 Range/Units 01:21 Sodium 135 L (136-145) mEq/L Potassium 4.7 (3.5-5.1) mEq/L Chloride 110 H (98-107) mEq/L Carbon Dioxide 23 (23-29) mEq/L BUN 25 H (6-20) mg/dL Creatinine 1.16 (0.70-1.30) mg/dL Glucose 122 H (70-105) mg/dL Calcium 7.4 L (8.6-10.3) mg/dL TSH (0.340-5.600) mcIU/mL Adrenal panel 08/12/17 08/12/17 08/13/17 Range/Units 16:45 16:45 01:21 Sodium 136 136 135 L (136-145) mEq/L Potassium 4.0 3.9 4.7 (3.5-5.1) mEq/L Chloride 110 H 111 H 110 H (98-107) mEq/L Carbon Dioxide 21 L 20 L 23 (23-29) mEq/L BUN 25 H 25 H 25 H (6-20) mg/dL Creatinine 1.04 1.04 1.16 (0.70-1.30) mg/dL Glucose 102 101 122 H (70-105) mg/dL Calcium 7.4 L 7.4 L 7.4 L (8.6-10.3) mg/dL - VTE Documentation of Mechanical Device: Intermittent pneumatic compression device Consult Discharge Plan - Plan Referrals: Salas Norman, SADDLE MECHANIC [Primary Care Provider] - Prescriptions: Doxycycline 100 mg PO BID #14 capsule
[2017-08-13] MEDS: Acetaminophen 325 MG TABLET PO PRN (11:42)
[2017-08-13] MEDS: 0.9 % Sodium Chloride 1,000 ML IVC SCH ×2 (11:53→20:29)
--- NOTE | 2017-08-13 13:15 | Electrocardiograph Report ---
[address] [place], [place] [address] Test Date: 2017-08-12 Pat Name: Lincoln Wilson Department: 109 Room: [facility] Gender: M Salt Grinder: : 1965 Requested By: Marcello Hernandez Order Number: [id number] Reading MD: Jesus Melvin Measurements Intervals [place] Rate: 59 P: 43 IA: 124 QRS: 27 QRSD: 108 T: 31 QT: 450 QTc: 449 Interpretive Statements SINUS BRADYCARDIA INDETERMINATE AXIS Electronically Signed On 08-13-2017 10:20:26 EDT by Jesus Melvin
--- NOTE | 2017-08-13 13:15 | Electrocardiograph Report ---
[address] [place], [place] [address] Test Date: 2017-08-12 Pat Name: Lincoln Wilson Department: 115 Room: [facility] Gender: M Animal Care Specialist: LEANN : 1965 Requested By: Rajeev Camp Order Number: [id number] Reading MD: Jesus Melvin Measurements Intervals [place] Rate: 45 P: NE: 0 QRS: 38 QRSD: 106 T: 32 QT: 490 QTc: 445 Interpretive Statements SINUS BRADYCARDIA Electronically Signed On 08-13-2017 10:19:05 EDT by Jesus Melvin
[2017-08-13] MEDS: Ondansetron 4 MG/2 ML VIAL IVP PRN ×2 (15:50→20:40)
[2017-08-13 16:32] LABS: BUN/Creatinine Ratio 21 (6-26); Blood Urea Nitrogen 24 mg/dL (6-20); Calcium 7.6 mg/dL (8.6-10.3); Carbon Dioxide 25 mEq/L (23-29); Chloride 106 mEq/L (98-107); Glucose 142 mg/dL (70-105); Osmolality,Calculated 284 (280-300); Potassium 4.2 mEq/L (3.5-5.1); Sodium 134 mEq/L (136-145); eGFR For African Americans > 60 (> 60); eGFR For Non-African Americans > 60 (> 60)
[2017-08-13] MEDS ORDERED: Naloxone 0.4 MG/ML INJ IVP PRN (16:34)
[2017-08-13] MEDS ORDERED: Nicotine 14 MG PATCH.TD24 TD PRN (16:34)
[2017-08-13] MEDS ORDERED: Chloraseptic Spray 177 ML BOTTLE MM PRN (16:34)
[2017-08-13] MEDS ORDERED: Acetaminophen 325 MG TABLET PO PRN (16:34)
[2017-08-13] MEDS: *HR* Promethazine 25 MG/ML VIAL IVP PRN (23:51)
[2017-08-14] MEDS: Clindamycin 900 MG/50 ML 900 MG/50 ML IV.SOLN IVPB SCH ×2 (03:18→10:53)
[2017-08-14] MEDS: *HR* Heparin 5,000 UNIT/ML VIAL SQ SCH ×2 (05:37→17:23)
[2017-08-14] MEDS: OXYCODONE Oral CONC 10 MG/0.5 ML ORAL.SYG SL PRN ×3 (07:48→20:10)
[2017-08-14] MEDS: Dexamethasone 4 MG/ML VIAL IVP SCH ×2 (07:52→20:22)
[2017-08-14] MEDS: Piperacillin/Tazobactam 3.375 GM in 0.9 % Sodium Chloride Mini Bag 100 ML IVPB SCH (07:52)
[2017-08-14] MEDS: Lactobacillus 1 EACH CAP.SPRINK PO SCH (07:53)
[2017-08-14] MEDS: Magic Mouthwash 10 ML UD Cup PO SCH ×3 (07:53→16:13)
[2017-08-14] MEDS: 0.9 % Sodium Chloride 1,000 ML IVC SCH (07:53)
[2017-08-14] MEDS: Ondansetron 4 MG/2 ML VIAL IVP PRN ×3 (07:58→23:53)
--- NOTE | 2017-08-14 08:08 | ENT - Progress Note ---
Date of Encounter: 08/14/17 Time of Encounter: 08:04 - Assessment and Plan (1) Neck abscess Current Visit: Yes Status: Acute drainage is less. still afebrile. although WBC elevated, could be due to steroids. I will continue saline irrigations and hopefully pull the drain in 1- 2 days if he continues to improve. (2) Submental abscess Current Visit: Yes Status: Acute neck and submandibular area is soft to palpation. floor of mouth is soft. Subjective Narrative: POD 6 s/p I&D of right peritonsillar, submental and parapharyngeal/cervical abscess. towed to telemetry floor from ICU. cx shows Strep anginosus. he continues to improve clinically, still afebrile. carmelo drain still in place in lower neck due to persistent purulent drainage, less output today. initiated saline irrigations yesterday. WBC elevated, however could be due to steroids. Objective Initial Vital Signs Temp Pulse Resp BP Pulse Ox 100.5 F H 94 16 123/83 98 08/06/17 20:20 08/06/17 20:20 08/06/17 20:20 08/06/17 20:20 08/06/17 20:20 - General physical appearance well developed, well nourished, no distress - Eyes PERRL, normal ocular movement - ENT normal pinna, normal nares, normal mucosa - Neck no masses, other (no induration. still very ttp. less purulence from drain. irrigated this AM with very little purulence expressed.) - Labs 08/13/17 01:21 08/13/17 16:01 Diabetes panel 08/13/17 Range/Units 16:01 Sodium 134 L (136-145) mEq/L Potassium 4.2 (3.5-5.1) mEq/L Chloride 106 (98-107) mEq/L Carbon Dioxide 25 (23-29) mEq/L BUN 24 H (6-20) mg/dL Creatinine 1.12 (0.70-1.30) mg/dL Glucose 142 H (70-105) mg/dL Calcium 7.6 L (8.6-10.3) mg/dL Calcium panel 08/13/17 Range/Units 16:01 Calcium 7.6 L (8.6-10.3) mg/dL Pituitary panel 08/13/17 Range/Units 16:01 Sodium 134 L (136-145) mEq/L Potassium 4.2 (3.5-5.1) mEq/L Chloride 106 (98-107) mEq/L Carbon Dioxide 25 (23-29) mEq/L BUN 24 H (6-20) mg/dL Creatinine 1.12 (0.70-1.30) mg/dL Glucose 142 H (70-105) mg/dL Calcium 7.6 L (8.6-10.3) mg/dL Adrenal panel 08/13/17 Range/Units 16:01 Sodium 134 L (136-145) mEq/L Potassium 4.2 (3.5-5.1) mEq/L Chloride 106 (98-107) mEq/L Carbon Dioxide 25 (23-29) mEq/L BUN 24 H (6-20) mg/dL Creatinine 1.12 (0.70-1.30) mg/dL Glucose 142 H (70-105) mg/dL Calcium 7.6 L (8.6-10.3) mg/dL - VTE Documentation of Mechanical Device: Intermittent pneumatic compression device Consult Discharge Plan - Plan Referrals: Salas Norman, DRINK WAITER [Primary Care Provider] - Prescriptions: Doxycycline 100 mg PO BID #14 capsule
--- NOTE | 2017-08-14 08:49 | Event Note ---
Date of Encounter: 08/14/17 Time of Encounter: 08:46 - Cardiology Event Note 12 hr tele AVG HR 46, SR, lowest HR 39 bpm. Limited echo reviewed--EF preserved. Discussed with Dr. Salazar, recommends 4 week event monitor. Will order. Will coordinate outpt EP follow-up. Cardiology signing off. Reconsult PRN.
[2017-08-14 08:52] LABS: Basophils % 0.1 %; Eosinophils # 0.1 K/mcL (0.0-0.6); Eosinophils % 0.3 %; Hematocrit 33.8 % (37.5-50.1); Hemoglobin 11.5 g/dL (12.9-16.9); Lymphocytes # 2.4 K/mcL (0.6-4.6); Lymphocytes % 15.8 %; Mean Corpuscular Hemoglobin 30.3 pg (28.0-33.3); Mean Corpuscular Volume 88.9 fL (83.0-100.0); Mean Platelet Volume 10.2 fL (9.4-12.4); Monocytes # 0.8 K/mcL (0.0-1.3); Monocytes % 5.2 %; Neutrophils # 11.5 K/mcL (1.6-8.9); Platelet Count 458 K/mcL (140-400); Red Cell Distribution Width 14.4 % (11.5-14.5); Segmented Neutrophils % 76.6 %
[2017-08-14] MEDS ORDERED: Aminoglycoside Consult 1 EACH MC ONE (08:57)
[2017-08-14 09:11] LABS: BUN/Creatinine Ratio 19 (6-26); Blood Urea Nitrogen 20 mg/dL (6-20); Calcium 7.9 mg/dL (8.6-10.3); Carbon Dioxide 27 mEq/L (23-29); Chloride 105 mEq/L (98-107); Glucose 108 mg/dL (70-105); Osmolality,Calculated 287 (280-300); Potassium 4.1 mEq/L (3.5-5.1); Sodium 137 mEq/L (136-145); eGFR For African Americans > 60 (> 60); eGFR For Non-African Americans > 60 (> 60)
--- NOTE | 2017-08-14 09:42 | Infectious Disease Progress No ---
Date of Encounter: 08/14/17 Time of Encounter: 09:40 - Assessment and Plan (1) Sepsis Current Visit: No Status: Acute The patient had severe sepsis on admission with three SIRS criteria and LESLIE. Likely secondary to peritonsillar abscess, right neck abscess, and submental abscess. Improved. Afebrile since 08/10/17 and WBC elevated, but likely due to steroids. Blood cultures drawn x 2 sets 08/07/17 are negative. Qualifiers: Sepsis type: sepsis due to unspecified organism Qualified Code(s): A41.9 - Sepsis, unspecified organism (2) Peritonsillar abscess Current Visit: Yes Status: Acute Location: right tonsil. Causative organism: S. anginosis per 08/11/17 culture. ENT consulted, concern for early peritonsillar abscess given the imaging findings. Per ENT, likely early peritonsillar abscess. Status post bedside I & D by Dr. Rodrigues 08/07/17. No cultures were obtained due to lack of pus. Repeat CT of the head and neck 08/08/17 showed left frontal, maxillary, and ethmoid sinusitis and persistent enlargement of the right palatine tonsil consistent with tonsillitis. It also showed edema in the right parapharyngeal fat and fullness of the right nasopharynx and edema of the epiglottis, aryepiglottic forms, and piriform sinuses, worse since prior examination. Worsening fluid attenuation in the submandibular region with new areas of hypoattenuation in the left submandibular gland and surrounding the right submandibular gland noted, concerning for worsening phlegmon or abscess. There was also noted to be new fluid attenuation area adjacent to the right carotid sheath, reflective of phlegmon or developing abscess. UTS of the head/neck 08/08/17 showed a 3.4cm complex and heterogenous lesion in the right upper neck, indeterminate etiology, but could be compatible with peritonsillar abscess vs. salivary gland. Status post I & D right peritonsillar, submental, and right neck abscesses by Dr. Rodrigues. Operative note reviewed. Gross purulence noted intra-op. Cultures are negative, but gram stain positive for many GPC and many GNDP. Strep screen negative. Status post bedside irrigation per ENT yesterday and today. Appears to be less purulence on exam. Will continue to monitor. Clinically, the patient appears to be improving. d/c clindamycin 900mg IV Q8H. d/c Vancomycin IV. Pharmacy to dose. Goal trough ~15. Vanc trough 10. d/c Zosyn 3.375 grams IV Q8H. start unasyn 3 grams IV q6 hrs. Duration of treatment depends on the clinical picture. Monitor renal function and dose-adjust antibiotics. (3) Neck abscess Current Visit: Yes Status: Acute Location: Right neck. Status post operative I & D 08/08/[address] Rodrigues. Causative organism S. anginosus. Continue antibiotics as above. (4) Submental abscess Current Visit: Yes Status: Acute Location: Right neck. Status post operative I & D 08/08/[address] Rodrigues. Causative organism S. anginosus. Continue antibiotics as above. (5) Sinusitis Current Visit: Yes Status: Acute Location: Left ethmoid, frontal, and maxillary per CT head. Causative organism unclear. Continue antibiotics as above. Qualifiers: Sinusitis location: unspecified location Chronicity: acute Recurrence: non-recurrent Qualified Code(s): J01.90 - Acute sinusitis, unspecified (6) LESLIE (acute kidney injury) Current Visit: Yes Status: Acute Etiology unclear: Post-infectious vs. prerenal vs. post-obstructive vs. other. RP UTS showed no definite evidence of intrarenal stones or hydronephrosis, but did show evidence of extensive debris in the bladder and significant post-void residual. Resolved. Continue to trend. Strict I's and O's. Avoid nephrotoxins. Dose-adjust antibiotics. (7) Dysuria Current Visit: No Status: Acute Etiology unclear. Patient reports improvement. UA normal. (8) Chest pain Current Visit: Yes Status: Resolved Etiology unclear. Troponins negative x 3. Further workup and management per the primary team. Qualifiers: Chest pain type: unspecified Qualified Code(s): R07.9 - Chest pain, unspecified (9) History of drug use Current Visit: Yes Status: Acute HIV and Hepatitis C antibody nonreactive. (10) Tobacco abuse Current Visit: No Status: Chronic (11) Oral thrush Current Visit: Yes Status: Acute Likely secondary to antibiotic use. Improved. Continue magic mouthwash with Nystatin. (12) Bradycardia Current Visit: Yes Status: Acute Sinus bradycardia. Etiology unclear. Cardiology consulted and following. - Subjective Interval history: Patient seen and examined. No acute events noted overnight. Patient states overall he feels like he is continuing to improve. Reports less pain in the right neck and right ear. Reports chills and fevers overnight. Reports shortness of breath, but denies chest pain or cough. Reports nausea with vomiting yesterday, but none this morning. States he was able to do a little bit of breakfast. States dysuria continues to improve. Denies urinary frequency or trouble starting his urine stream. Denies any abdominal pain or back pain at this time. States oral pain seems to be improved. Denies any skin lesions. Infect Dis PN-Objective Data - Labs CBC & Chem 7: 08/14/17 08:18 08/14/17 08:18 Labs: Laboratory Results - last 24 hr 08/13/17 08/14/17 08/14/17 16:01 08:18 08:18 WBC 15.1 H RBC 3.80 L Hgb 11.5 L Hct 33.8 L MCV 88.9 MCH 30.3 MCHC 34.0 RDW 14.4 Plt Count 458 H MPV 10.2 Immature Gran % 2.0 Seg Neutrophils % 76.6 Lymphocytes % 15.8 Monocytes % 5.2 Eosinophils % 0.3 Basophils % 0.1 Neutrophils # 11.5 H Lymphocytes # 2.4 Monocytes # 0.8 Eosinophils # 0.1 Basophils # 0.0 Sodium 134 L 137 Potassium 4.2 4.1 Chloride 106 105 Carbon Dioxide 25 27 BUN 24 H 20 Creatinine 1.12 1.06 Est GFR ( Amer) > 60 > 60 Est GFR (Non-Af Amer) > 60 > 60 BUN/Creatinine Ratio 21 19 Glucose 142 H 108 H Calculated Osmolality 284 287 Calcium 7.6 L 7.9 L Cultures: Cultures 08/11/17 08:25 Wound Culture - Final Neck Streptococcus anginosus 08/07/17 16:43 Blood Culture - Final Peripheral Venipuncture No growth. 08/07/17 14:41 Blood Culture - Final Peripheral Venipuncture No growth. 08/11/17 08:25 Gram Stain - Final Neck 08/08/17 17:05 Wound Culture - Final Neck No pathogens isolated. 08/07/17 16:25 Urine Culture - Final Urine,Catheterized No growth. 08/08/17 17:05 Gram Stain - Final Neck Serology 08/07/17 08/07/17 08/07/17 Range/Units 16:43 16:25 03:25 Urine Color Yellow (Yellow) Urine Clarity Cloudy A (Clear) Urine pH 5.5 (5.0-8.0) pH Units Ur Specific [place] 1.025 (1.010-1.025) Urine Protein 100 H (Neg-Trace) mg/dL Urine Glucose (UA) Normal (Normal) mg/dL Urine Ketones Negative (Negative) mg/dL Urine Blood Negative (Negative) Urine Nitrite Negative (Negative) Urine Bilirubin Negative (Negative) Urine Urobilinogen Normal (Normal) mg/dL Ur Leukocyte Esterase Negative (Negative) Urine Microscopic RBC 0-3 (0-3) per hpf Urine Microscopic WBC 0-3 (0-3) per hpf Ur Squamous Epith Cells Many H (None-Few) per lpf Urine Bacteria Few (None-Few) per hpf Hyaline Casts None Seen (None-Few) per lpf Urine Yeast Few H (None Seen) per hpf Urine Creatinine 136 mg/dL Urine Sodium 54.4 mEq/L Hepatitis C Ab Screen Nonreactive (Nonreactive) HIV Ag/Ab Combo Qual Nonreactive (Nonreactive) 08/07/17 Range/Units 03:25 Urine Color Dark Yellow (Yellow) Urine Clarity Clear (Clear) Urine pH 5.5 (5.0-8.0) pH Units Ur Specific [place] 1.021 (1.010-1.025) Urine Protein 100 H (Neg-Trace) mg/dL Urine Glucose (UA) Normal (Normal) mg/dL Urine Ketones Negative (Negative) mg/dL Urine Blood Negative (Negative) Urine Nitrite Negative (Negative) Urine Bilirubin Negative (Negative) Urine Urobilinogen Normal (Normal) mg/dL Ur Leukocyte Esterase Negative (Negative) Urine Microscopic RBC (0-3) per hpf Urine Microscopic WBC (0-3) per hpf Ur Squamous Epith Cells (None-Few) per lpf Urine Bacteria (None-Few) per hpf Hyaline Casts (None-Few) per lpf Urine Yeast (None Seen) per hpf Urine Creatinine mg/dL Urine Sodium mEq/L Hepatitis C Ab Screen (Nonreactive) HIV Ag/Ab Combo Qual (Nonreactive) - Impressions Impressions Echocardiogram Limited Views 08/13/17 13:00 Impressions: LVEF 60-65%. Normal LV chamber size, wall thickness and function. Normal right ventricular structure and function. Limited study, valves were not assessed. Left Ventricular Wall Motion: Rest Echo Findings All wall segments showed normal motion. Findings: Study Quality * Technically adequate exam. ECG Findings * Normal sinus rhythm. Left Ventricle * LVEF 60-65%. * Normal LV chamber size, wall thickness and function. Right Ventricle * Normal right ventricular structure and function. Left Atrium * Mildly dilated left atrium. Right Atrium * Normal right atrial size. Aorta * Normally sized aortic root. Pericardium * The pericardium appears normal. IVC * Normal IVC dimensions and inspiratory collapse. Exam - Constitutional Vitals: Temp Pulse Resp BP Pulse Ox 98.4 F 59 18 112/63 96 08/14/17 06:28 08/14/17 06:28 08/14/17 06:28 08/14/17 06:28 08/14/17 06:28 General appearance: average body habitus, cooperative, no acute distress - Head Head exam: Present: atraumatic, normal inspection, normocephalic - Eye Eye exam: Present: EOMI, normal appearance, PERRL Pupils: Present: normal accommodation - ENT ENT exam: Present: mucous membranes moist Additional comments: Oral thrush plaques improved. - Neck Neck exam: Absent: normal inspection Additional comments: Bulky gauze dressing noted to the right lateral neck. Scant amount of purulent drainage noted. Drain remains in place. Erythema and edema are improved. Tenderness improved. - Respiratory Respiratory exam: Present: CTAB. Absent: rales, respiratory distress, rhonchi, wheezes - Cardiovascular Cardiovascular exam: Present: bradycardia, +S1, +S2. Absent: irregular rhythm - GI/Abdominal GI/Abdominal exam: Present: normal bowel sounds, soft. Absent: distended, tenderness - Extremities Exam Extremities exam: Present: normal inspection. Absent: joint swelling, pedal edema, tenderness - Neurological Exam Neurological exam: Present: alert, oriented X3, no focal deficits - Psychiatric Psychiatric exam: Present: normal affect, normal mood - Skin Skin exam: Present: dry, intact, normal color, warm - VTE Documentation of Mechanical Device: Intermittent pneumatic compression device Consult Discharge Plan - Plan Referrals: Salas Norman CNP [Primary Care Provider] - Prescriptions: Doxycycline 100 mg PO BID #14 capsule - Attending Attestation I examined this patient and my medical decision-making was reviewed with the Resident Physician. I agree with the documented findings, disposition and treatment plan as described except to the extent set forth below.
[2017-08-14] MEDS: *HR* Promethazine 25 MG/ML VIAL IVP PRN ×2 (11:58→20:22)
[2017-08-14 16:52] LABS: BUN/Creatinine Ratio 22 (6-26); Blood Urea Nitrogen 24 mg/dL (6-20); Calcium 7.8 mg/dL (8.6-10.3); Carbon Dioxide 26 mEq/L (23-29); Chloride 105 mEq/L (98-107); Glucose 120 mg/dL (70-105); Osmolality,Calculated 289 (280-300); Potassium 4.5 mEq/L (3.5-5.1); Sodium 137 mEq/L (136-145); eGFR For African Americans > 60 (> 60); eGFR For Non-African Americans > 60 (> 60)
[2017-08-14] MEDS: Ampicillin/Sulbactam 3,000 MG in 0.9 % Sodium Chloride Mini Bag 100 ML IVPB SCH ×2 (17:23→23:58)
[2017-08-14] MEDS: *HR* LORazepam 2 MG/ML VIAL IVP PRN (23:53)
[2017-08-15 02:11] LABS: Basophils % 0.2 %; Eosinophils % 0.2 %; Hematocrit 31.7 % (37.5-50.1); Immature Granulocytes % 2.3 % (0-4); Lymphocytes # 1.6 K/mcL (0.6-4.6); Lymphocytes % 9.6 %; Mean Corpuscular HGB Conc 34.7 g/dL (31.6-35.5); Mean Corpuscular Hemoglobin 30.6 pg (28.0-33.3); Mean Corpuscular Volume 88.1 fL (83.0-100.0); Mean Platelet Volume 10.4 fL (9.4-12.4); Monocytes # 0.6 K/mcL (0.0-1.3); Monocytes % 3.7 %; Neutrophils # 13.8 K/mcL (1.6-8.9); Nucleated Red Blood Cells 0.2 /100 WBC (0); Platelet Count 438 K/mcL (140-400); Red Cell Distribution Width 14.4 % (11.5-14.5)
[2017-08-15 02:47] LABS: Triiodothyronine (T3) Free 1.9 pg/mL (2.50-3.90)
[2017-08-15] MEDS: Ampicillin/Sulbactam 3,000 MG in 0.9 % Sodium Chloride Mini Bag 100 ML IVPB SCH ×4 (06:34→23:36)
[2017-08-15] MEDS: *HR* Heparin 5,000 UNIT/ML VIAL SQ SCH ×2 (06:34→16:38)
--- NOTE | 2017-08-15 07:49 | ENT - Progress Note ---
Date of Encounter: 08/15/17 Time of Encounter: 07:47 - Assessment and Plan (1) Neck abscess Current Visit: Yes Status: Acute drainage was minimal. drain pulled. recommend transition to PO medication if possible. I will continue to follow while he is in the hospital. there are still sutures in the submental area and where the drain was just pulled today. patient will need a follow up in the ENT clinic next week for wound check and to have sutures removed. (2) Submental abscess Current Visit: Yes Status: Acute neck and submandibular area is soft to palpation. floor of mouth is soft. Subjective Narrative: POD 7 s/p I&D of right peritonsillar, submental and parapharyngeal/cervical abscess. towed to telemetry floor from ICU two days ago. cx shows Strep anginosus, transitioned to unasyn yesterday. he continues to improve clinically , still afebrile. carmelo drain still in place in lower neck due to persistent purulent drainage, very little output today and nurse reportedly last changed the dressing yesterday afternoon. WBC elevated, however could be due to steroids. Objective Initial Vital Signs Temp Pulse Resp BP Pulse Ox 100.5 F H 94 16 123/83 98 08/06/17 20:20 08/06/17 20:20 08/06/17 20:20 08/06/17 20:20 08/06/17 20:20 - General physical appearance no distress - Eyes PERRL, normal ocular movement - ENT normal nares, CN 2-12 grossly intact - Neck no masses, trachea midline, no lymphadectomy, no venous distension, other (very minimal purulent drainage on dressing. carmelo drain pulled this morning. ) - Labs 08/15/17 01:16 08/14/17 16:08 Diabetes panel 08/14/17 08/14/17 Range/Units 08:18 16:08 Sodium 137 137 (136-145) mEq/L Potassium 4.1 4.5 (3.5-5.1) mEq/L Chloride 105 105 (98-107) mEq/L Carbon Dioxide 27 26 (23-29) mEq/L BUN 20 24 H (6-20) mg/dL Creatinine 1.06 1.10 (0.70-1.30) mg/dL Glucose 108 H 120 H (70-105) mg/dL Calcium 7.9 L 7.8 L (8.6-10.3) mg/dL Calcium panel 08/14/17 08/14/17 Range/Units 08:18 16:08 Calcium 7.9 L 7.8 L (8.6-10.3) mg/dL Pituitary panel 08/14/17 08/14/17 Range/Units 08:18 16:08 Sodium 137 137 (136-145) mEq/L Potassium 4.1 4.5 (3.5-5.1) mEq/L Chloride 105 105 (98-107) mEq/L Carbon Dioxide 27 26 (23-29) mEq/L BUN 20 24 H (6-20) mg/dL Creatinine 1.06 1.10 (0.70-1.30) mg/dL Glucose 108 H 120 H (70-105) mg/dL Calcium 7.9 L 7.8 L (8.6-10.3) mg/dL Adrenal panel 08/14/17 08/14/17 Range/Units 08:18 16:08 Sodium 137 137 (136-145) mEq/L Potassium 4.1 4.5 (3.5-5.1) mEq/L Chloride 105 105 (98-107) mEq/L Carbon Dioxide 27 26 (23-29) mEq/L BUN 20 24 H (6-20) mg/dL Creatinine 1.06 1.10 (0.70-1.30) mg/dL Glucose 108 H 120 H (70-105) mg/dL Calcium 7.9 L 7.8 L (8.6-10.3) mg/dL - VTE Documentation of Mechanical Device: Intermittent pneumatic compression device Consult Discharge Plan - Plan Referrals: Salas Norman, JAVY [Primary Care Provider] - Prescriptions: Doxycycline 100 mg PO BID #14 capsule
[2017-08-15] MEDS: Magic Mouthwash 10 ML UD Cup PO SCH ×3 (08:37→16:37)
[2017-08-15] MEDS: Lactobacillus 1 EACH CAP.SPRINK PO SCH (08:37)
[2017-08-15] MEDS: OXYCODONE Oral CONC 10 MG/0.5 ML ORAL.SYG SL PRN (08:39)
--- NOTE | 2017-08-15 11:45 | Infectious Disease Progress No ---
Date of Encounter: 08/15/17 Time of Encounter: 11:42 - Assessment and Plan (1) Sepsis Current Visit: No Status: Acute The patient had severe sepsis on admission with three SIRS criteria and LESLIE. Likely secondary to peritonsillar abscess, right neck abscess, and submental abscess. Improved. Afebrile since 08/10/17 and WBC elevated, but likely due to steroids. Blood cultures drawn x 2 sets 08/07/17 are negative. Qualifiers: Sepsis type: sepsis due to unspecified organism Qualified Code(s): A41.9 - Sepsis, unspecified organism (2) Peritonsillar abscess Current Visit: Yes Status: Acute Location: right tonsil. Causative organism: S. anginosis per 08/11/17 culture. ENT consulted, concern for early peritonsillar abscess given the imaging findings. Per ENT, likely early peritonsillar abscess. Status post bedside I & D by Dr. Rodrigues 08/07/17. No cultures were obtained due to lack of pus. Repeat CT of the head and neck 08/08/17 showed left frontal, maxillary, and ethmoid sinusitis and persistent enlargement of the right palatine tonsil consistent with tonsillitis. It also showed edema in the right parapharyngeal fat and fullness of the right nasopharynx and edema of the epiglottis, aryepiglottic forms, and piriform sinuses, worse since prior examination. Worsening fluid attenuation in the submandibular region with new areas of hypoattenuation in the left submandibular gland and surrounding the right submandibular gland noted, concerning for worsening phlegmon or abscess. There was also noted to be new fluid attenuation area adjacent to the right carotid sheath, reflective of phlegmon or developing abscess. UTS of the head/neck 08/08/17 showed a 3.4cm complex and heterogenous lesion in the right upper neck, indeterminate etiology, but could be compatible with peritonsillar abscess vs. salivary gland. Status post I & D right peritonsillar, submental, and right neck abscesses by Dr. Rodrigues. Operative note reviewed. Gross purulence noted intra-op. Cultures are negative, but gram stain positive for many GPC and many GNDP. Strep screen negative. Status post bedside irrigation and drain was removed this morning. Appears to be less purulence on exam. Will continue to monitor. Clinically, the patient appears to be improving. Continue Unasyn 3 grams IV q6 hrs. Duration of treatment depends on the clinical picture. Will likely be able to switch to PO antibiotics on discharge. Monitor renal function and dose-adjust antibiotics. (3) Neck abscess Current Visit: Yes Status: Acute Location: Right neck. Status post operative I & D 08/08/[address] Rodrigues. Causative organism S. anginosus. Continue antibiotics as above. (4) Submental abscess Current Visit: Yes Status: Acute Location: Right neck. Status post operative I & D 08/08/[address] Rodrigues. Causative organism S. anginosus. Continue antibiotics as above. (5) Sinusitis Current Visit: Yes Status: Acute Location: Left ethmoid, frontal, and maxillary per CT head. Causative organism unclear. Continue antibiotics as above. Qualifiers: Sinusitis location: unspecified location Chronicity: acute Recurrence: non-recurrent Qualified Code(s): J01.90 - Acute sinusitis, unspecified (6) LESLIE (acute kidney injury) Current Visit: Yes Status: Resolved Etiology unclear: Post-infectious vs. prerenal vs. post-obstructive vs. other. RP UTS showed no definite evidence of intrarenal stones or hydronephrosis, but did show evidence of extensive debris in the bladder and significant post-void residual. Resolved. Continue to trend. Strict I's and O's. Avoid nephrotoxins. Dose-adjust antibiotics. (7) Dysuria Current Visit: No Status: Resolved Etiology unclear. Patient reports improvement. UA normal. (8) Chest pain Current Visit: Yes Status: Resolved Etiology unclear. Troponins negative x 3. Further workup and management per the primary team. Qualifiers: Chest pain type: unspecified Qualified Code(s): R07.9 - Chest pain, unspecified (9) History of drug use Current Visit: Yes Status: Acute HIV and Hepatitis C antibody nonreactive. (10) Tobacco abuse Current Visit: No Status: Chronic (11) Oral thrush Current Visit: Yes Status: Acute Likely secondary to antibiotic use. Improved. Continue magic mouthwash with Nystatin. (12) Bradycardia Current Visit: Yes Status: Acute Sinus bradycardia. Etiology unclear. Improved. Cardiology consulted and following. - Subjective Interval history: Patient seen and examined. No acute events noted overnight. Patient states overall he feels like he is continuing to improve. Reports increased pain in the right neck since having drain pulled this morning. Reports chills and fevers overnight. Reports nausea and reflux this morning with vomiting of stomach bile overnight. Denies shortness of breath, chest pain or cough. Has not eaten breakfast this morning. States dysuria continues to improve. Denies urinary frequency or trouble starting his urine stream. Denies any abdominal pain or back pain at this time. States oral pain seems to be improved. Denies any skin lesions. Infect Dis PN-Objective Data - Labs CBC & Chem 7: 08/15/17 01:16 08/14/17 16:08 Labs: Laboratory Results - last 24 hr 08/14/17 08/15/17 08/15/17 16:08 01:16 01:16 WBC 16.4 H RBC 3.60 L Hgb 11.0 L Hct 31.7 L MCV 88.1 MCH 30.6 MCHC 34.7 RDW 14.4 Plt Count 438 H MPV 10.4 Immature Gran % 2.3 Seg Neutrophils % 84.0 Lymphocytes % 9.6 Monocytes % 3.7 Eosinophils % 0.2 Basophils % 0.2 Neutrophils # 13.8 H Lymphocytes # 1.6 Monocytes # 0.6 Eosinophils # 0.0 Basophils # 0.0 Nucleated RBCs/100 WBC 0.2 H Sodium 137 Potassium 4.5 Chloride 105 Carbon Dioxide 26 BUN 24 H Creatinine 1.10 Est GFR ( Amer) > 60 Est GFR (Non-Af Amer) > 60 BUN/Creatinine Ratio 22 Glucose 120 H Calculated Osmolality 289 Calcium 7.8 L Free T4 0.90 Free T3 1.90 L Cultures: Cultures 08/08/17 17:05 Anaerobic Culture - Preliminary Neck Anaerobic Gram Negative Coccobacilli 08/11/17 08:25 Wound Culture - Final Neck Streptococcus anginosus 08/07/17 16:43 Blood Culture - Final Peripheral Venipuncture No growth. 08/07/17 14:41 Blood Culture - Final Peripheral Venipuncture No growth. 08/11/17 08:25 Gram Stain - Final Neck 08/08/17 17:05 Wound Culture - Final Neck No pathogens isolated. 08/07/17 16:25 Urine Culture - Final Urine,Catheterized No growth. 08/08/17 17:05 Gram Stain - Final Neck Serology 05/0808/07/17 08/07/17 Range/Units 16:43 16:25 03:25 Urine Color Yellow (Yellow) Urine Clarity Cloudy A (Clear) Urine pH 5.5 (5.0-8.0) pH Units Ur Specific [place] 1.025 (1.010-1.025) Urine Protein 100 H (Neg-Trace) mg/dL Urine Glucose (UA) Normal (Normal) mg/dL Urine Ketones Negative (Negative) mg/dL Urine Blood Negative (Negative) Urine Nitrite Negative (Negative) Urine Bilirubin Negative (Negative) Urine Urobilinogen Normal (Normal) mg/dL Ur Leukocyte Esterase Negative (Negative) Urine Microscopic RBC 0-3 (0-3) per hpf Urine Microscopic WBC 0-3 (0-3) per hpf Ur Squamous Epith Cells Many H (None-Few) per lpf Urine Bacteria Few (None-Few) per hpf Hyaline Casts None Seen (None-Few) per lpf Urine Yeast Few H (None Seen) per hpf Urine Creatinine 136 mg/dL Urine Sodium 54.4 mEq/L Hepatitis C Ab Screen Nonreactive (Nonreactive) HIV Ag/Ab Combo Qual Nonreactive (Nonreactive) 08/07/17 Range/Units 03:25 Urine Color Dark Yellow (Yellow) Urine Clarity Clear (Clear) Urine pH 5.5 (5.0-8.0) pH Units Ur Specific [place] 1.021 (1.010-1.025) Urine Protein 100 H (Neg-Trace) mg/dL Urine Glucose (UA) Normal (Normal) mg/dL Urine Ketones Negative (Negative) mg/dL Urine Blood Negative (Negative) Urine Nitrite Negative (Negative) Urine Bilirubin Negative (Negative) Urine Urobilinogen Normal (Normal) mg/dL Ur Leukocyte Esterase Negative (Negative) Urine Microscopic RBC (0-3) per hpf Urine Microscopic WBC (0-3) per hpf Ur Squamous Epith Cells (None-Few) per lpf Urine Bacteria (None-Few) per hpf Hyaline Casts (None-Few) per lpf Urine Yeast (None Seen) per hpf Urine Creatinine mg/dL Urine Sodium mEq/L Hepatitis C Ab Screen (Nonreactive) HIV Ag/Ab Combo Qual (Nonreactive) Exam - Constitutional Vitals: Temp Pulse Resp BP Pulse Ox 98.0 F 55 16 148/81 95 08/15/17 08:18 08/15/17 08:18 08/15/17 08:18 08/15/17 08:18 08/15/17 08:18 General appearance: average body habitus, cooperative, no acute distress - Head Head exam: Present: atraumatic, normal inspection, normocephalic - Eye Eye exam: Present: EOMI, normal appearance, PERRL Pupils: Present: normal accommodation - ENT ENT exam: Present: mucous membranes moist Additional comments: Oral thrush continues to improve. - Neck Additional comments: Right neck drain site with small amount of purulent drainage. No fluctuance. Erythema continues to improve. Site remains tender. - Respiratory Respiratory exam: Present: CTAB. Absent: rales, respiratory distress, rhonchi, wheezes - Cardiovascular Cardiovascular exam: Present: RRR, +S1, +S2 - GI/Abdominal GI/Abdominal exam: Present: normal bowel sounds, soft. Absent: distended, tenderness - Extremities Exam Extremities exam: Present: normal inspection. Absent: joint swelling, pedal edema, tenderness - Neurological Exam Neurological exam: Present: alert, oriented X3, no focal deficits - Psychiatric Psychiatric exam: Present: normal affect, normal mood - Skin Skin exam: Present: dry, intact, normal color, warm - VTE Documentation of Mechanical Device: Intermittent pneumatic compression device Consult Discharge Plan - Plan Referrals: Salas Norman [employer]GER [Primary Care Provider] - Prescriptions: Doxycycline 100 mg PO BID #14 capsule - Attending Attestation I examined this patient and my medical decision-making was reviewed with the Resident Physician. I agree with the documented findings, disposition and treatment plan as described except to the extent set forth below.
[2017-08-15] MEDS: *HR* OxyCODONE/APAP 5/325 TABLET PO PRN ×2 (14:30→22:10)
--- NOTE | 2017-08-15 15:42 | Internal Med Progress Note ---
Date of Encounter: 08/14/17 Time of Encounter: 13:30 (Late entry progress note) - Assessment and plan (1) Sepsis Current Visit: Yes Status: Acute Assessment and plan: Presented with low-grade fever and tachycardia with throat infection. Currently improving. Status post incision and drainage. Continue IV antibiotics. ENT and ID on board. Qualifiers: Sepsis type: Streptococcus, unspecified Qualified Code(s): A40.9 - Streptococcal sepsis, unspecified; A40 - Streptococcal sepsis (2) Tobacco abuse Current Visit: Yes Status: Chronic Assessment and plan: Continue when necessary nicotine transdermal patch. (3) LESLIE (acute kidney injury) Current Visit: Yes Status: Resolved Assessment and plan: Serum creatinine improved with IV hydration. (4) Chest pain Current Visit: Yes Status: Acute Assessment and plan: stable EKG unremarkable Qualifiers: Chest pain type: chest pain due to myocardial ischemia Ischemic chest pain type: unspecified angina pectoris type Qualified Code(s): I25.9 - Chronic ischemic heart disease, unspecified (5) Bradycardia Current Visit: Yes Status: Acute Assessment and plan: in the setting of sepsis and peritonsillar abscess; seen by Cardiology, recommend 4 week event monitor to correlate his symptoms with events; Echo shows preserved EF; signed off at this time; HR currently improved; (6) Peritonsillar abscess Current Visit: Yes Status: Acute Assessment and plan: Status post incision and drainage of right peritonsillar abscess, right neck abscess and submental abscess. ENT on board, patient improving, still has drain in place; ID on board, appreciate recommendations; wound culture grows streptococcus anginosus. Antibiotics changed from vancomycin, Zosyn and clindamycin to IV Unasyn. Continues to have leukocytosis, which is likely due to use of steroids. We will hold Decadron today. - Time Spent With Patient Total time spent is greater than 50% in coordination of care (as documented) at patient's floor/unit and/or counseling patient: - Subjective Interval history: continues to have pain and discomfort in neck; no fever/chills, chest pain or dyapnea; no nausea, vomiting, diarrhea; tolerates diet; still has drain in his neck; - Constitutional Vitals: Temp Pulse Resp BP Pulse Ox 98 F 51 16 145/79 97 08/15/17 12:08 08/15/17 12:08 08/15/17 12:08 08/15/17 12:08 08/15/17 12:08 General appearance: Present: mild distress, A&O X 3, answers questions appropriately - Respiratory Respiratory exam: Present: CTAB. Absent: accessory muscle use, rales, rhonchi, wheezes - Cardiovascular Cardiovascular exam: Present: RRR, +S1, +S2. Absent: diastolic murmur, gallop, rubs, systolic murmur - GI/Abdominal GI/Abdominal exam: Present: normal bowel sounds, soft, no peritoneal signs. Absent: distended, tenderness - Extremities Exam Extremities exam: Present: warm, radial pulses palpable and symmetrical. Absent : calf tenderness, cyanotic, pedal edema - Neurological Exam Neurological exam: Present: CN II-XII intact, oriented X3, no focal deficits. Absent: pronater drift, facial droop, speech deficit Internal Medicine: Result - Labs CBC & Chem 7: 08/15/17 01:16 08/14/17 16:08 Labs: Short CBC 08/15/17 Range/Units 01:16 WBC 16.4 H (4.3-11.1) K/mcL Hgb 11.0 L (12.9-16.9) g/dL Hct 31.7 L (37.5-50.1) % Plt Count 438 H (140-400) K/mcL Neutrophils # 13.8 H (1.6-8.9) K/mcL BMP 08/14/17 16:08 Sodium 137 Potassium 4.5 Chloride 105 Carbon Dioxide 26 BUN 24 H Creatinine 1.10 Glucose 120 H Calcium 7.8 L - ABG Interpretation ABG results: PT/INR, D-dimer PT 12.9 Seconds (9.4-12.1) H 08/06/17 20:44 - VTE Documentation of Mechanical Device: Intermittent pneumatic compression device Consult Discharge Plan - Plan Referrals: Salas Norman CNP [Primary Care Provider] - Prescriptions: Doxycycline 100 mg PO BID #14 capsule
[2017-08-15] MEDS: Ondansetron 4 MG/2 ML VIAL IVP PRN ×2 (17:43→23:48)
[2017-08-15] MEDS: *HR* Promethazine 25 MG/ML VIAL IVP PRN (19:11)
--- NOTE | 2017-08-15 21:48 | Internal Med Progress Note ---
Date of Encounter: 08/15/17 Time of Encounter: 11:30 - Assessment and plan (1) Sepsis Current Visit: Yes Status: Acute Assessment and plan: Presented with low-grade fever and tachycardia with throat infection. Currently improving. Status post incision and drainage. Continue IV antibiotics. ENT and ID on board. Qualifiers: Sepsis type: Streptococcus, unspecified Qualified Code(s): A40.9 - Streptococcal sepsis, unspecified; A40 - Streptococcal sepsis (2) Tobacco abuse Current Visit: Yes Status: Chronic (3) LESLIE (acute kidney injury) Current Visit: Yes Status: Resolved (4) Chest pain Current Visit: Yes Status: Acute Assessment and plan: stable EKG unremarkable Qualifiers: Chest pain type: chest pain due to myocardial ischemia Ischemic chest pain type: unspecified angina pectoris type Qualified Code(s): I25.9 - Chronic ischemic heart disease, unspecified (5) Bradycardia Current Visit: Yes Status: Acute Assessment and plan: in the setting of sepsis and peritonsillar abscess; seen by Cardiology, recommend 4 week event monitor to correlate his symptoms with events; Echo shows preserved EF; signed off at this time; HR currently improved; (6) Peritonsillar abscess Current Visit: Yes Status: Acute Assessment and plan: Status post incision and drainage of right peritonsillar abscess, right neck abscess and submental abscess. ENT on board, patient improving, drain removed; ID on board, appreciate recommendations- another day of IV antibiotics; wound culture grows streptococcus anginosus and Prevotella. Continue IV Unasyn. Plan for oral antibiotics at discharge. Continues to have leukocytosis, which is likely due to use of steroids. Stopped Decadron. - Time Spent With Patient Total time spent is greater than 50% in coordination of care (as documented) at patient's floor/unit and/or counseling patient: - Subjective Interval history: seems improved today; had neck drain removed by ENT; reports jaw and chin pain radiating to right ear; tolerates diet; continues to have some thin purulent discharge from the drain site; no fever/chills, vomiting but has some nausea; - Constitutional Vitals: Temp Pulse Resp BP Pulse Ox 98.2 F 53 16 129/78 98 08/15/17 19:21 08/15/17 19:21 08/15/17 19:21 08/15/17 19:21 08/15/17 19:21 General appearance: Present: A&O X 3, answers questions appropriately - Neck Neck exam general surgery: Present: supple, trachea midline. Absent: lymphadenopathy Additional comments: seropurulent drainage from chin drain site; - Respiratory Respiratory exam: Present: CTAB. Absent: accessory muscle use, rales, rhonchi, wheezes - Cardiovascular Cardiovascular exam: Present: RRR, +S1, +S2. Absent: diastolic murmur, gallop, rubs, systolic murmur - GI/Abdominal GI/Abdominal exam: Present: normal bowel sounds, soft, no peritoneal signs. Absent: distended, tenderness - Extremities Exam Extremities exam: Present: full ROM, warm, radial pulses palpable and symmetrical. Absent: calf tenderness, cyanotic, pedal edema Internal Medicine: Result - Labs CBC & Chem 7: 08/16/17 00:59 08/14/17 16:08 Labs: Short CBC 08/15/17 Range/Units 01:16 WBC 16.4 H (4.3-11.1) K/mcL Hgb 11.0 L (12.9-16.9) g/dL Hct 31.7 L (37.5-50.1) % Plt Count 438 H (140-400) K/mcL Neutrophils # 13.8 H (1.6-8.9) K/mcL - ABG Interpretation ABG results: PT/INR, D-dimer PT 12.9 Seconds (9.4-12.1) H 08/06/17 20:44 - VTE Documentation of Mechanical Device: Intermittent pneumatic compression device Consult Discharge Plan - Plan Additional Instructions: F/up with PCP in 1-2 weeks F/up with ENT at [place] in 1 week for wound check F/up with EP Cardiology in 4 weeks Finish all antibiotics even if you feel better. Go to nearest emergency room for any new or worsening symptoms. Referrals: Salas Norman CNP [Primary Care Provider] - Prescriptions: OxyCODONE/APAP 5/325 [Percocet 5/325 MG] 1 each PO Q6HR PRN 5 Days #10 tablet PRN Reason: Moderate to Severe Pain Amoxicillin/Clavulanate [Augmentin] 875 mg PO BIDWM #10 tablet Lactobacillus [Culturelle] 2 each PO DAILY #20 cap.sprink
[2017-08-15] MEDS: *HR* LORazepam 2 MG/ML VIAL IVP PRN (23:36)
[2017-08-16 01:52] LABS: Basophils % 0.3 %; Eosinophils # 0.3 K/mcL (0.0-0.6); Eosinophils % 2.2 %; Hematocrit 32.3 % (37.5-50.1); Immature Granulocytes % 1.3 % (0-4); Lymphocytes % 25.2 %; Mean Corpuscular HGB Conc 34.1 g/dL (31.6-35.5); Mean Corpuscular Hemoglobin 30.1 pg (28.0-33.3); Mean Corpuscular Volume 88.3 fL (83.0-100.0); Mean Platelet Volume 10.1 fL (9.4-12.4); Monocytes # 0.6 K/mcL (0.0-1.3); Monocytes % 5.3 %; Neutrophils # 7.9 K/mcL (1.6-8.9); Nucleated Red Blood Cells 0.3 /100 WBC (0); Platelet Count 428 K/mcL (140-400); Red Blood Count 3.66 M/mcL (4.19-5.50); Red Cell Distribution Width 14.3 % (11.5-14.5); Segmented Neutrophils % 65.7 %
[2017-08-16] MEDS: *HR* Heparin 5,000 UNIT/ML VIAL SQ SCH (06:20)
[2017-08-16] MEDS: Ampicillin/Sulbactam 3,000 MG in 0.9 % Sodium Chloride Mini Bag 100 ML IVPB SCH ×2 (06:21→12:53)
[2017-08-16] MEDS: *HR* OxyCODONE/APAP 5/325 TABLET PO PRN ×2 (06:28→12:52)
[2017-08-16] MEDS: Ondansetron 4 MG/2 ML VIAL IVP PRN ×2 (06:29→13:18)
--- NOTE | 2017-08-16 07:41 | ENT - Progress Note ---
Date of Encounter: 08/16/17 Time of Encounter: 07:38 - Assessment and Plan (1) Neck abscess Current Visit: Yes Status: Acute drainage minimal. drain pulled yesterday. persistent drainage likely due to inflammation from the drain and should stop completely now that the drain is out. until then continue to dress with gauze and keep the area clean. sutures removed today from submental and neck incision. recommend transition to PO medication and start discharge planning. I will continue to follow while he is in the hospital. patient will need a follow up in the ENT clinic sometime next week for wound check. Subjective Patient reports: no new complaints, afebrile (admitted for right [employer]/Dima's/ neck abscess s/p operative drainage on 08/08/17. submental drain removed 08/12/17 , neck drain removed yesterday (08/15/17). still some persistent drainage. sutures removed today. afebrile. WBC trending down since discontinuation of decadron.) Objective Initial Vital Signs Temp Pulse Resp BP Pulse Ox 100.5 F H 94 16 123/83 98 08/06/17 20:20 08/06/17 20:20 08/06/17 20:20 08/06/17 20:20 08/06/17 20:20 - General physical appearance no distress - Eyes PERRL, normal ocular movement - ENT normal nares, normal mucosa - Neck no masses, no bruits, trachea midline (neck incision still draining a small amount. sutures removed. ) - Labs 08/16/17 00:59 08/14/17 16:08 - VTE Documentation of Mechanical Device: Intermittent pneumatic compression device Consult Discharge Plan - Plan Referrals: Salas Norman [employer] [Primary Care Provider] - Prescriptions: Doxycycline 100 mg PO BID #14 capsule
--- NOTE | 2017-08-16 09:07 | Infectious Disease Progress No ---
Date of Encounter: 08/16/17 Time of Encounter: 09:05 - Assessment and Plan (1) Sepsis Status: Acute The patient had severe sepsis on admission with three SIRS criteria and LESLIE. Likely secondary to peritonsillar abscess, right neck abscess, and submental abscess. Improved. Afebrile since 08/10/17 and WBC trending down. Blood cultures drawn x 2 sets 08/07/17 are negative. Qualifiers: Sepsis type: Streptococcus, unspecified Qualified Code(s): A40.9 - Streptococcal sepsis, unspecified; A40 - Streptococcal sepsis (2) Peritonsillar abscess Status: Acute Location: right tonsil. Causative organism: S. anginosis and anaerobes per 08/11/17 culture. ENT consulted, concern for early peritonsillar abscess given the imaging findings. Per ENT, likely early peritonsillar abscess. Status post bedside I & D by Dr. Rodrigues 08/07/17. No cultures were obtained due to lack of pus. Repeat CT of the head and neck 08/08/17 showed left frontal, maxillary, and ethmoid sinusitis and persistent enlargement of the right palatine tonsil consistent with tonsillitis. It also showed edema in the right parapharyngeal fat and fullness of the right nasopharynx and edema of the epiglottis, aryepiglottic forms, and piriform sinuses, worse since prior examination. Worsening fluid attenuation in the submandibular region with new areas of hypoattenuation in the left submandibular gland and surrounding the right submandibular gland noted, concerning for worsening phlegmon or abscess. There was also noted to be new fluid attenuation area adjacent to the right carotid sheath, reflective of phlegmon or developing abscess. UTS of the head/neck 08/08/17 showed a 3.4cm complex and heterogenous lesion in the right upper neck, indeterminate etiology, but could be compatible with peritonsillar abscess vs. salivary gland. Status post I & D right peritonsillar, submental, and right neck abscesses by Dr. Rodrigues. Operative note reviewed. Gross purulence noted intra-op. Cultures are negative, but gram stain positive for many GPC and many GNDP. Strep screen negative. Clinically, the patient appears to be improving. Continue Unasyn 3 grams IV q6 hrs. Duration of treatment depends on the clinical picture. Will likely be able to switch to PO antibiotics on discharge, but recommend monitoring inpatient on IV antibiotics for another 24 hours prior to discharge. Monitor renal function and dose-adjust antibiotics. (3) Neck abscess Status: Acute Location: Right neck. Status post operative I & D 08/08/[address] Rodrigues. Causative organism S. anginosus and anaerobes. Continue antibiotics as above. (4) Submental abscess Status: Acute Location: Right neck. Status post operative I & D 08/08/[address] Rodrigues. Causative organism S. anginosus. Continue antibiotics as above. (5) Sinusitis Status: Acute Location: Left ethmoid, frontal, and maxillary per CT head. Causative organism unclear. Continue antibiotics as above. Qualifiers: Sinusitis location: unspecified location Chronicity: acute Recurrence: non-recurrent Qualified Code(s): J01.90 - Acute sinusitis, unspecified (6) LESLIE (acute kidney injury) Status: Resolved Etiology unclear: Post-infectious vs. prerenal vs. post-obstructive vs. other. RP UTS showed no definite evidence of intrarenal stones or hydronephrosis, but did show evidence of extensive debris in the bladder and significant post-void residual. Resolved. Continue to trend. Strict I's and O's. Avoid nephrotoxins. Dose-adjust antibiotics. (7) Chest pain Status: Resolved Etiology unclear. Troponins negative x 3. Further workup and management per the primary team. Qualifiers: Chest pain type: unspecified Qualified Code(s): R07.9 - Chest pain, unspecified (8) History of drug use Status: Acute HIV and Hepatitis C antibody nonreactive. (9) Tobacco abuse Status: Chronic (10) Oral thrush Status: Acute Likely secondary to antibiotic use. Improved. Continue magic mouthwash with Nystatin. (11) Bradycardia Status: Acute Sinus bradycardia. Etiology unclear. Resolved. Cardiology consulted and recommend outpatient event monitor with follow-up with EP. - Subjective Interval history: Patient seen and examined. No acute events noted overnight. Patient states overall he feels like he is continuing to improve. Reports pain in his bilateral ears and right neck, worse since having sutures removed this morning, but overall better. Denies fevers, chills, or rigors. Denies shortness of breath, chest pain or cough. Reports nausea, but states he ate oatmeal for breakfast this morning. States dysuria continues to improve. Denies urinary frequency or trouble starting his urine stream. Denies any abdominal pain or back pain at this time. States oral pain seems to be improved. Denies any skin lesions. Infect Dis PN-Objective Data - Labs CBC & Chem 7: 08/16/17 00:59 08/14/17 16:08 Labs: Laboratory Results - last 24 hr 08/16/17 00:59 WBC 12.0 H RBC 3.66 L Hgb 11.0 L Hct 32.3 L MCV 88.3 MCH 30.1 MCHC 34.1 RDW 14.3 Plt Count 428 H MPV 10.1 Immature Gran % 1.3 Seg Neutrophils % 65.7 Lymphocytes % 25.2 Monocytes % 5.3 Eosinophils % 2.2 Basophils % 0.3 Neutrophils # 7.9 Lymphocytes # 3.0 Monocytes # 0.6 Eosinophils # 0.3 Basophils # 0.0 Nucleated RBCs/100 WBC 0.3 H Cultures: Cultures 08/08/17 17:05 Anaerobic Culture - Final Neck Prevotella denticola 08/11/17 08:25 Wound Culture - Final Neck Streptococcus anginosus 08/07/17 16:43 Blood Culture - Final Peripheral Venipuncture No growth. 08/07/17 14:41 Blood Culture - Final Peripheral Venipuncture No growth. 08/11/17 08:25 Gram Stain - Final Neck 08/08/17 17:05 Wound Culture - Final Neck No pathogens isolated. 08/07/17 16:25 Urine Culture - Final Urine,Catheterized No growth. 08/08/17 17:05 Gram Stain - Final Neck Serology 08/07/17 08/07/17 08/07/17 Range/Units 16:43 16:25 03:25 Urine Color Yellow (Yellow) Urine Clarity Cloudy A (Clear) Urine pH 5.5 (5.0-8.0) pH Units Ur Specific [place] 1.025 (1.010-1.025) Urine Protein 100 H (Neg-Trace) mg/dL Urine Glucose (UA) Normal (Normal) mg/dL Urine Ketones Negative (Negative) mg/dL Urine Blood Negative (Negative) Urine Nitrite Negative (Negative) Urine Bilirubin Negative (Negative) Urine Urobilinogen Normal (Normal) mg/dL Ur Leukocyte Esterase Negative (Negative) Urine Microscopic RBC 0-3 (0-3) per hpf Urine Microscopic WBC 0-3 (0-3) per hpf Ur Squamous Epith Cells Many H (None-Few) per lpf Urine Bacteria Few (None-Few) per hpf Hyaline Casts None Seen (None-Few) per lpf Urine Yeast Few H (None Seen) per hpf Urine Creatinine 136 mg/dL Urine Sodium 54.4 mEq/L Hepatitis C Ab Screen Nonreactive (Nonreactive) HIV Ag/Ab Combo Qual Nonreactive (Nonreactive) 08/07/17 Range/Units 03:25 Urine Color Dark Yellow (Yellow) Urine Clarity Clear (Clear) Urine pH 5.5 (5.0-8.0) pH Units Ur Specific [place] 1.021 (1.010-1.025) Urine Protein 100 H (Neg-Trace) mg/dL Urine Glucose (UA) Normal (Normal) mg/dL Urine Ketones Negative (Negative) mg/dL Urine Blood Negative (Negative) Urine Nitrite Negative (Negative) Urine Bilirubin Negative (Negative) Urine Urobilinogen Normal (Normal) mg/dL Ur Leukocyte Esterase Negative (Negative) Urine Microscopic RBC (0-3) per hpf Urine Microscopic WBC (0-3) per hpf Ur Squamous Epith Cells (None-Few) per lpf Urine Bacteria (None-Few) per hpf Hyaline Casts (None-Few) per lpf Urine Yeast (None Seen) per hpf Urine Creatinine mg/dL Urine Sodium mEq/L Hepatitis C Ab Screen (Nonreactive) HIV Ag/Ab Combo Qual (Nonreactive) Exam - Constitutional Vitals: Temp Pulse Resp BP Pulse Ox 98.7 F 61 14 113/74 95 08/16/17 06:59 08/16/17 06:59 08/16/17 06:59 08/16/17 06:59 08/16/17 06:59 General appearance: average body habitus, cooperative, no acute distress - Head Head exam: Present: atraumatic, normal inspection, normocephalic - Eye Eye exam: Present: EOMI, normal appearance, PERRL Pupils: Present: normal accommodation - ENT ENT exam: Present: mucous membranes moist Additional comments: Oral thrush improved. - Neck Additional comments: Erythema improved. Drain site with scant serous drainage on the dressing. No active drainage or fluctuance noted. - Respiratory Respiratory exam: Present: CTAB. Absent: rales, respiratory distress, rhonchi, wheezes - Cardiovascular Cardiovascular exam: Present: RRR, +S1, +S2 - GI/Abdominal GI/Abdominal exam: Present: normal bowel sounds, soft. Absent: distended, tenderness - Extremities Exam Extremities exam: Present: normal inspection. Absent: joint swelling, pedal edema, tenderness - Neurological Exam Neurological exam: Present: alert, oriented X3, no focal deficits - Psychiatric Psychiatric exam: Present: normal affect, normal mood - Skin Skin exam: Present: dry, intact, normal color, warm - VTE Documentation of Mechanical Device: Intermittent pneumatic compression device Consult Discharge Plan - Plan Additional Instructions: F/up with PCP in 1-2 weeks F/up with ENT at [place] in 1 week for wound check F/up with EP Cardiology in 4 weeks - web request being placed. Finish all antibiotics even if you feel better. Go to nearest emergency room for any new or worsening symptoms. Referrals: Salas Norman CNP [Primary Care Provider] - 08/28/17 1:00 pm (Please call to make a 1-2 week followup. ) Natanael Ronquillo MD [Partnered Physician] - 08/22/17 2:15 pm Prescriptions: OxyCODONE/APAP 5/325 [Percocet 5/325 MG] 1 each PO Q6HR PRN 5 Days #10 tablet PRN Reason: Moderate to Severe Pain Amoxicillin/Clavulanate [Augmentin] 875 mg PO BIDWM #10 tablet Lactobacillus [Culturelle] 2 each PO DAILY #20 cap.[email or web address] - Attending Attestation I examined this patient and my medical decision-making was reviewed with the Resident Physician. I agree with the documented findings, disposition and treatment plan as described except to the extent set forth below.
[2017-08-16] MEDS: Magic Mouthwash 10 ML UD Cup PO SCH ×2 (09:42→12:53)
[2017-08-16] MEDS: Lactobacillus 1 EACH CAP.SPRINK PO SCH (09:47)
[2017-08-16 12:33] VITALS: BP 119/76
--- NOTE | 2017-08-16 13:52 | Discharge Summary ---
- NOTES TO OUTPATIENT PROVIDER Notes to Outpatient Provider: Peritonsillar and submental abscess s/p I&D, bradycardia on Holter monitor Orders not resulted at time of discharge: Pending orders 08/08/17 17:13 Culture,Anaerobic [RM] Routine Culture,Wound [RM] Routine 08/14/17 08:49 ECG event monitor 4 weeks [ECG] Routine Date of Encounter: 08/16/17 Time of Encounter: 13:50 - Discharge Diagnosis (1) Sepsis Priority: Primary Status: Acute Qualifiers: Sepsis type: Streptococcus, unspecified Qualified Code(s): A40.9 - Streptococcal sepsis, unspecified; A40 - Streptococcal sepsis (2) Tobacco abuse Priority: Secondary Status: Chronic (3) LESLIE (acute kidney injury) Priority: Primary Status: Resolved (4) Chest pain Priority: Primary Status: Acute Qualifiers: Chest pain type: chest pain due to myocardial ischemia Ischemic chest pain type: unspecified angina pectoris type Qualified Code(s): I25.9 - Chronic ischemic heart disease, unspecified (5) Bradycardia Priority: Primary Status: Acute (6) Peritonsillar abscess Priority: Primary Status: Acute Hospital course: Mr. Wilson is a 52 year old male with h/o- drug and tobacco abuse and poor medical followup, was admitted with worsening throat pain and fever/chills. He was noted to be septic with throat infection. CT neck showed abscesses per the official report. He was started on IV Clindamycin and Vancomycin initially. ENT was consulted, underwent operative incision and drainage of right peritonsillar, submental abscesses. Fluid culture grew Step anginosus and Prevotella eventually. ID has been on board, changed antibiotics to IV Unasyn. He was also noted to have developed asymptomatic bradycardia during hospital course, improved with IV Atropine and Dopamined drips. Seen by Cardiology, recommended outpatient Holter monitoring and EP Cardiology f/up. Patient is currently improved, has surgical drains removed by ENT, medically stable for discharge on oral antibiotics and outpatient ENT f/up. Discharge discussed with: patient, nurse, social work Time spent discussing smoking cessation with patient: 3 to 10 minutes - Time Spent with Patient Total time spent providing and/or coordinating discharge services: Greater than 30 minutes (45 min) - Discharge Medications Prescriptions: OxyCODONE/APAP 5/325 [Percocet 5/325 MG] 1 each PO Q6HR PRN 5 Days #10 tablet PRN Reason: Moderate to Severe Pain Amoxicillin/Clavulanate [Augmentin] 875 mg PO BIDWM #10 tablet Lactobacillus [Culturelle] 2 each PO DAILY #20 cap.sprink Home Medications: Amoxicillin/Clavulanate [Augmentin] 875 mg PO BIDWM #10 tablet 08/16/17 [Rx] Lactobacillus [Culturelle] 2 each PO DAILY #20 cap.sprink 08/16/17 [Rx] OxyCODONE/APAP 5/325 [Percocet 5/325 MG] 1 each PO Q6HR PRN 5 Days #10 tablet [Rx] Allergies/Adverse Reactions: 3 Allergy/AdvReac Type Severity Reaction Status Date / Time gabapentin [From Neurontin] AdvReac Nausea Verified 08/17/17 17:29 pregabalin [From Lyrica] AdvReac Nausea Verified 08/17/17 17:29 Date of admission: 08/07/17 01:08 Primary care physician: Salas Norman CNP Consults: 08/07/17 01:38 Consult to ENT [CONS] Routine Consulting Provider: ENT Gayla Reason for Consult: severe pharyngitis, neck CT showed swelling, but limited view due to lack of contrast (patient has LESLIE) Call Completed: Yes 08/07/17 01:42 Consult to Dispensing Optician Apprentice [CONS] Routine Reason for SW Consult: discharge planning 08/12/17 13:16 Consult to Critical Care [CONS] Routine Consulting Provider: [facility] Gayla Reason for Consult: symtomatic bradycardia Call Completed: Yes 08/12/17 13:43 Consult to Cardiology [CONS] Routine Comment: Consulting Provider: Cardiology Gayla Reason for Consult: symptomatic bradycardia Call Completed: Yes Discharging clinician: Chloe Dutta Anticipated date of discharge: 08/16/17 - Constitutional Vitals: Temp Pulse Resp BP Pulse Ox 98.9 F 61 14 119/76 97 08/16/17 12:32 08/16/17 12:32 08/16/17 12:32 08/16/17 12:32 08/16/17 12:32 General appearance: Present: mild distress, A&O X 3, answers questions appropriately - Cardiovascular Cardiovascular exam: Present: RRR, +S1, +S2. Absent: diastolic murmur, gallop, rubs, systolic murmur - Patient Status Disposition: Home, Self-Care Condition: Fair Functional capacity at discharge: independent ambulation Overall status at discharge: patient is progressing back to baseline - Discharge Instructions Follow Up With: Salas Norman CNP [Primary Care Provider] - 08/28/17 1:00 pm (Please call to make a 1-2 week followup. ) Natanael Ronquillo MD [Partnered Physician] - 08/22/17 2:15 pm Additional Instructions: F/up with PCP in 1-2 weeks F/up with ENT at [facility] in 1 week for wound check F/up with EP Cardiology in 4 weeks - web request being placed. Finish all antibiotics even if you feel better. Go to nearest emergency room for any new or worsening symptoms. - Diet and Activity Activity: resume usual activities as tolerated, other (Holter monitor for 4 weeks, per Cardiology) Diet: regular diet - VTE Documentation of Mechanical Device: Intermittent pneumatic compression device
== END 2017-08-16 16:35 | disposition home or self-care (01) | DRG 720 ==
LOC: 3ANU 20:13 → EMEROO 20:13 → 3ANU 23:35 → SUATTDRO 08-07 01:08 → ICNU 08-12 13:37 → 3NENU 08-13 22:21
PROVIDERS: ADMIT Internal Medicine; ATTEND Internal Medicine